=== PATIENT | male | born 1965 | race Two or more races ===

== ENCOUNTER 2020-04-30 08:24 | Outpatient (REF) | payer OTHER, SELFPAY ==
--- NOTE | 2020-04-30 08:42 | XR_ITS ---
EXAMINATION: XR LUMBOSACRAL SPINE CLINICAL INFORMATION: Pain. COMPARISON: None TECHNIQUE: Three views of the lumbosacral spine. FINDINGS: Alignment is anatomic. Disc spaces are maintained. There is mild marginal osteophytosis at L2-L3 and L3-L4. The paravertebral soft tissues are unremarkable. IMPRESSION: Mild spondylosis L2-L3 and L3-L4.
== END 2020-04-30 08:25 | disposition home or self-care (01) ==
LOC: HO.XRAY 08:24
PROVIDERS: PCP Internal Medicine; Visit Provider Physical Medicine & Rehabilitation
DX: M54.5 Low back pain (principal)
CPT/HCPCS: 72100

== ENCOUNTER 2020-11-03 07:46 | Outpatient (REF) | payer OTHER, SELFPAY | END 2020-11-03 07:47 | disposition home or self-care (01) | LOC: HO.HOSX 07:46 | PROVIDERS: PCP Internal Medicine; Visit Provider Orthopaedic Surgery | DX: Z13.89 Encounter for screening for other disorder (principal) ==

== ENCOUNTER 2020-11-11 07:10 | Outpatient (REF) | payer OTHER, SELFPAY ==
--- NOTE | ~2020-11-11 | MR_ITS ---
EXAMINATION: MRI SHOULDER WITHOUT CONTRAST, LEFT CLINICAL INFORMATION: Other specific derangements of left shoulder. Patient reports left shoulder pain for 2 months, decreased range of motion, and no recent injury. COMPARISON: None. TECHNIQUE: MRI scanning is performed using a standard protocol on a high-field strength 1.5 Mirlande magnet. FINDINGS: ROTATOR CUFF: There is mild distal supraspinatus and infraspinatus tendinosis. There is distal subscapularis tendinosis with a small interstitial insertional tear measuring 8 mm transverse and 3 mm craniocaudal. The teres minor tendon is intact. There is trace edema/fluid in the subacromial-subdeltoid bursa. No muscle atrophy or fatty infiltration. BICEPS: There is tendinosis of the intra-articular portion of the long head of the biceps tendon, particularly toward the biceps anchor. CORACOACROMIAL ARCH: The undersurface of the acromion is relatively flat with a small anterior hook (subtle type III acromion process). No subacromial spur. Mild osteoarthritis of the acromioclavicular joint. LABRUM/CAPSULE: Normal. GLENOHUMERAL JOINT/MARROW: Normal. MR/MR shoulder LT wo con IMPRESSION: 1. Mild distal supraspinatus and infraspinatus tendinosis. 2. Distal subscapularis tendinosis with small interstitial insertional tear. 3. Minor subacromial-subdeltoid bursitis. 4. Long head biceps tendinosis. 5. Small anterior hook of the acromion process suggesting a subtle type III acromion process. 6. Mild osteoarthritis of the acromioclavicular joint.
== END 2020-11-11 07:11 | disposition home or self-care (01) ==
LOC: HO.MRI 07:10
PROVIDERS: Visit Provider Orthopaedic Surgery
DX: M24.812 Other specific joint derangements of left shoulder, not elsewhere classified (principal)
CPT/HCPCS: 73221

== ENCOUNTER → 2020-11-21 07:56 | Outpatient (BNVA) | payer OTHER, SELFPAY | PROVIDERS: PCP Pediatrics; Visit Provider Orthopaedic Surgery | DX: M75.102 Unspecified rotator cuff tear or rupture of left shoulder, not specified as traumatic (principal) | CPT/HCPCS: 20610; J1040 ==

== ENCOUNTER 2020-12-19 07:00 | Outpatient (RCR) | payer OTHER, SELFPAY ==
--- NOTE | 2020-12-01 07:50 | MHC.PT.EP ---
[facility] [place] Office [place] Office [place] Office [address] Naida Denson [address] [phone] F: [phone] F: [phone] F: [phone] F: [phone] Physical Therapy Plan of Care Date of Evaluation: Date of Surgery: Diagnosis: unspecified RTC tear L shoulder Assessment: 55 y/o RHD male referred to PT with unspecified RTC tear L shoulder. 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 Examination shows decreased L RTC strength and scapular strength, painful arc with flexion and abduction, and impaired postural awareness. Recommend PT 2x/week for 5 weeks to address impairments, implement HEP, and optimize functional mobility. Pt reports he would like to come only 1x due to co-pay and work schedule. He would like to learn exercises for home. Next visit, we will implement HEP. Frequency and Duration: The patient will be seen 1x for 1 weeks Short Term Goals: 1. I with HEP [facility] Goals: 1 week 1. I with HEP 2. Pt will be able to state precautions of total gym that he has at home and know how to modify pec fly/ lat pulldown exercises. Treatment Plan: Modalities to reduce pain, spasms and effusion. Manual therapy to restore motion and function. Therapeutic exercise to improve strength and flexibility. Neuromuscular re-education for posture and balance. Therapeutic activities to return to functional activities of daily living. Electronically signed by: Piper Zavaleta PT Please sign and return to therapist. Thank you for your referral.
--- NOTE | 2021-01-19 14:43 | MHC.PT.DC ---
[facility] [place] Office [place] Office [place] Office [address] Naida Denson [address] [phone] F: [phone] F: [phone] F: [phone] F: [phone] Physical Therapy Discharge Report Diagnosis: unspecified RTC tear L shoulder Date of Surgery: Date of Evaluation: 12/01/20 Date of Discharge: 01/19/21 Treatments to Date: 3 Cancellations to Date: 0 No Shows to Date: 0 Discharge Status: Independent with HEP Discharge Summary: Pt d/c secondary to I with HEP and only wanted to attend 1x/week for 2-3 weeks. Reviewed HEP and no further questions. He did not f/u with further visits. Electronically signed by: Piper Zavaleta PT Please sign and return to therapist. Thank you for your referral.
== END 2021-01-19 14:00 | disposition home or self-care (01) ==
LOC: HO.PT 07:00
PROVIDERS: PCP Internal Medicine; Visit Provider Orthopaedic Surgery
DX: M75.102 Unspecified rotator cuff tear or rupture of left shoulder, not specified as traumatic (principal)
CPT/HCPCS: 97110; 97161

== ENCOUNTER → 2021-01-09 09:03 | Outpatient (BNVA) | payer OTHER, SELFPAY | PROVIDERS: PCP Internal Medicine; Visit Provider Orthopaedic Surgery ==

== ENCOUNTER → 2021-06-06 14:15 | Outpatient (BNVA) | payer OTHER, SELFPAY | PROVIDERS: PCP Internal Medicine; Referring Provider Internal Medicine; Visit Provider Surgery ==

== ENCOUNTER 2021-06-20 05:49 | Outpatient (REF) | payer OTHER, SELFPAY ==
--- NOTE | ~2021-06-20 | CT_ITS ---
EXAMINATION: CT ABDOMEN AND PELVIS WITH CONTRAST CLINICAL INFORMATION: Left lower quadrant pain. COMPARISON: None. TECHNIQUE: Multidetector volumetric images were obtained from the superior aspect of the liver through the pubic symphysis following administration 85 mL of Omnipaque 350 intravenous contrast. Sagittal and coronal reformatted images were obtained on the technologist's workstation. Oral contrast: Yes This CT examination was performed using dose optimization techniques as appropriate, variously including the following: *Automated exposure control *Adjustment of mA and/or kV according to patient size (this includes techniques or standardized protocols for targeted exams where dose is matched to indication/reason for exam; i.e. extremities or head) *Use of iterative reconstruction technique DLP: 312 mGy-cm. FINDINGS: LUNG BASES: The visualized lung bases are unremarkable. LIVER, GALLBLADDER, AND BILIARY TREE: The liver is normal in size, shape, and attenuation. No focal hepatic lesion or biliary ductal dilatation is present. The gallbladder is unremarkable with no evidence of radiopaque gallstones, gallbladder wall thickening, or obvious pericholecystic inflammatory changes. PANCREAS: Unremarkable. SPLEEN: Unremarkable. ADRENAL GLANDS: Unremarkable. KIDNEYS AND URETERS: The kidneys are normal in size, shape, and attenuation. No hydronephrosis, hydroureter, or calculi seen. No perinephric stranding. BLADDER: Unremarkable. GASTROINTESTINAL TRACT: There is stool throughout the colon questionable for constipation. The small and large bowel are otherwise unremarkable. The appendix is not identified. The stomach is unremarkable. ABDOMINAL WALL: There are small bilateral hernias containing fat. LYMPH NODES: Normal. VASCULAR: Unremarkable. PELVIC VISCERA: Unremarkable. OSSEOUS STRUCTURES: There are degenerative changes of the spine. CT/CT abdomen pelvis w con IMPRESSION: Stool throughout the colon suggestive of constipation. Fleischner guidelines were followed.
[2021-06-20 07:46] LABS: Blood Urea Nitrogen 20 mg/dL (9-16); Estimated Glomerular Filt Rate > 60
[2021-06-20] MEDS: Barium Sulfate Oral (Vanilla) 450 ML ORAL.SUSP 900 ML PO (10:06)
[2021-06-20] MEDS: iohexoL 350 MG/ML 100 ML INFUS..BTL IV (10:06)
== END 2021-06-20 05:50 | disposition home or self-care (01) ==
LOC: HO.CT 05:49
PROVIDERS: PCP Internal Medicine; Visit Provider Surgery
DX: R10.814 Left lower quadrant abdominal tenderness (principal)
CPT/HCPCS: 36415; 74177; 82565; 84520; Q9967

== ENCOUNTER → 2021-06-29 08:55 | Outpatient (BNVA) | payer OTHER, SELFPAY | PROVIDERS: PCP Internal Medicine; Referring Provider Internal Medicine; Visit Provider Surgery ==

== ENCOUNTER 2021-08-18 19:05 | Emergency (ER) | payer OTHER, SELFPAY ==
[2021-08-18 19:48] VITALS: BP 137/83; PULSE 75; RESP 16; TEMP 36; O2SAT 98; BMI 26.6
--- NOTE | 2021-08-18 22:31 | ED.EXTPRO ---
HPI - Extremity Problem General Chief complaint: Extremity Problem Stated complaint: lt leg pain Time Seen by Provider: 08/18/21 21:50 Source: patient Mode of arrival: ambulatory Limitations: no limitations History of Present Illness HPI Narrative: Patient with chronic left thigh pain posteriorly for last 2 years been followed by pain clinic neurologist and PCP on multiple pain medication muscle relaxants comes here for pain getting worse for last 4 days . Pain is localized to the posterior part of the thigh without any swelling of the thigh no relation with movement or ambulation no back pain no numbness or loss of sensation of the lower extremity no bladder bowel involvement patient been followed by pain clinic also Related Data Home Medications Medication Instructions Recorded Confirmed cholecalciferol (vitamin D3) 25 25 mcg PO DAILY 11/03/20 06/29/21 mcg (1,000 unit) tablet cholecalciferol (vitamin D3) 50 50 mcg PO DAILY 11/03/20 06/29/21 mcg (2,000 unit) capsule fluticasone propionate 50 1 spray INTRANASAL DAILY 11/03/20 06/29/21 mcg/actuation nasal spray,suspension loratadine 10 mg tablet 10 mg PO DAILY 11/03/20 06/29/21 naproxen sodium 550 mg tablet 550 mg PO BID PRN 11/03/20 06/29/21 diclofenac sodium 1 % topical gel 2 g TOPICAL QID 01/09/21 06/29/21 magnesium oxide 400 mg (241.3 mg 200 mg PO QAM 01/09/21 06/29/21 magnesium) tablet Allergies Allergy/AdvReac Type Severity Reaction Status Date / Time grass pollen [GRASS POLLEN] Allergy Severe FACIAL Verified 06/29/21 09:03 SWELLING nut - unspecified Allergy Severe THROAT Verified 06/29/21 09:03 [NUT - UNSPECIFIED] CLOSING, EYES SHUT. Review of Systems Review of Systems: Yes all other systems are reviewed and are negative [facility] Past Medical History Medical History Internal derangement of left shoulder Painful arc syndrome of left shoulder Surgical History History of shoulder surgery Family History Family History Father No problems noted. Mother No problems noted. 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 Oriented X3. No acute distress. Anxious CVS: Normal heart rate and rhythm. Pulses normal. Respiratory: No respiratory distress. Equal air entry bilateral, Abdomen: Soft and nontender. Bowel sounds are present, Skin: Skin warm and dry. Normal skin color. Normal skin turgor. Extremities: No lower extremity edema. No calf tenderness, localized tenderness left thigh posteriorly about 10 cm above the popliteal fossa, SLR negative bilaterally. gait is normal Neuro: Oriented X 3. No motor deficit. No sensory deficit.No cerebellar signs , cranial nerves II-XII intact MDM - Extremity (Nontraumatic) MDM Narrative Medical decision making narrative: D-dimer negative for blood clots patient pain in left leg is likely from musculoskeletal origin already has a plan to see pain clinic and neurologist will follow with them Lab Data Attestation: I reviewed the patient's lab results. Labs: Lab Results 08/18/21 Range/Units 22:20 D-Dimer High Sensitivty < 150 NG/ML Discharge Plan Discharge Clinical Impression: Musculoskeletal leg pain Qualifiers: Laterality: left Qualified Code(s): M79.605 - Pain in left leg Patient Disposition: Home, Self-Care Instructions: Leg Pain (ED) Additional Instructions: Your have muscular leg pain follow-up with your neurologist/PCP / pain clinic as planned Take medication as prescribed Your blood test Test for the clot in the leg is negative Prescriptions: No Action cholecalciferol (vitamin D3) 50 mcg (2,000 unit) capsule 50 mcg PO DAILY RF: 0 naproxen sodium 550 mg tablet 550 mg PO BID PRN (Reason: pain) RF: 0 cholecalciferol (vitamin D3) 25 mcg (1,000 unit) tablet 25 mcg PO DAILY RF: 0 loratadine 10 mg tablet 10 mg PO DAILY RF: 0 fluticasone propionate 50 mcg/actuation spray,suspension 1 spray intranasal DAILY RF: 0 diclofenac sodium 1 % gel 2 g topical QID RF: 0 magnesium oxide 400 mg (241.3 mg magnesium) tablet 200 mg PO QAM RF: 0 Interventions: ED Discharge Assessment Last Done: 08/18/21 23:17 Discharge Date/Time: 08/18/21 23:18
[2021-08-18 22:54] LABS: D Dimer High Sensitivity < 150 NG/ML
== END 2021-08-18 23:18 | disposition home or self-care (01) ==
PROVIDERS: Emergency Provider Internal Medicine; PCP Internal Medicine
DX: M79.605 Pain in left leg (principal)
CPT/HCPCS: 36415; 85379; 99283

== ENCOUNTER → 2021-08-28 08:33 | Outpatient (BNVA) | payer OTHER, SELFPAY | PROVIDERS: PCP Internal Medicine; Visit Provider Internal Medicine ==

== ENCOUNTER 2021-09-07 12:56 | Outpatient (REF) | payer OTHER, SELFPAY ==
--- NOTE | ~2021-09-07 | MR_ITS ---
EXAMINATION: MR LUMBAR SPINE WITHOUT CONTRAST CLINICAL INFORMATION: Lumbar radiculopathy. COMPARISON: Lumbar spine radiographs 04/30/2020. TECHNIQUE: MRI of the lumbar spine was obtained using routine sequences without contrast. FINDINGS: There is slight grade 1 anterolisthesis of L3 on L4 that appears to be related to facet degenerative changes at this level. Alignment is otherwise normal. Vertebral heights are preserved. No acute bone marrow signal changes. There is slight loss of intervertebral disc height and T2 signal intensity at multiple levels related to disc degeneration. The tip of the conus medullaris is located at L1. No mass effect on the conus. Visualized distal cord signal intensity is normal. At L1-L2 the annular contour is normal. No canal or neuroforaminal compromise. At L2-L3 there is an asymmetrically bulging disc to the left. Mild canal stenosis. Mild mass effect on the foraminal/extraforaminal segment of the left L2 nerve root. At L3-L4 there is a diffusely bulging disc. Advanced facet degenerative change. Severe canal stenosis. Mild to moderate mass effect on both L3 foraminal nerve roots. At L4-L5 there is a diffusely bulging disc. Bilateral facet degenerative change. Mild canal stenosis. Symmetric subarticular zone narrowing causes abutment of both traversing L5 nerve roots. No foraminal nerve root compression. At L5-S1 the annular contour is normal. No canal or neuroforaminal compromise. Limited visualization of the retroperitoneal anatomy reveals no abnormal finding. Psoas and paraspinal muscle groups are symmetric. MR/MR lumbar spine wo con IMPRESSION: There is multilevel degenerative spondylosis of the lumbar spine with slight grade 1 anterolisthesis of L3 on L4 related to facet degenerative changes at this level. Severe canal stenosis at L3-L4. Mild canal stenosis at L2-L3 and L4-L5. There are varying degrees of mass effect on the traversing and foraminal segments of the nerve roots as described above. For instance there is mild mass effect on the foraminal/extraforaminal segment of the left L2 nerve root related to an asymmetrically bulging L2-L3 disc. There is also mild to moderate mass effect on both L3 foraminal nerve roots related to degenerative changes at L3-L4.
== END 2021-09-07 12:57 | disposition home or self-care (01) ==
LOC: HO.MRI 12:56
PROVIDERS: Visit Provider Internal Medicine
DX: M54.16 Radiculopathy, lumbar region (principal)
CPT/HCPCS: 72148

== ENCOUNTER → 2021-09-22 08:32 | Outpatient (BNVA) | payer OTHER, SELFPAY | PROVIDERS: PCP Internal Medicine; Visit Provider Internal Medicine ==

== ENCOUNTER 2021-10-25 05:40 | Outpatient (REF) | payer OTHER, SELFPAY ==
--- NOTE | ~2021-10-25 | FL_ITS ---
EXAMINATION: XR FLUOROSCOPY WITH IMAGES CLINICAL INFORMATION: Spinal stenosis lumbar region COMPARISON: None. TECHNIQUE: Fluoroscopy performed by Dr. Damien Peters. Fluoroscopy time: 0.1 minutes DAP: 0.516 Gycm2 Images: 2 FINDINGS: Needle and contrast seen overlying the mid dorsal area superior aspect of the L5 vertebral body. FL/FL guidance in treatment room IMPRESSION: Fluoroscopy provided for pain management.
== END 2021-10-25 05:41 | disposition home or self-care (01) ==
LOC: HO.RADIR 05:40
PROVIDERS: Visit Provider Internal Medicine
DX: M48.061 Spinal stenosis, lumbar region without neurogenic claudication (principal); M54.16 Radiculopathy, lumbar region
CPT/HCPCS: 62323; J1040; Q9967

== ENCOUNTER → 2021-12-01 08:29 | Outpatient (BNVA) | payer OTHER, SELFPAY | PROVIDERS: PCP Internal Medicine; Visit Provider Internal Medicine | DX: M48.061 Spinal stenosis, lumbar region without neurogenic claudication (principal) ==

== ENCOUNTER 2022-03-27 06:49 | Outpatient (REF) | payer OTHER, SELFPAY ==
[2022-03-27 07:02] LABS: MANUAL DIFF FLAG NO
[2022-03-27 07:15] LABS: Basophils Percent Auto 0.4 % (0-2); Eosinophils Absolute Auto 0.1 X10*3/uL (0.0-0.4); Eosinophils Percent Auto 1.5 % (0-4); Hemoglobin 13.8 g/dl (14.0-18.0); Imm Gran Abs Auto 0.01 X10*3/uL (0.00-0.03); Imm Gran Pct Auto 0.2 % (0.0-0.4); Lymphocytes Percent Auto 36.7 % (20-40); Mean Corpuscular HGB Conc 32.9 g/dl (31.0-36.0); Mean Corpuscular Hemoglobin 28.3 pg (27.0-33.0); Mean Corpuscular Volume 86.1 fL (80.0-98.0); Mean Platelet Volume 10.8 fL (9.4-12.4); Monocytes Absolute Auto 0.6 X10*3/uL (0.1-1.2); Neutrophils Absolute Auto 2.8 x10*3/uL (2.0-8.3); Neutrophils Percent Auto 51.2 % (45-73); Platelet Count 189 X10*3/uL (160-400); Red Blood Count 4.88 X10*6/uL (4.60-5.80); Red Cell Distribution Width 12.9 % (11.0-16.0); White Blood Count 5.5 X10*3/uL (4.8-10.8)
[2022-03-27 07:22] LABS: Estimated Average Glucose 117 mg/dL; Hemoglobin A1c % 5.7 %
[2022-03-27 07:41] LABS: Alanine Aminotransferase 17 U/L (0-40); Alkaline Phosphatase 77 U/L (39-117); Anion Gap 13 (12-20); Aspartate Amino Transferase 21 U/L (5-37); Bilirubin Total 0.4 mg/dL (0.0-1.0); Blood Urea Nitrogen 19 mg/dL (9-16); Calcium 9.2 mg/dL (8.4-10.2); Carbon Dioxide 26 mmol/L (22-29); Chloride 105 mmol/L (96-108); Cholesterol 249 mg/dL; Estimated Glomerular Filt Rate > 60; Glucose Random 102 mg/dL (60-115); HDL Cholesterol 65 mg/dL; LDL Cholesterol Calculated 162 mg/dl; Potassium 3.7 mmol/L (3.3-5.1); Sodium 140 mmol/L (135-145); Total Protein 6.7 g/dL (6.5-8.0); Triglycerides 112 mg/dL
[2022-03-27 08:05] LABS: Thyroid Stimulating Hormone 2.04 uIU/mL (0.32-4.0)
== END 2022-03-27 06:50 | disposition home or self-care (01) ==
LOC: HO.LAB 06:49
PROVIDERS: PCP Internal Medicine; Visit Provider Internal Medicine
DX: Z00.00 Encounter for general adult medical examination without abnormal findings (principal); E78.2 Mixed hyperlipidemia
CPT/HCPCS: 36415; 80053; 80061; 83036; 84443; 85025

== ENCOUNTER 2022-05-01 16:53 | Outpatient (REF) | payer OTHER, SELFPAY | END 2022-05-01 16:54 | disposition home or self-care (01) | LOC: HO.XRAY 16:53 | PROVIDERS: Absent Provider Internal Medicine; PCP Internal Medicine; Visit Provider Family Medicine | DX: M79.645 Pain in left finger(s) (principal) | CPT/HCPCS: 73130 ==

== ENCOUNTER 2022-05-02 06:39 | Outpatient (REF) | payer OTHER, SELFPAY ==
[2022-05-02 08:01] LABS: Anion Gap 12 (12-20); Blood Urea Nitrogen 16 mg/dL (9-16); Calcium 9.8 mg/dL (8.4-10.2); Carbon Dioxide 31 mmol/L (22-29); Chloride 101 mmol/L (96-108); Cholesterol 193 mg/dL; Estimated Glomerular Filt Rate > 60; Glucose Random 97 mg/dL (60-115); HDL Cholesterol 65 mg/dL; LDL Cholesterol Calculated 108 mg/dl; Potassium 4.1 mmol/L (3.3-5.1); Sodium 140 mmol/L (135-145); Triglycerides 101 mg/dL
[2022-05-02 08:25] LABS: Prostate Specific Antigen 0.22 ng/mL (<0.05-4.0)
[2022-05-02 10:29] LABS: Appearance Urine Clear; Color Urine Yellow; Glucose Urine UA Negative (Negative); Leukocyte Esterase Urine Negative (Negative); Nitrite Urine Negative (Negative); PH 7.5 (5.0-9.0); Urine Blood Negative (Negative); Urine Ketones Negative (Negative); Urine Protein Negative (Neg-Trace)
[2022-05-02 10:35] LABS: Bacteria Urine None Seen (None Seen); Hyaline Casts Urine 0-2 /LPF (0-2); Squamous Epithelial Cell Urine 0-2 /HPF (0-2); WBC Urine 0-5 /HPF (0-5)
== END 2022-05-02 06:40 | disposition home or self-care (01) ==
LOC: HO.LAB 06:39
PROVIDERS: Absent Provider Internal Medicine; PCP Internal Medicine; Visit Provider Family Medicine
DX: Z12.5 Encounter for screening for malignant neoplasm of prostate (principal); E78.5 Hyperlipidemia, unspecified; R32 Unspecified urinary incontinence
CPT/HCPCS: 36415; 80048; 80061; 81001; 84153; 87086

== ENCOUNTER → 2022-09-28 13:29 | Outpatient (BNVA) | payer OTHER, SELFPAY | PROVIDERS: PCP Internal Medicine; Visit Provider Physician Assistant | DX: Z13.89 Encounter for screening for other disorder (principal) ==

== ENCOUNTER 2023-02-27 05:56 | Outpatient (REF) | payer OTHER, SELFPAY ==
--- NOTE | ~2023-02-27 | CT_ITS ---
EXAMINATION: CT ABDOMEN AND PELVIS WITH CONTRAST CLINICAL INFORMATION: Abdominal pain. COMPARISON: CT scan of the abdomen and pelvis dated 06/20/2021. TECHNIQUE: Multidetector volumetric images were obtained from the superior aspect of the liver through the pubic symphysis following administration 85 mL of Omnipaque 350 intravenous contrast. Sagittal and coronal reformatted images were obtained on the technologist's workstation. Oral contrast: No This CT examination was performed using dose optimization techniques as appropriate, variously including the following: *Automated exposure control *Adjustment of mA and/or kV according to patient size (this includes techniques or standardized protocols for targeted exams where dose is matched to indication/reason for exam; i.e. extremities or head) *Use of iterative reconstruction technique DLP: 298 mGy-cm FINDINGS: LUNG BASES: The visualized lung bases are unremarkable. LIVER, GALLBLADDER, AND BILIARY TREE: Tiny hypoechoic focus anterosuperiorly in the dome is too small to characterize. The remainder of the liver is unremarkable. PANCREAS: Unremarkable. SPLEEN: Unremarkable. ADRENAL GLANDS: Unremarkable. KIDNEYS AND URETERS: The kidneys are normal in size, shape, and attenuation. No hydronephrosis, hydroureter, or calculi seen. No perinephric stranding. BLADDER: Unremarkable. GASTROINTESTINAL TRACT: The stomach, small bowel and appendix are unremarkable. The colon shows mild to moderate stool distally to the rectum without surrounding abnormality. ABDOMINAL WALL: Small fat-containing bilateral inguinal hernias without associated abnormality. LYMPH NODES: No lymphadenopathy. VASCULAR: Unremarkable. PELVIC VISCERA: Unremarkable. OSSEOUS STRUCTURES: Unremarkable. CT/CT abdomen pelvis w IV con IMPRESSION: 1. No acute intra-abdominal/pelvic abnormality to explain the patient's pain. 2. Small fat-containing bilateral inguinal hernias without associated abnormality. No significant change.
[2023-02-27] MEDS: iohexoL 350 MG/ML 100 ML INFUS..BTL IV (08:23)
[2023-02-27] MEDS: Barium Sulfate Oral (Vanilla) 450 ML ORAL.SUSP 900 ML PO (08:23)
[2023-02-27 13:41] LABS: Creatinine POC 0.6 mg/dL (0.5-1.4); GFR POC 60
== END 2023-02-27 05:57 | disposition home or self-care (01) ==
LOC: HO.CT 05:56
PROVIDERS: PCP Internal Medicine; Visit Provider Internal Medicine
DX: R10.32 Left lower quadrant pain (principal)
CPT/HCPCS: 74177; 82565; Q9967

== ENCOUNTER 2023-03-11 06:10 | Outpatient (REF) | payer OTHER, SELFPAY ==
--- NOTE | ~2023-03-11 | XR_ITS ---
EXAMINATION: XR SHOULDER, LEFT CLINICAL INFORMATION: Left shoulder pain COMPARISON: MR left shoulder 11/11/2020. TECHNIQUE: AP external rotation, Grashey, scapular Y, and axillary views of the left shoulder. FINDINGS: Mild hypertrophic change along the acromioclavicular joint. Acromioclavicular joint preserved. Glenohumeral alignment maintained. Degenerative changes in the imaged upper thoracic spine. No abnormal soft tissue calcifications identified adjacent to the humeral head. XR/XR shoulder LT min 2V IMPRESSION: Mild osteoarthritis acromioclavicular joint.
== END 2023-03-11 06:11 | disposition home or self-care (01) ==
LOC: HO.XRAY 06:10
PROVIDERS: PCP Internal Medicine; Visit Provider Internal Medicine
DX: M25.512 Pain in left shoulder (principal)
CPT/HCPCS: 73030

== ENCOUNTER 2023-04-22 16:22 | Outpatient (REF) | payer OTHER, SELFPAY ==
[2023-04-22 17:29] LABS: Alanine Aminotransferase 17 U/L (0-40); Albumin Level 4.2 g/dL (3.5-5.0); Alkaline Phosphatase 78 U/L (39-117); Anion Gap 16 (12-20); Aspartate Amino Transferase 21 U/L (5-37); Bilirubin Direct 0.2 mg/dL (0.0-0.5); Bilirubin Total 0.5 mg/dL (0.0-1.0); Blood Urea Nitrogen 10 mg/dL (9-16); Calcium 9.8 mg/dL (8.4-10.2); Carbon Dioxide 27 mmol/L (22-29); Chloride 102 mmol/L (96-108); Cholesterol 231 mg/dL (<200); Estimated Glomerular Filt Rate > 60; Glucose Random 84 mg/dL (60-115); HDL Cholesterol 65 mg/dL (>40); LDL Cholesterol Calculated 145 mg/dL (<100); Potassium 3.5 mmol/L (3.3-5.1); Sodium 141 mmol/L (135-145); Total Protein 7.2 g/dL (6.5-8.0); Triglycerides 105 mg/dL (<150)
== END 2023-04-22 16:23 | disposition home or self-care (01) ==
LOC: HO.LAB 16:22
PROVIDERS: PCP Internal Medicine; Visit Provider Internal Medicine
DX: E78.00 Pure hypercholesterolemia, unspecified (principal)
CPT/HCPCS: 36415; 80048; 80061; 80076

== ENCOUNTER 2023-06-10 10:20 | Outpatient (AMB) | payer OTHER, SELFPAY ==
--- NOTE | 2023-06-10 10:22 | A.OFFVIS_ITS ---
Intake Intake Visit Reasons: o/v Painful arc syndrome of left shoulder Intake Note: Alvin is a 57 year old right hand dominant male who presents today for a follow up of his left shoulder. At his last appointment it was recommended that he continue activity modification and scapular stabilization. Possibility of subacromial decompression in the future but it would be premature at this time. Jacey reports that he had not had any changes in his symptoms, she explains that he is worried as he had surgery on the right sohulder and the left shoulder is feeling the same as the right did prior to surgery. 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 Allergies grass pollen [GRASS POLLEN] Allergy (Severe, Verified 09/28/22 13:42) FACIAL SWELLING nut - unspecified [NUT - UNSPECIFIED] Allergy (Severe, Verified 09/28/22 13:42) THROAT CLOSING, EYES SHUT. HPI o/v Painful arc syndrome of left shoulder HPI Details This is a 58 year old man who presents for a follow up of his left shoulder painful arc syndrome. He has a hx of bilateral shoulder in the past, and has known mild shoulder OA. He complains of pain with daily activity, worse with overhead activity, lifting, and at night. 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 He had done some exercises at home, but stopped due to his pain. He was last seen for his shoulder on 01/09/21 and told to continue his home exercises, and that he may benefit from a SAD in the future. He is hesitant to begin formal PT as he is worried about the cost. [facility] Medical History (Updated 06/10/23 @ 11:10 by Taco Crabtree) Spinal stenosis of lumbar region Lumbar spondylosis Painful arc syndrome of left shoulder Internal derangement of left shoulder Surgical History History of shoulder surgery Family History Father No problems noted. Mother No problems noted. 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 Review of Systems Const All systems reviewed & are unremarkable except as noted in HPI and below Physical Exam Const General: no acute distress, alert and awake Orientation/consciousness: patient oriented x3 HEENT Head: Yes normocephalic and Yes atraumatic Eyes EOM: EOMs intact bilaterally Resp Effort & Inspection: normal respiratory effort and able to speak in complete sentences Cardio Jugular venous distension: no JVD Skin General skin exam: turgor normal Rashes: no rashes Neuro General: patient oriented x3 Extrem Other: Left Shoulder: 4+/5 ec + O'toña's 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 He has pain with daily activity, worse with overhead activity, lifting, and at night. He denies any recent prior treatment. I discussed his diagnosis and treatment options. I recommend he use his LUE for daily activities as tolerated. I ordered an MRI of his left shoulder, and he was given a handout of shoulder exercises. He will follow up when completed for review. (2) Tear of left biceps muscle: Code(s): S46.212A - Strain of muscle, fascia and tendon of other parts of biceps, left arm, initial encounter Plan Scribed for Salomón Barragan MD by Taco Crabtree, regional medical director, on 06/10/23 at 11:15 AM, EST. Orders: Orders MR shoulder LT wo con Today M24.812 - Other specific joint derangements of left shoulder, not elsewhere classified, S46.212A - Strain of muscle, fascia and tendon of other parts of biceps, left arm, initial encounter Coding Level of Care Code Est Pt Level 4 (41892) Diagnoses Internal derangement of left shoulder M24.812 Tear of left biceps muscle S46.212A
== END 2023-06-10 11:58 | disposition home or self-care (01) ==
PROVIDERS: PCP Internal Medicine; Visit Provider Orthopaedic Surgery
DX: M24.812 Other specific joint derangements of left shoulder, not elsewhere classified (principal); S46.212A Strain of muscle, fascia and tendon of other parts of biceps, left arm, initial encounter
CPT/HCPCS: 99214

== ENCOUNTER → 2023-06-10 10:20 | Outpatient (BNVA) | payer OTHER, SELFPAY | PROVIDERS: PCP Internal Medicine; Visit Provider Orthopaedic Surgery ==

== ENCOUNTER 2023-06-27 15:30 | Outpatient (AMB) | payer OTHER, SELFPAY ==
--- NOTE | 2023-06-27 15:32 | A.OFFVIS_ITS ---
Intake Intake Visit Reasons: OV-Painful arc syndrome of left shoulder Intake Note: This is a 58 year old male who presents for a follow up for his left shoulder MRI. Allergies grass pollen [GRASS POLLEN] Allergy (Severe, Verified 06/27/23 15:34) FACIAL SWELLING nut - unspecified [NUT - UNSPECIFIED] Allergy (Severe, Verified 06/27/23 15:34) THROAT CLOSING, EYES SHUT. Medication List - Last Reconciled 06/27/23 by Aylin Ramirez RN cholecalciferol (vitamin D3) 25 mcg PO DAILY fluticasone propionate 50 mcg/actuation 1 spray intranasal DAILY loratadine 10 mg PO DAILY magnesium oxide 200 mg PO QAM naproxen sodium 550 mg PO BID PRN HPI OV-Painful arc syndrome of left shoulder HPI Details Alvin is a 58 year old man who presents for a follow up of his left shoulder internal derangement. He has a hx of right RTC repair in 2016 . He complains of pain with daily activity, worse with overhead activity, lifting, and at night. He complains of pain in his biceps with lifting activities. He had done supervised PT but stopped due to his pain. He is here today for MRI review. [facility] Medical History (Updated 06/10/23 @ 11:10 by Taco Crabtree) Spinal stenosis of lumbar region Lumbar spondylosis Painful arc syndrome of left shoulder Internal derangement of left shoulder Surgical History History of shoulder surgery Family History Father No problems noted. Mother No problems noted. 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 Review of Systems Const All systems reviewed & are unremarkable except as noted in HPI and below Physical Exam Const General: no acute distress, alert and awake Orientation/consciousness: patient oriented x3 HEENT Head: Yes normocephalic and Yes atraumatic Eyes EOM: EOMs intact bilaterally Resp Effort & Inspection: normal respiratory effort and able to speak in complete sentences Cardio Jugular venous distension: no JVD Skin General skin exam: turgor normal Rashes: no rashes Neuro General: patient oriented x3 Extrem Other: Left Shoulder: 4+/5 ec + O'toña's Neg H/N Psych Appearance: grossly normal Affect: normal affect Attitude: cooperative Results Reviewed Results Reviewed: I personally reviewed the MR images from 2020 1) Mild distal supraspinatus and infraspinatus tendinosis. 2. Distal subscapularis tendinosis with small interstitial insertional tear. 3. Minor subacromial-subdeltoid bursitis. 4. Long head biceps tendinosis. 5. Small anterior hook of the acromion process suggesting a subtle type III acromion process. 6. Mild osteoarthritis of the acromioclavicular joint. Assessment & Plan Assessment & Plan (1) Internal derangement of left shoulder: Code(s): M24.812 - Other specific joint derangements of left shoulder, not elsewhere classified Plan: This is a 58 year old man with left shoulder internal derangement, with a likely biceps tendon tear. He has pain with daily activity, worse with overhead activity, lifting, and at night. He denies any recent prior treatment. I discussed his diagnosis and treatment options. I recommend shoulder with likely biceps tenotomy vs tenodesis if it isn't already completely torn. I discussed the risks benefits and alternatives including but not limited to the risk of pain, infection, stiffness, need for further surgery as well as potential medical complications. He will consider this and c ontacdt me if he would like to proceed forward. I had ordered another MRI but that has been difficult to obtain. Coding Level of Care Code Est Pt Level 4 (34933) Diagnoses Internal derangement of left shoulder M24.812
== END 2023-06-27 15:47 | disposition home or self-care (01) ==
LOC: HO.HOS 15:31
PROVIDERS: PCP Internal Medicine; Visit Provider Orthopaedic Surgery
DX: M24.812 Other specific joint derangements of left shoulder, not elsewhere classified (principal)
CPT/HCPCS: 99214

== ENCOUNTER → 2023-06-27 15:30 | Outpatient (BNVA) | payer SELFPAY | PROVIDERS: PCP Internal Medicine; Visit Provider Orthopaedic Surgery | DX: M24.812 Other specific joint derangements of left shoulder, not elsewhere classified (principal) | CPT/HCPCS: 99212 ==

== ENCOUNTER 2023-09-12 09:25 | Outpatient (AMB) | payer OTHER, SELFPAY ==
--- NOTE | 2023-09-12 09:34 | A.OFFVIS_ITS ---
Intake Intake Visit Reasons: Pre-Lt Shld , Biceps Tenotomy vs Tenodesis Intake Note: Alvin is a 58 year old left hand dominant male who presents today for a pre op appointment s/p Lt Shld 09/25/23 NE. Allergies grass pollen [GRASS POLLEN] Allergy (Severe, Verified 09/12/23 09:34) FACIAL SWELLING nut - unspecified [NUT - UNSPECIFIED] Allergy (Severe, Verified 09/12/23 09:34) THROAT CLOSING, EYES SHUT. Medication List - Last Reconciled 09/12/23 by Raquel Oakley PA-C cholecalciferol (vitamin D3) 25 mcg PO DAILY fluticasone propionate 50 mcg/actuation 1 spray intranasal DAILY loratadine 10 mg PO DAILY magnesium oxide 200 mg PO QAM naproxen sodium 550 mg PO BID PRN simvastatin 10 mg PO DAILY HPI Pre-Lt Shld , Biceps Tenotomy vs Tenodesis HPI Details 58-year-old right hand dominant male who presents in the office today for his preoperative history and physical exam prior to a left shoulder arthrosc opy to be performed on 09/25/[address] Salomón Barragan. Patient has an allergy history, as follows: -grass pollen; facial edema -Nut; throat closing, eye shut Patient is currently taking, as follows: -Cholecalciferol 25 mcg PO Daily -Fluticasone propionate 50 mcg/actuation 1 spray intranasal Daily -Loratadine 10 mg PO Daily -Magnesium oxide 200 mg PO QAM -Naproxen sodium 550 mg PO BID PRN -Simvastatin Patient has no significant medical history. Patient has a surgical history, as follows: -History of shoulder surgery Patient has a social history, as follows: -Patient is currently employed as a [employer] [facility] [employer] Medical History Hyperlipidemia Spinal stenosis of lumbar region Lumbar spondylosis Painful arc syndrome of left shoulder Internal derangement of left shoulder Surgical History (Updated 09/12/23 @ 09:56 by Raquel Oakley PA-C) S/P arthroscopy of right shoulder Family History Father No problems noted. Mother No problems noted. 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 Review of Systems Const All systems reviewed & are unremarkable except as noted in HPI and below Physical Exam Const General: cooperative, healthy appearing, comfortable, no acute distress, well developed, alert and awake Orientation/consciousness: patient oriented x3 HEENT Head: Yes normal to inspection, Yes normocephalic and Yes atraumatic Eyes General: appearance normal, both eyes and all related structures EOM: EOMs intact bilaterally Neck Neck: Yes normal visual inspection and Yes no lymphadenopathy Resp Effort & Inspection: normal respiratory effort and able to speak in complete sentences Cardio Jugular venous distension: no JVD Rate: regular rate Peripheral pulses: Peripheral pulses 2+ throughout GI Inspection: Yes normal to inspection Palpation (GI): Soft to palpation Skin General skin exam: no rashes or lesions noted Rashes: no rashes Neuro General: patient oriented x3 Extrem Other: Left Shoulder: 4+/5 ec + O'toña's Neg H/N Psych Appearance: grossly normal Mental Status: mental status grossly normal Affect: normal affect Attitude: cooperative Assessment & Plan Assessment & Plan (1) Internal derangement of left shoulder: Code(s): M24.812 - Other specific joint derangements of left shoulder, not elsewhere classified Plan Mr. Ifrah Ly is a 58-year-old right hand dominant male who presents in the office today for his preoperative history and physical exam prior to a left shoulder arthroscopy to be performed on 09/25/[address] Salomón Barragan. 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 We discussed the risks, benefits and alternatives to the surgery as well as the rehabilitation course. The risks; which include, but are not limited to infection, bleeding, nerve injury, ongoing pain, swelling, and stiffness, perioperative risk of injury to bones and soft tissues, and blood clots. I have answered all questions and with their understanding they have consented to move forward with a left shoulder arthroscopy to be performed on 09/25/[address] Salomón Barragan. Follow up will be at the post operative appointment on 10/01/2023 at 9:30 am, or sooner if needed. Patient Instructions: Scribed by Dionne Manzano medical center manager, for Raquel Oakley PA-C on 09/12/2023 at 9:35 am, EST. Coding Level of Care Code Global (20596) Diagnoses Internal derangement of left shoulder M24.812
== END 2023-09-12 09:55 | disposition home or self-care (01) ==
PROVIDERS: PCP Internal Medicine; Visit Provider Physician Assistant
DX: M24.812 Other specific joint derangements of left shoulder, not elsewhere classified (principal)
CPT/HCPCS: 99024

== ENCOUNTER → 2023-09-12 09:25 | Outpatient (BNVA) | payer OTHER, SELFPAY | PROVIDERS: PCP Internal Medicine; Visit Provider Physician Assistant ==

== ENCOUNTER 2023-09-25 07:52 | Day surgery (SDC) | payer OTHER, SELFPAY ==
[2023-09-23 11:14] VITALS: BMI 25.8
[2023-09-23 11:23] VITALS: BMI 25.8
--- NOTE | 2023-09-24 10:04 | P.CONAN_ITS ---
Documented by User: Paulina Campbell NP 09/24/23 10:05 HPI - Anesthesia Eval Consult details Narrative: 58yo M for Left Shoulder Arthroscopy bicep tenotomy vs tenodesis PONV PMFSH Active Problems Active Problems: All Active Problems (Updated 09/23/23 @ 11:16 by Shereen Adams RN) Tear of left biceps muscle (Acute) Hyperextension injury of finger of left hand (Acute) Spinal stenosis of lumbar region with neurogenic claudication (Acute) Lumbar radiculitis (Acute) Left lower quadrant abdominal tenderness (Acute) S/P arthroscopy of right shoulder (Acute) Spinal stenosis of lumbar region (Acute) Lumbar spondylosis (Acute) Painful arc syndrome of left shoulder (Acute) Internal derangement of left shoulder (Acute) Past Medical History Medical History PONV (postoperative nausea and vomiting) Environmental allergies Hyperlipidemia Spinal stenosis of lumbar region Lumbar spondylosis Painful arc syndrome of left shoulder Internal derangement of left shoulder Family History Family History Father No problems noted. Mother No problems noted. Surgical History Surgical History Hx of colonoscopy History of back surgery S/P arthroscopy of right shoulder History of Problems with Anesthesia: Yes (PONV) Social History Social History Household Members: Family Housing: House Are you a primary daycare provider to a significant other at home: No Do you presently have visiting nurse or other home services: No Alcohol intake: never Patient Tobacco Use Status: Never used Tobacco Use of substances other than those prescribed or required for medical reasons: No Are you DNR?: No Advance Directives: No Advance Directives Information Provided: Yes Advance Directives on File: No Recently lost weight without trying: No Current occupational status: employed 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 Meds Allergies Allergy/AdvReac Type Severity Reaction Status Date / Time grass pollen [GRASS POLLEN] Allergy Severe Shortness Verified 09/25/23 09:09 of Breath nut - unspecified Allergy Intermediate throat Verified 09/25/23 09:09 [NUT - UNSPECIFIED] itching Home Medications Medication Instructions Recorded Confirmed Last Taken Type cholecalciferol (vitamin D3) 25 25 mcg PO DAILY 11/03/20 09/23/23 Unknown History mcg (1,000 unit) tablet fluticasone propionate 50 1 spray intranasal DAILY 11/03/20 09/23/23 Unknown History mcg/actuation nasal spray,suspension loratadine 10 mg tablet 10 mg PO DAILY 11/03/20 09/23/23 Unknown History naproxen sodium 550 mg tablet 550 mg PO BID PRN pain 11/03/20 09/23/23 Unknown History magnesium oxide 400 mg (241.3 mg 200 mg PO QAM 01/09/21 09/12/23 Unknown History magnesium) tablet simvastatin 10 mg tablet 10 mg PO DAILY 09/12/23 09/23/23 Unknown History Exam Height,Weight and Vital Signs: Height 5 ft 5 in Weight 70.307 kg Pertinent Lab Results Pertinent Lab Results: Laboratory Tests 03/27/22 04/22/23 07:00 16:33 WBC 5.5 Hgb 13.8 L Hct 42.0 Plt Count 189 Sodium 141 Potassium 3.5 Chloride 102 Carbon Dioxide 27 BUN 10 Creatinine 0.83 Assessment and Plan Assessment Anesthesia Assessment: Chart Reviewed Final Anesthetic Review History of Problems with Anesthesia: Yes (PONV) Documented by User: Jackelin Paniagua MD 09/25/23 10:11 [facility] Past Medical History Medical History PONV (postoperative nausea and vomiting) Environmental allergies Hyperlipidemia Spinal stenosis of lumbar region Lumbar spondylosis Painful arc syndrome of left shoulder Internal derangement of left shoulder Family History Family History Father No problems noted. Mother No problems noted. Family history of problems with anesthesia: No Surgical History Surgical History Hx of colonoscopy History of back surgery S/P arthroscopy of right shoulder Social History Social History Household Members: Family Housing: House Are you a primary daycare provider to a significant other at home: No Do you presently have visiting nurse or other home services: No Alcohol intake: never Patient Tobacco Use Status: Never used Tobacco Use of substances other than those prescribed or required for medical reasons: No Are you DNR?: No Advance Directives: No Advance Directives Information Provided: Yes Advance Directives on File: No Recently lost weight without trying: No Current occupational status: employed 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 Meds Allergies Allergy/AdvReac Type Severity Reaction Status Date / Time grass pollen [GRASS POLLEN] Allergy Severe Shortness Verified 09/25/23 09:09 of Breath nut - unspecified Allergy Intermediate throat Verified 09/25/23 09:09 [NUT - UNSPECIFIED] itching Home Medications Medication Instructions Recorded Confirmed Last Taken Type cholecalciferol (vitamin D3) 25 25 mcg PO DAILY 11/03/20 09/23/23 Unknown History mcg (1,000 unit) tablet fluticasone propionate 50 1 spray intranasal DAILY 11/03/20 09/23/23 Unknown History mcg/actuation nasal spray,suspension loratadine 10 mg tablet 10 mg PO DAILY 11/03/20 09/23/23 Unknown History naproxen sodium 550 mg tablet 550 mg PO BID PRN pain 11/03/20 09/23/23 Unknown History magnesium oxide 400 mg (241.3 mg 200 mg PO QAM 01/09/21 09/12/23 Unknown History magnesium) tablet simvastatin 10 mg tablet 10 mg PO DAILY 09/12/23 09/23/23 Unknown History Exam Airway Mallampati Class: II TM Dist: >3cm Neck ROM: Full Heart: rrr Lungs: cta Assessment and Plan Assessment Anesthesia Assessment: Anesthesia Plan Discussed Final Anesthetic Review Family History of Problems with Anesthesia: No NPO: Yes ASA Class: II Final Preanesthetic Review: No Changes in Pt Med Stat, Meds/Allgs Chart Reviewed, Consent Obtained/Reviewed and Anes Risks/Benef Reviewed Patient Risk: Low Procedure Risk: Intermediate Anesthetic Plan Anesthetic Plan: GA and Regional Block Disposition: Standard PACU
[2023-09-25] VITALS (8 sets, daily range): BP systolic 106–122; BP diastolic 67–84; PULSE 73–103; RESP 15–18; TEMP 36.1–36.3; O2SAT 92–100; BMI 25.8
[2023-09-25] MEDS: Lactated Ringers 1,000 ML 100 ML IVCONT (09:37)
--- NOTE | 2023-09-25 10:14 | MHC.SHP ---
Pre-Procedural Eval Section A - 24 Hr Update-Section A only Date of Service: 09/25/23 The patient is an INPATIENT: No Changes since office visit: No Cold of Flu in the past 2 weeks, No New Medical Problems, No Changes in Medication and No Patient answered all questions The patient has been examined within 24 hours of the surgical procedure. The History & Physical has been completed within 30 days and I have reviewed it.: Yes Section B - Complete if H&P > 30 days Chief Complaint: Other specific joint derangements of left shoulder Allergies: Allergies Allergy/AdvReac Type Severity Reaction Status Date / Time grass pollen [GRASS POLLEN] Allergy Severe Shortness Verified 09/25/23 09:09 of Breath nut - unspecified Allergy Intermediate throat Verified 09/25/23 09:09 [NUT - UNSPECIFIED] itching Plan I have reviewed the history and physical and performed a pertinent physical examination on my patient. No changes have occurred unless specified. Time Spent With Patient Time: Total time managing care of this patient today ____ minutes.
--- NOTE | 2023-09-25 13:33 | PM.OP ---
Brief Operative Note Date of Service: 09/25/23 Pre-op diagnosis: Left Shoulder impingement syndrome Post-op diagnosis: other (1) SLAP tear 2) RTC tear) Procedure: RTC repair Biceps tenotomy SAD Implants: Will and Nephew Helacoil x3 Surgeon: Salomón Barragan MD Anesthesia: GETA and regional Was an Specialized Developer used for this Procedure?: Yes Specialized Developer: Raquel Oakley Estimated blood loss (mL): 10 IV fluids (mL): 750 Pathology: none sent Condition: stable Disposition: PACU
[2023-09-25] MEDS: Ondansetron ODT 4 MG TAB.RAPDIS TRANSLINGU (15:23)
--- NOTE | 2023-09-27 13:20 | P.OP_ITS ---
Operative Note Operative Note Date of Service: 09/25/23 Narrative: Date of Service: 09/25/23 Pre-op diagnosis: Left Shoulder impingement syndrome Post-op diagnosis: other (1) SLAP tear 2) RTC tear) Procedure: RTC repair Biceps tenotomy SAD Implants: Will and Nephew Helacoil x3 Surgeon: Salomón Barragan MD Anesthesia: GETA and regional Was an Animal Anatomy Teacher used for this Procedure?: Yes Animal Anatomy Teacher: Raquel Oakley Estimated blood loss (mL): 10 IV fluids (mL): 750 Pathology: none sent Condition: stable Disposition: PACU Procedure in detail: Patient was brought to the operating room and placed the the beach chair position. All bony prominences were well padded and the limb was prepped and draped in standard sterile fashion. A time out was called to identify proper site, proper procedure and proper surgeon. IV antibiotics per weight were administered. I began by making a posterolateral stab incision with a 15 blade. A blunt trochar was placed into the glenohumeral joint and I insufflated the joint with saline and a 30 degree arthroscope was placed. I established an outside- in anterior portal just distal to the biceps tendon. I then began my inspection of the glenohumeral joint. There was a large degenerative SLAP tear at the biceps anchor ( Type 2). There were minimal cartilage changes at the inferior glenoid without humeral head changes. There was a full thickness undersurface supraspinatus tear. The subcapularis was intact. I debrided the loose cartilage of the glenoid and the degenerative labral tearing and performed a biceps tenotomy. I then removed the trochar and entered the subacromial space. A direct lateral portal was then established and I performed a bursectomy. The cuff was then examined. There was a full thickness tear of the supraspinatus without retraction. THis was a ~7mm crescentic tear. I placed one medial row double loaded anchor after using a tap just adjacent to the articular cartilage and then brought the suture limbs (4) through the medial cuff. I then debrided the bare area down to bleeding bone and, using a cross bridge configuration, brought 2 limbs to each of two lateral 5.0 anchors. This re-approximated the cuff anatomy anatomically. Once I was satisfied with the repair final images were captured. I performed a 5mm subacromial decompression and I removed all instrumentation. Portals were closed with nylon. Patient was placed in an abduction sling, extubated and brought to the recovery room in stable condition. There were no known complications.
== END 2023-09-25 15:25 | disposition home or self-care (01) ==
LOC: HO.SSS 07:52
PROVIDERS: PCP Pathology Anatomic Pathology & Clinical Pathology; Visit Provider Orthopaedic Surgery
PROC: (CPT 29805; principal; 2023-09-25 13:00)
DX: M75.102 Unspecified rotator cuff tear or rupture of left shoulder, not specified as traumatic (principal); M75.42 Impingement syndrome of left shoulder; M75.82 Other shoulder lesions, left shoulder; E78.5 Hyperlipidemia, unspecified; Z79.51 Long term (current) use of inhaled steroids; Z79.1 Long term (current) use of non-steroidal anti-inflammatories (NSAID); Z79.899 Other long term (current) drug therapy
CPT/HCPCS: 29827; 29826; C1713; J0131; J0171; J0665; J0690; J1100; J2250; J2371; J2405; J2704; J3010

== ENCOUNTER → 2023-09-25 07:52 | Outpatient (BNV) | payer OTHER, SELFPAY | PROVIDERS: PCP Pathology Anatomic Pathology & Clinical Pathology; Visit Provider Orthopaedic Surgery | DX: M75.102 Unspecified rotator cuff tear or rupture of left shoulder, not specified as traumatic (principal); M75.42 Impingement syndrome of left shoulder; S43.432A Superior glenoid labrum lesion of left shoulder, initial encounter | CPT/HCPCS: 29827 ==

== ENCOUNTER 2023-10-01 09:19 | Outpatient (AMB) | payer OTHER, SELFPAY ==
--- NOTE | 2023-10-01 09:22 | MHC.OFFVIS ---
Intake Intake Visit Reasons: PO-Lt Shld 09/25/23 NE Intake Note: Alvin is a 58 year old male who presents today for a post op appointment s/p Lt Shld 09/25/23 NE. Patient reports he is doing well, however when he makes small movements he feels a bit sore and stiff. Allergies grass pollen [GRASS POLLEN] Allergy (Severe, Verified 10/01/23 09:24) Shortness of Breath nut - unspecified [NUT - UNSPECIFIED] Allergy (Intermediate, Verified 10/01/23 09:24) throat itching HPI PO-Lt Shld 09/25/23 NE HPI Details 58-year-old male who presents in the office today 6 days status post left shoulder rotator cuff repair, biceps tenotomy, and SAD, which was performed on 09/25/[address] Barragan. The patient reports he is doing well, however he reports soreness and stiffness with small movements. [facility] Medical History PONV (postoperative nausea and vomiting) Environmental allergies Hyperlipidemia Spinal stenosis of lumbar region Lumbar spondylosis Painful arc syndrome of left shoulder Internal derangement of left shoulder Surgical History Hx of colonoscopy History of back surgery S/P arthroscopy of right shoulder Family History Father No problems noted. Mother No problems noted. 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 No surrounding erythema or drainage. No signs of infection. ROM forward flexion and abduction to 45 degrees. External rotation to neutral. NVI. Assessment & Plan Assessment & Plan (1) S/P rotator cuff repair: Comment: Left shoulder rotator cuff repair, biceps tenotomy, and SAD 09/25/2023 NE Code(s): Z98.890 - Other specified postprocedural states Plan Mr. Ifrah Ly is a 58-year-old male who presents in the office today 6 days status post left shoulder rotator cuff repair, biceps tenotomy, and SAD, which was performed on 09/25/[address] Barragan. The patient reports he is doing well, however he reports soreness and stiffness with small movements. Sutures were removed and steri-stripes were applied. Patient presented to the office today without the sling. He was educated on the importance of the sling in regards to healing. When he gets home he is agreeable to go back into the sling. His first physical therapy appointment is on 10/04/2023. Follow up will be in [address] Barragan, or sooner if needed. Patient Instructions: Scribed by Dionne Manzano medical record assistant, for Raquel Oakley PA-C on 10/01/2023 at 9:26 am, EST. Coding Level of Care Code Global (49891) Diagnoses S/P rotator cuff repair Z98.890
== END 2023-10-01 09:58 | disposition home or self-care (01) ==
PROVIDERS: PCP Internal Medicine; Visit Provider Physician Assistant
DX: Z98.890 Other specified postprocedural states (principal)
CPT/HCPCS: 99024

== ENCOUNTER → 2023-10-01 09:19 | Outpatient (BNVA) | payer OTHER, SELFPAY | PROVIDERS: PCP Internal Medicine; Visit Provider Physician Assistant ==

== ENCOUNTER 2023-10-31 08:07 | Outpatient (AMB) | payer OTHER, SELFPAY ==
--- NOTE | 2023-10-31 08:13 | MHC.OFFVIS ---
Intake Intake Visit Reasons: PO-Lt Shld 09/25/23 NE Intake Note: Alvin is a 58 year old right hand dominant male who presents today for a post operative appointment s/p Left RTC Repair, Biceps Tenotomy and SAD 09/25/23 NE. He was not wearing his sling for first post operative appointment, but presents today with sling on. Patient reports that he is doing well, he has been dong his exercises. He feels some tightness when doing the exercises. Allergies grass pollen [GRASS POLLEN] Allergy (Severe, Verified 10/01/23 09:24) Shortness of Breath nut - unspecified [NUT - UNSPECIFIED] Allergy (Intermediate, Verified 10/01/23 09:24) throat itching HPI PO-Lt Shld 09/25/23 NE HPI Details Alvin is a 58 year old right hand dominant male who presents today for a post operative appointment s/p Left RTC Repair, Biceps Tenotomy and SAD 09/25/23 NE. He was not wearing his sling for first post operative appointment, but presents today with sling on. Patient reports that he is doing well, he has been dong his exercises. He feels some tightness when doing the exercises. [facility] Medical History PONV (postoperative nausea and vomiting) Environmental allergies Hyperlipidemia Spinal stenosis of lumbar region Lumbar spondylosis Painful arc syndrome of left shoulder Internal derangement of left shoulder Surgical History Hx of colonoscopy History of back surgery S/P arthroscopy of right shoulder Family History Father No problems noted. Mother No problems noted. 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 May discontinue use of sling Continue with therapy pr protocol Follow up in 6 weeks Coding Level of Care Code Global (29237) Diagnoses S/P rotator cuff repair Z98.890
== END 2023-10-31 08:47 | disposition home or self-care (01) ==
PROVIDERS: PCP Internal Medicine; Visit Provider Orthopaedic Surgery
DX: Z98.890 Other specified postprocedural states (principal)
CPT/HCPCS: 99024

== ENCOUNTER → 2023-10-31 08:07 | Outpatient (BNVA) | payer OTHER, SELFPAY | PROVIDERS: PCP Internal Medicine; Visit Provider Orthopaedic Surgery ==

== ENCOUNTER 2023-12-10 07:00 | Outpatient (RCR) | payer OTHER, SELFPAY ==
--- NOTE | 2023-10-04 08:44 | MHC.PT.EP ---
[facility] [place] Office [place] Office [place] Office [address] Naida Denson [address] [phone] F: [phone] F: [phone] F: [phone] F: [phone] Physical Therapy Plan of Care Date of Evaluation: 10/04/23 Date of Surgery: 09/25/23 Diagnosis: S/P LEFT SUPRASPINATUS REPAIR BY NE W/ BICEPS TENOTOMY AND SAD () Assessment: AKOSUA IS A PLEASANT 58 YO GENTLEMAN WHO PRESENTS PO DAY 9 S/P LEFT RTC REPAIR. UPON EXAM HE DEMONSTRATES THE EXPECTED IMPAIRMENTS OF DECREASED ROM, DECREASED STRENGTH, ALTERED POSTURE AND POSITIONING, INCREASED UPPER TRAP GUARDING, AND INCREASED PAIN AND EDEMA. FUNCTIONAL LIMITATIONS INCLUDE DECREASED ABILITY TO PERFORM HOMEMAKING AND SELF-CARE TASKS, DECREASED ABILITY TO PERFORM PUSHING, PULLING, LIFTING AND REACHING. INABILITY TO DRIVE AND PERFORM WORK TASKS, DECREASED PARTICIPATION IN COMMUNITY AND RECREATIONAL ACTIVITIES AND DISRUPTED SLEEP. WE REVIEWED POST-OP PRECAUTIONS AND SLING USAGE MULTIPLE TIMES DURING OUR SESSION. THE PT IS A GOOD CANDIDATE FOR SKILLED PT DUE TO AGE, POTENTIAL REMEDIATION OF IMPAIRMENTS, TYPICAL DISEASE/CONDITION PROGRESSION AND PROGNOSIS, COMORBIDITIES, AND MOTIVATION. PT WOULD BENEFIT FROM TAILORED PROGRAM OF THERAPEUTIC ACTIVITIES, FUNCTIONAL TRAINING, POSTURAL EDUCATION, NEUROMUSCULAR RE-EDUCATION, AND MODALITIES NEEDED. Frequency and Duration: The patient will be seen 2 X WEEK FOR 12 WEEKS Short Term Goals: INITIATE HEP AND PROMOTE SELF MANAGEMENT OF SYMPTOMS Detention Goals: FULL, PAIN FREE ROM FULL UE STRENGTH, PAIN FREE TO PERFORM HOMEMAKING AND WORK TASKS WITHOUT RESTRICTION WITHOUT PAIN TO PLACE OBJECT AT MINIMUM OF 20# INTO CABINET AT SHOULDER HEIGHT Treatment Plan: Modalities to reduce pain, spasms and effusion. Manual therapy to restore motion and function. Therapeutic exercise to improve strength and flexibility. Neuromuscular re-education for posture and balance. Therapeutic activities to return to functional activities of daily living. Electronically signed by: MARIO GAITAN PT DPT Please sign and return to therapist. Thank you for your referral.
--- NOTE | 2023-12-26 10:35 | MHC.PT.DC ---
[facility] [place] Office [place] Office [place] Office [address] Naida Denson [address] [phone] F: [phone] F: [phone] F: [phone] F: [phone] Physical Therapy Discharge Report Diagnosis: S/P LEFT SUPRASPINATUS REPAIR BY NE W/ BICEPS TENOTOMY AND SAD () Date of Surgery: 09/25/23 Date of Evaluation: 10/04/23 Date of Discharge: 12/13/23 Treatments to Date: 11 Cancellations to Date: 0 No Shows to Date: 0 Discharge Status: Patient Elected to Stop Discharge Summary: At last attended visit, Alvin demonstrated improving but cont weakness in RTC. Fatigues quickly with activity but AROM is improved to WFLs. He phoned stating he is self DCing even though at last two attended visits we did encourage him to continue PT to address these deficits for a successful return to work. Electronically signed by: Merced Peck PT DPT Please sign and return to therapist. Thank you for your referral.
== END 2023-12-26 10:36 | disposition home or self-care (01) ==
LOC: HO.PT 07:00
PROVIDERS: PCP Internal Medicine; Visit Provider Orthopaedic Surgery
DX: M25.512 Pain in left shoulder (principal)
CPT/HCPCS: 97110; 97140; 97161; 97530; 97535

== ENCOUNTER 2023-12-12 08:18 | Outpatient (AMB) | payer OTHER, SELFPAY ==
--- NOTE | 2023-12-12 08:24 | MHC.OFFVIS ---
Vital Signs 12/12/23 08:26 Height 5 ft 5 in Weight 158 lb BMI 26.3 Intake Visit Reasons: PO-Lt Shld 09/25/23 NE-follow up Intake Note: Alvin is a 58 year old right hand dominant male who presents today for a post operative appointment s/p Left RTC Repair, Biceps Tenotomy and SAD 09/25/23 NE. Patient reports that he is doing well. He has good ROM but the shoulder is still feeling weak.When he does lift he gets a cramping sensation in the bicep. Allergies grass pollen [GRASS POLLEN] Allergy (Severe, Verified 12/12/23 08:28) Shortness of Breath nut - unspecified [NUT - UNSPECIFIED] Allergy (Intermediate, Verified 12/12/23 08:28) throat itching HPI HPI PO-Lt Shld 09/25/23 NE-follow up: Details: Alvin is a 58 year old right hand dominant male who presents today for a post operative appointment s/p Left RTC Repair, Biceps Tenotomy and SAD 09/25/23 NE. Patient reports that he is doing well. He has good ROM but the shoulder is still feeling weak.When he does lift he gets a cramping sensation in the bicep. [facility] Medical History PONV (postoperative nausea and vomiting) Environmental allergies Hyperlipidemia Spinal stenosis of lumbar region Lumbar spondylosis Painful arc syndrome of left shoulder Internal derangement of left shoulder Surgical History Hx of colonoscopy History of back surgery S/P arthroscopy of right shoulder Family History Father No problems noted. Mother No problems noted. 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 External rotation 45 degrees Abduction to 90 Forward flexion 130 Negative empty can Negative lift-off Assessment & Plan Assessment & Plan (1) S/P rotator cuff repair: Comment: Left shoulder rotator cuff repair, biceps tenotomy, and SAD 09/25/2023 NE Code(s): Z98.890 - Other specified postprocedural states Category: Surgical Plan: 3 months status post left rotator cuff repair. He is doing very well but still feels weak. Think this is expected and he is overall doing well. I encouraged him to continue light strengthening. He will remain light duty at work and we will see me in 3 months. Coding Level of Care Code Global (12938) Diagnoses S/P rotator cuff repair Z98.890
[2023-12-12 08:26] VITALS: BMI 26.3
== END 2023-12-12 08:56 | disposition home or self-care (01) ==
PROVIDERS: PCP Internal Medicine; Visit Provider Orthopaedic Surgery
DX: Z98.890 Other specified postprocedural states (principal)
CPT/HCPCS: 99024

== ENCOUNTER → 2023-12-12 08:18 | Outpatient (BNVA) | payer OTHER, SELFPAY | PROVIDERS: PCP Internal Medicine; Visit Provider Orthopaedic Surgery ==

== ENCOUNTER 2024-01-24 06:22 | Outpatient (REF) | payer OTHER, SELFPAY ==
[2024-01-24 07:51] LABS: Anion Gap 11 (12-20); Blood Urea Nitrogen 17 mg/dL (9-16); Calcium 9.2 mg/dL (8.4-10.2); Carbon Dioxide 27 mmol/L (22-29); Chloride 106 mmol/L (96-108); Cholesterol 180 mg/dL (<200); Estimated Glomerular Filt Rate > 60; Glucose Random 93 mg/dL (60-115); HDL Cholesterol 66 mg/dL (>40); LDL Cholesterol Calculated 101 mg/dL (<100); Potassium 3.5 mmol/L (3.3-5.1); Sodium 140 mmol/L (135-145); Triglycerides 69 mg/dL (<150)
== END 2024-01-24 06:23 | disposition home or self-care (01) ==
LOC: HO.LAB 06:22
PROVIDERS: PCP Internal Medicine; Visit Provider Family Medicine
DX: E78.00 Pure hypercholesterolemia, unspecified (principal); M25.552 Pain in left hip
CPT/HCPCS: 36415; 80048; 80061

== ENCOUNTER 2024-03-12 08:15 | Outpatient (AMB) | payer OTHER, SELFPAY ==
[2024-03-12 08:18] VITALS: BMI 26.3
--- NOTE | 2024-03-12 08:18 | MHC.OFFVIS ---
Vital Signs 03/12/24 08:18 03/12/24 08:23 Height 5 ft 5 in Weight 158 lb BMI 26.3 26.3 Intake Visit Reasons: OV-Lt Shld 09/25/23 NE-follow up Intake Note: Alvin is a 58 year old right hand dominant male who presents today for a post operative appointment s/p Left RTC Repair, Biceps Tenotomy and SAD 09/25/23 NE. He continues to work on light duty Allergies grass pollen [GRASS POLLEN] Allergy (Severe, Verified 03/12/24 08:21) Shortness of Breath nut - unspecified [NUT - UNSPECIFIED] Allergy (Intermediate, Verified 03/12/24 08:21) throat itching HPI HPI OV-Lt Shld 09/25/23 NE-follow up: Details: Alvin is a 58 year old right hand dominant male who presents today for a post operative appointment s/p Left RTC Repair, Biceps Tenotomy and SAD 09/25/23 NE. He continues to work on light duty. He describes anterior shoulder pain. His abduction is not painful and he feels better than before the surgery but still with some complaints. [facility] Medical History PONV (postoperative nausea and vomiting) Environmental allergies Hyperlipidemia Spinal stenosis of lumbar region Lumbar spondylosis Painful arc syndrome of left shoulder Internal derangement of left shoulder Surgical History Hx of colonoscopy History of back surgery S/P arthroscopy of right shoulder Family History Father No problems noted. Mother No problems noted. 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 He does have vague tenderness about the anterior shoulder and bicipital groove. Negative empty can Assessment & Plan Assessment & Plan (1) S/P rotator cuff repair: Comment: Left shoulder rotator cuff repair, biceps tenotomy, and SAD 09/25/2023 NE Code(s): Z98.890 - Other specified postprocedural states Category: Surgical Plan: Doing well 6 months status post rotator cuff repair. He does have some bicipital cramping. He is status post biceps tenotomy. This is an unusual development after tenotomy and it may be that he is modifying his shoulder function and overusing his biceps. I recommend he try to abstain from overhead lifting and extends excessive overhead work. He expressed understanding and will let me know if it gets worse otherwise he can follow up on a p.r.n. basis. Coding Level of Care Code Est Pt Level 3 (51921) Diagnoses S/P rotator cuff repair Z98.890
--- NOTE | 2024-03-12 08:22 | A.OFFVIS_ITS ---
Vital Signs 03/12/24 08:18 03/12/24 08:23 Height 5 ft 5 in Weight 158 lb BMI 26.3 26.3 Intake Visit Reasons: OV-Lt Shld 09/25/23 NE-follow up Allergies grass pollen [GRASS POLLEN] Allergy (Severe, Verified 03/12/24 08:21) Shortness of Breath nut - unspecified [NUT - UNSPECIFIED] Allergy (Intermediate, Verified 03/12/24 08:21) throat itching HPI HPI OV-Lt Shld 09/25/23 NE-follow up: Details: Doing well and has returned to working. He has started having some anterior shoulder pain and cramping in the morning or with supination/pronation motion. This is different than the pain he had prior to surgery. [facility] Medical History PONV (postoperative nausea and vomiting) Environmental allergies Hyperlipidemia Spinal stenosis of lumbar region Lumbar spondylosis Painful arc syndrome of left shoulder Internal derangement of left shoulder Surgical History Hx of colonoscopy History of back surgery S/P arthroscopy of right shoulder Family History Father No problems noted. Mother No problems noted. 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 Physical Exam Vital Signs: BMI result Body Mass Index 26.3 Extrem Other: Full ROM with mild TTP over anterior biceps neg EC +bogdan deformity Quality Reporting (2019) Adult ([facility] 138/09/19/68) Body Mass Index: 26.3 Assessment & Plan Assessment & Plan (1) S/P rotator cuff repair: Comment: Left shoulder rotator cuff repair, biceps tenotomy, and SAD 09/25/2023 NE Code(s): Z98.890 - Other specified postprocedural states Category: Surgical Plan: Doign well .May continue activity as tolerated (2) Tear of left biceps muscle: Code(s): S46.212A - Strain of muscle, fascia and tendon of other parts of biceps, left arm, initial encounter Category: Medical Plan: Havign some cramping. The cramping should resolve. PT for RTC stabilization if no improvement in cramping. f/u as needed. Coding Level of Care Code Est Pt Level 3 (15357) Diagnoses S/P rotator cuff repair Z98.890 Tear of left biceps muscle S46.212A
[2024-03-12 08:23] VITALS: BMI 26.3
== END 2024-03-12 08:29 | disposition home or self-care (01) ==
PROVIDERS: PCP Internal Medicine; Visit Provider Orthopaedic Surgery
DX: S46.212D Strain of muscle, fascia and tendon of other parts of biceps, left arm, subsequent encounter (principal)
CPT/HCPCS: 99024; 99213

== ENCOUNTER → 2024-03-12 08:15 | Outpatient (BNVA) | payer OTHER, SELFPAY | PROVIDERS: PCP Internal Medicine; Visit Provider Orthopaedic Surgery ==

== ENCOUNTER 2024-09-12 07:27 | Outpatient (REF) | payer OTHER, SELFPAY ==
--- OUTSIDE RECORDS SUMMARY | 2024-09-12 07:29 | XMS_ITS | Encounter Summary ---
Author Organization [employer] Address [address] [place] [address] Care Team Providers Care Artificial Glass Eye Maker Name Role Phone Shelia Saavedra MD Primary Care Provider [phone] Encounter Details Date Type Department Care Team ([facility] st Contact Info) Description 05/15/2023 Orders Only [facility] MED & PEDS [address] [place], [place] [id number] Shelia Saavedra MD [address] [place] [address] Acute pain of left shoulder (Primary Dx) Social History Tobacco Use Types Packs/Day Years Used Date Smoking Tobacco: Never Smokeless Tobacco: Never Depression Answer Date Recorded Patient Health Questionnaire-9 Score 2 04/24/2023 Housing Stability Answer Date Recorded What is your housing situation today? I have higinioshanthi molina 05/15/[address] you li ve. Do you have problems with any of the following? None of the above 05/15/2023 Food Insecurity Answer Date Recorded Within the past 12 months, y ou worried that your food would run out before you got money to buy more: Never True 05/15/2023 Within the past 12 months,th e food you bought just didn't last and you didn't have enough money to get more: Never True Transportation Answer Date Recorded In the past 12 months, has l ack of transportation kept you from medical appts, meetings, work or from getting things needed for daily living? No 05/15/2023 Utilities Answer Date Recorded In the past 12 months, has t he [email or web address], gas, oil or water company threatened to shut off services in your home? No 05/15/2023 Depression Answer Date Recorded Patient Health Questionnaire-2 Score 0 04/24/2023 Sex and Gender Information Value Date Recorded Sex Assigned at Male 05/28/2022 10:17 AM EDT Legal Sex Male 10:17 AM EDT Gender Identity Male 05/28/2022 10:17 AM EDT Sexual Orientation Straight 05/28/2022 10 :17 AM EDT documented as of this encounter Plan of Treatment Upcoming Encounters Date Type Department Care Team (Late st Contact Info) Description 09/21/2024 8:00 AM EST Office Visit [facility] ADULT DENTAL [address] [place] [address] Skyla Thornton [address] [place] [address] 10/09/2024 11:30 AM EDT Clinical Support [facility] MED & PEDS [address] [place] [address] documented as of this encounter Visit Diagnoses Diagnosis Acute pain of left shoulder- Primary documented in this encounter Additional Health Concerns Assessment Noted Time PHQ-9 Depression Total Score: 2 04/24/20 23 10:56 AM EDT documented as of this encounter Care Teams Artificial Glass Eye Maker Relationship Specialty Start Date End Date Shelia Saavedra MD [address] [place] [address] PCP - General Internal Medicine 07/29/18 documented as of this encounter
--- OUTSIDE RECORDS SUMMARY | 2024-09-12 07:29 | XMS_ITS | Encounter Summary ---
Author Organization [employer] [facility] Address [address] [place] [address] [address] [place] [address] Care Team Providers Care Baccarat Manager Name Role Phone Shelia Saavedra MD Primary Care Provider [phone] Encounter Details Date Type Department Care Team (Latest Contact Info) Description 08/04/2019 Abstract [facility] CONVERSIONS Dental, Provider, DDS Social History Tobacco Use Types Packs/Day Years Used Date Smoking Tobacco: Never Assessed Sex and Gender Information Value Date Recorded Sex Assigned at Male 05/28/2022 10:17 AM EDT Legal Sex Male 10:17 AM EDT Gender Identity Male 05/28/2022 10:17 AM EDT Sexual Orientation Straight 05/28/2022 10 :17 AM EDT documented as of this encounter Plan of Treatment Upcoming Encounters Date Type Department Care Team ( st Contact Info) Description 09/21/2024 8:00 AM EST Office Visit [facility] ADULT DENTAL [address] [place] [address] Skyla Thornton [address] [place], [place] 10/09/2024 11:30 AM EDT Clinical Support [facility] MED & PEDS [address] [place], [place] [phone] documented as of this encounter Visit Diagnoses Not on filedocumented in this encounter Care Teams Baccarat Manager Relationship Specialty Start Date End Date Shelia Saavedra MD [address] [place], [place] PCP - General Internal Medicine 07/29/18 documented as of this encounter
--- OUTSIDE RECORDS SUMMARY | 2024-09-12 07:29 | XMS_ITS | Encounter Summary ---
Author Organization [employer] Address [address] [place] [address] Care Team Providers Care Rn Integrity Name Role Phone Shelia Saavedra MD Primary Care Provider [phone] Encounter Details Date Type Department Care Team (Latest Contact Info) Description 09/08/2024 Travel Social History Tobacco Use Types Packs/Day Years Used Date Smoking Tobacco: Never Smokeless Tobacco: Never Alcohol Use Standard Drinks/Week Comments Never 0 (1 standard drink = 0.6 oz pur e alcohol) Alcohol Answer Date Recorded How often do you have a drink containing alcohol ? 1 09/08/2024 How many drinks containing a lcohol do you have on a typical day when you are drinking? 0 09/08/2024 How often do you have six or more drinks on one occasion? 0 09/08/2024 Depression Answer Date Recorded Patient Health Questionnaire-9 Score 0 09/08/2024 Patient Health Questionnaire-9 Score 0 09/08/2024 Last PHQ-9: Questionnaire Data Not on file 0 09/08/2024 Housing Stability Answer Date Recorded What is [...] the past 12 months, has t he electric, gas, oil or water company threatened to shut off services in your home? No 05/15/2023 Depression Answer Date Recorded Patient Health Questionnaire-2 Score 0 09/08/2024 Internet Access Answer Date Recorded Internet Access Q1 Yes 04/15/2024 Internet Access Q2 Not on file 04/15/2024 Sex and Gender Information Value Date Recorded Sex Assigned at Male 05/28/2022 10:17 AM EDT Legal Sex Male 10:17 AM EDT Gender Identity Male 05/28/2022 10:17 AM EDT Sexual Orientation Straight 05/28/2022 10 :17 AM EDT documented as of this encounter Plan of Treatment Upcoming Encounters Date Type Department Care Team ([facility] st Contact Info) Description 09/21/2024 8:00 AM EST Office Visit [facility] ADULT DENTAL [address] [place] [address] Skyla Thornton [address] [place] [address] 10/09/2024 11:30 AM EDT Clinical Support [facility] MED & PEDS [address] [place] [address] documented as of this encounter Visit Diagnoses Not on filedocumented in this encounter Additional Health Concerns Assessment Noted Time PHQ-9 Depression Total Score: 0 09/08/19 25 9:42 AM EST documented as of this encounter Care Teams Rn Integrity Relationship Specialty Start Date End Date Shelia Saavedra MD [address] [place] [address] PCP - General Internal Medicine 07/29/18 documented as of this encounter
--- OUTSIDE RECORDS SUMMARY | 2024-09-12 07:29 | XMS_ITS | Clinical Summary ---
Author Organization [employer] Address [address] [facility] 7[address] [place] [address] Care Team Providers Care Thermoscrew Operator Name Role Phone Shelia Saavedra MD Primary Care Provider [phone] Allergies No known active allergies Medications Diclofenac Sodium 1 % gel Apply topically every 12 (twelve) hours. 2 Active econazole nitrate 1 % cream Apply topically every 12 (twelve) hours. 2 Active fluticasone (Flonase) 50 MCG/ACT nasal spray INHALE 1 SPRAY IN EACH NOSTRIL ONCE DAILY 16 g 3 3 Active naproxen sodium (Anaprox) 550 MG tablet TAKE ONE TABLET BY MOUTH TWICE DAILY NEEDED FOR PAIN 30 tablet 3 3 Active Diclofenac Sodium 1 % gelIndications: Acute pain of left shoulder APPLY 2 GRAM'S TO AFFECTED AREA(s) THREE TIMES DAILY NEEDED 100 g 3 4 Active simvastatin (Zocor) 20 MG tablet TAKE ONE TABLET EVERY DAY 90 tablet 1 4 Active cholecalciferol VITAMIN D (Vitamin D-3) 50 MCG (1999 UT) capsule TAKE ONE CAPSULE DAILY 90 capsule 1 4 Active loratadine (Claritin) 10 MG tabletIndicatio ns:Seasonal allergies TAKE ONE TABLET DAILY 90 tablet 1 4 Active Active Problems Problem Noted Date Diagnosed Date Mixed anxiety depressive disorder 01/23/2024 Pelvic joint pain, left 01/23/2024 Assessment & Plan (01/29/2024 11:22 AM EDT): Poor historian, patient was tangential, normal mood. At this point on physical examination area of interest is his inguinal area, reports prior hx of herniations. 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 Resolved Problems Problem Noted Date Diagnosed Date Resolved Date Migraine 01/24/2023 01/23/2024 Encounters Date Type Department Care Team Description 09/08/2024 9:30 AM EST Office Visit [facility] [address] [place] [address] Shelia Saavedra MD Annual physical exam (Primary Dx); Hypercholesterolemi a; Seasonal allergic rhinitis due to other allergic trigger; Encounter for immunization 09/08/2024 8:00 AM EST Office Visit [facility] ADULT DENT[facility] [address] [place] [address] Skyla Thornton 09/08/2024 Travel 09/01/2024 Patient Outreach [facility] [address] [place] [address] Shelia Saavedra MD Pre-visit Planning (SDOH negative, Tobacco screening negative. ) 08/27/2024 8:00 AM EST Office Visit [facility] ADULT DENT[facility] [address] [place] [address] Evon Dick 07/03/2024 Telephone [facility] [address] [place] [address] Shelia Saavedra MD recall appt from Last 3 Months Immunizations Name Administration Dates Next Due Hep B, adult 09/08/2024 INFLUENZA VACCINE QUADRIVALE NT RECOMBINANT PRESERVATIVE FREE RIV4 04/18/2022,05/02/2020 Influenza Injectable Quadriv alant Preservative Free IIV4 MDCK 05/27/2018 Influenza Whole 07/01/2007 Influenza injectable quadriv alent preservative free 04/24/2023,06/14/2019,05/24/2015 Influenza, IIV3, injectable 05/08/2014 Influenza, seasonal, injecta ble, preservative free 04/22/2024 Pfizer Covid-19 Vaccine 12+ 09/08/2024 Pneumococcal Conjugate PCV 20 09/08/2024 Td (adult), unspecified 06/28/2001 Tdap 12/14/2015 Zoster, Recombinant 01/27/2021,10/01/2019 Family History Medical History Relation Name Comments Diabetes Mother Relation Name Status Comments Mother Social History Tobacco Use Types Packs/Day Years Used Date Smoking Tobacco: Never Smokeless Tobacco: Never Tobacco Cessation:Counseling Given: No Alcohol Use Standard Drinks/Week Comments Never 0 [...] is your housing situation today? I have higinio molina 05/15/[address] you [...] Orientation Straight 05/28/2022 10 :17 AM EDT Last Filed Vital Signs Vital Sign Reading Time Taken Comments Blood Pressure 137/85 09/08/2024 9:17 AM EST Pulse 70 09/08/2024 9:17 AM EST Temperature 36.5 ??C (97.7 ??F) 09/08/2024 9:17 AM ES T Respiratory Rate 20 09/08/2024 9:17 AM EST Oxygen Saturation 98% 09/08/2024 9:17 AM EST Inhaled Oxygen Concentration - - Weight 69.4 kg (153 lb) 09/08/2024 9:17 AM EST Height 167.6 cm (5' 6 ) 09/08/2024 9:17 AM EST Body Mass Index 24.69 09/08/2024 9:17 AM EST Plan of Treatment Upcoming Encounters Date Type Department Care Team (Late st Contact Info) Description 09/21/2024 8:00 AM EST Office Visit [facility] ADULT DENT[facility] [address] [place] [address] Thornton, Harmanpreet [address] [place] [address] 10/09/2024 11:30 AM EDT Clinical Support [facility] [address] [place] [address] Health Maintenance Due Date Last Done Comments CT Colonography 1965 FIT DNA/Cologuard 1965 FIT 1965 FOBT 1965 HIV Screening 1965 Sigmoidoscopy 1965 Hepatitis C Screening 1983 Dental X-Ray: Full Mouth 09/01/2020 018, 03/26/2016, 08/11/2014 Hepatitis B Vaccines (2 of 3 - 19+ 3-dose series) 10/06/2024 09/08/2024 Dental X-Ray: Bitewings 01/03/2025 01/03/20 24, 01/05/2019, 08/31/2017, Additional history exists Dental Oral Exam 02/25/2025 08/27/2024, 01/2020, 01/05/2019, Additional history exists Dental Prophylaxis 02/25/2025 08/27/2024, 0 02/17/2024, 08/04/2019, Additional history exists Alcohol/Substance Use Screening 09/08/2025 09/08/2024 Depression Screening 09/08/2025 09/08/2024, 09/08/19 SDOH Screening 09/08/2025 09/08/2024 Tobacco Screening 09/08/2025 09/08/2024 DTaP/Tdap/Td Vaccines (2 - Td or Tdap) 12/13/2025 12/14/2015, 06/28/2001 Colonoscopy 04/16/2026 04/16/2016 Colorectal Cancer Screening 04/16/2026 Lipid Panel 01/23/2029 01/24/2024, 03/30, 03/27/2022, Additional history exists RSV Patients and Patients Aged 60 years or older (1 - 1-dose 75+ series) 2040 Zoster Vaccines Completed 01/27/2021, 10/01/2019 Influenza Vaccine Completed 04/22/2024, , 04/18/2022, Additional history exists COVID-19 Vaccine Completed 09/08/2024, 02/2023, 11/05/2022, Additional history exists Pneumococcal Vaccine: 50+ Years Completed 09/08/2024 HIB Vaccines Aged Out No longer eligi ble based on patient's age to complete this topic HPV Vaccines Aged Out No longer eligi ble based on patient's age to complete this topic Hepatitis A Vaccines Aged Out No long er eligible based on patient's age to complete this topic IPV Vaccines Aged Out No longer eligi ble based on patient's age to complete this topic Meningococcal Vaccine Aged Out No cruz ruby eligible based on patient's age to complete this topic RSV under 20 months Aged Out No longe r eligible based on patient's age to complete this topic Rotavirus Vaccines Aged Out No longer eligible based on patient's age to complete this topic Procedures Procedure Name Priority Date/Time Associated Diagnosis Comments CASE PRESENTATION, DETAILED AND EXTENSIVE TREATMENT PLANNING Routine 09/08/2024 8:00 AM EST 9 MIFL RESIN-BASED COMPOSITE - 4 OR MORE SURFACES (ANTERIOR) Routine 09/08/2024 8:00 AM EST 8 MIFL RESIN-BASED COMPOSITE - 4 OR MORE SURFACES (ANTERIOR) Routine 09/08/2024 8:00 AM EST PERIODIC ORAL EVALUATION - ESTABLISHED PATIENT Routine 08/27/2024 8:00 AM EST CASE PRESENTATION, DETAILED AND EXTENSIVE TREATMENT PLANNING Routine 08/27/2024 8:00 AM EST ORAL HYGIENE INSTRUCTIONS Routine 08/27/2024 8:00 AM EST PROPHYLAXIS - ADULT Routine 08/27/2024 8 :00 AM EST LIPID PANEL, STANDARD Routine 01/24/2024 6:39 AM EDT Hypercholesterolemi a BITEWING - SINGLE RADIOGRAPHIC IMAGE Routine 01/03/2024 2:30 PM EDT INTRAORAL - COMPLETE SERIES OF RADIOGRAPHIC IMAGES Routine 08/31/2017 12:00 AM EST COLONOSCOPY Routine 04/16/2016 from Last 3 Months or Most Recently Relevant to Health Maintenance Results * (ABNORMAL) Lipid Panel, Standard (01/24/2024 6:39 AM EDT) Triglycerides 69 <150 mg/dL [facility] Comment:Desirable Triglyceri de: less than 150 mg/dLBorderline High Triglyceride 150-199 mg/dLHigh Triglyceride: 200-499 mg/dLVery High Triglyceride: greater than or equal to 5OO mg/dL Cholesterol 180 <200 mg/dL [facility] Comment:Desirable Cholestero l: less than 200 mg/dLBorderline High Cholesterol: 200-239 mg/dLHigh Cholesterol: greater than 239 mg/dL LDL Cholesterol Calculated 101(H) <100 mg/dL [facility] Comment:Desirable LDL: less than 100 mg/dLNear Optimal/Above Optimal LDL: 110- 129 mg/dLBorderline High LDL: 130-159 mg/dLHigh LDL: 160-189 mg/dLVery High LDL: greater than or equal to 190 mg/dL HDL Cholesterol 66 >40 mg/dL [facility] Comment:Desirable HDL: great er than 40 mg/dL Note: This HDL assay may give artificially low results in patients with liver disease. Blood Venous blood specimen / Unknown 01/24/2024 6:39 AM EDT 01/24/2024 6:39 AM EDT us Kiera Velazquez MD LAB BLOOD ORDERABLES Final Re sult [facility] [address] [place] [address] [phone] * Colonoscopy (04/16/2016) Anatomical Region Laterality Modality Endoscopy Narrative 04/16/2016 Normal colonoscopy us Shelia Saavedra MD ENDOSCOPY PROCEDURE ORDERAB LES Final Result from Last 3 Months or Most Recently Relevant to Health Maintenance Insurance [facility] [address] [place] [address] DENTAL - [employer] PARTIAL (MEDICAID) Care Teams Thermoscrew Operator Relationship Specialty Start Date End Date Shelia Saavedra MD [address] [place], [place] [address] [address] PCP - General Internal Medicine 07/29/18
--- OUTSIDE RECORDS SUMMARY | 2024-09-12 07:29 | XMS_ITS | Encounter Summary ---
Author Organization [employer] Address [address] [facility] [address] [place] [address] Care Team Providers Care Operations Processor Name Role Phone Shelia Saavedra MD Primary Care Provider [phone] Encounter Details Date Type Department Care Team (Late st Contact Info) Description 05/24/2023 Abstract [facility] [address] [place] [address] Shelia Saavedra MD [address] [place], [place] [address] Social History Tobacco Use Types Packs/Day Years [...] Description 09/21/2024 8:00 AM EST Office Visit [facility] ADULT DENT[facility] [address] [place] [address] Skyla Thornton [address] [place] [address] 10/09/2024 11:30 AM EDT Clinical Support [facility] [address] [place] [address] Scheduled Orders Name Type Priority Associated Diagnoses Orde r Schedule Johnathan Johnathan [employer] GENERAL SERVICES - MISCELLANEOUS SERVICES - OCCLUSAL GUARD - HARD APPLIANCE, FULL ARCH Dental Routine 1 Occurren thuan starting 08/27/2024 documented as of this encounter Visit Diagnoses Not on filedocumented in this encounter Additional Health Concerns Assessment Noted Time PHQ-9 Depression Total Score: 2 04/24/20 23 10:56 AM EDT documented as of this encounter Care Teams Operations Processor Relationship Specialty Start Date End Date Shelia Saavedra MD [address] [place] [address] PCP - General Internal Medicine 07/29/18 documented as of this encounter
--- OUTSIDE RECORDS SUMMARY | 2024-09-12 07:29 | XMS_ITS | Encounter Summary ---
Author Organization [employer] Address [address] [facility] 7 [place] [address] Care Team Providers Care Product Development Director Name Role Phone Shelia Saavedra MD Primary Care Provider [phone] Reason for Visit * Reason Onset Date Comments Nurse Triage 01/17/2023 Encounter Details Date Type Department Care Team (Late st Contact Info) Description 01/17/2023 Telephone [facility] [address] [place] [address] Shelia Saavedra MD [address] [place], [place] [phone] Nurse Triage Social History Tobacco Use Types Packs/Day Years [...] t he electric, gas, oil or water [employer] threatened to shut off services in your home? No 05/15/2023 Depression Answer Date Recorded Patient Health Questionnaire-2 Score 0 04/24/2023 Internet Access Answer Date Recorded Internet Access Q1 Yes 04/15/2024 Internet Access Q2 Not on file 04/15/2024 Sex and Gender Information Value Date Recorded Sex Assigned at Male 05/28/2022 10:17 AM EDT Legal Sex Male 10:17 AM EDT Gender Identity Male 05/28/2022 10:17 AM EDT Sexual Orientation Straight 05/28/2022 10 :17 AM EDT COVID-19 Exposure Response Date Recorded In the last 10 days, have yo u been in contact with someone who was confirmed or suspected to have Coronavirus/COVID-19? No / Unsure 01/24/2023 3:37 PM EDT documented as of this encounter Miscellaneous Notes * Telephone Encounter - Monse Ballesteros RN - 01/17/2023 11:33 AM EDT Triage call Pt reports left hip pain. Pt reports pain goes away when active but, when sitting or laying down and first thing in the morning pain is there. Pt reports it is a pinching pain and radiates to left leg and sometimes to right. Pt is taking naprosyn for this and it helps. Pt is requesting to speak to provider regarding this pain in terms of having hx of back surgery and what can be done now. Apt with Dr. Saavedra 01/24/23 @ 345pm. Insurance is verified as active prior to booking. Protocol Used: Hip Pain (Adult) Protocol-Based Disposition: See in Office or Video Visit within 2 Weeks Video visit not offered Positive Triage Question: * Hip pain is a chronic symptom (recurrent or ongoing AND present > 4 weeks) * All higher-acuity triage questions were negative Care Advice Discussed: * Reassurance and Education - Hip Pain * Pain Medicines * Pain Medicines - Extra Notes and Warnings * Rest Your Hip for the Next Couple Days * Reasons To Call Back - Moderate pain (e.g., limping) lasts more than 3 days - Mild pain lasts more than 7 days - Signs of infection occur (e.g., spreading redness, warmth, fever) - You become worse * Use a Cold Pack for Pain * Use Heat on Area After 48 Hours * Telephone Encounter - Fely Tobiasjia - 01/17/2023 11:01 AM EDT Symptom: Hip Pain - Not From Injury Outcome: Schedule an urgent appointment (within 1 hour) or talk to a nurse or provider soon Reason: Severe pain now, leg pain The caller accepted this outcome Please contact at [phone] Persian documented in this encounter Plan of Treatment Upcoming Encounters Date Type Department Care Team (Late st Contact Info) Description 09/21/2024 8:00 AM EST Office Visit [facility] ADULT DENTAL [address] [place] [address] Jason Thorntondilia [address] [place] [address] 10/09/2024 11:30 AM EDT Clinical Support [facility] [address] [place] [address] documented as of this encounter Visit Diagnoses Not on filedocumented in this encounter Additional Health Concerns Assessment Noted Time PHQ-9 Depression Total Score: 0 08/14/19 23 2:08 PM EST documented as of this encounter Care Teams Product Development Director Relationship Specialty Start Date End Date Shelia Saavedra MD [address] [place] [address] PCP - General Internal Medicine 07/29/18 documented as of this encounter
--- OUTSIDE RECORDS SUMMARY | 2024-09-12 07:29 | XMS_ITS | Encounter Summary ---
Author Organization [employer] Address [address] [facility] 7t [place] [address] Care Team Providers Care Fryline Attendant Name Role Phone Shelia Saavedra MD Primary Care Provider [phone] Reason for Visit * Reason Comments Filling #8, #9 Encounter Details Date Type Department Care Team ([facility] Contact Info) Description 09/08/2024 8:00 AM EST Office Visit [facility] ADULT DENT[facility] [address] [place] [address] Skyla Thornton [address] [place] [address] Social History Tobacco Use Types Packs/Day Years [...] the past 12 months, has t he [employer], gas, oil or water company threatened to [...] AM EDT documented as of this encounter Progress Notes * Skyla Thornton - 09/08/2024 8:00 AM EST Patient ID: [place] Rg is a 59 y.o. male. Time Out: Timeout Date: 09/08/24 (anabaptism #8, #9), Timeout Time: 0807 Location: [facility] Tooth: #8 and #9 Procedure: Catholic Verified the above with patient, academic affairs assistant, and provider. Confirmed via patient's chart, intraorally and by radiographs. Usability Engineer: not applicable Chief Complaint Patient presents with Filling #8, #9 Medical Hx: Vitals: There were no vitals taken for this visit. Medications, Med Hx reviewed with patient and updated in chart. Consent Obtained: The risks, benefits, indications, potential complications, and alternatives were explained to the patient and informed consent was obtained with good understanding. Treatment Provided: Dental procedures in this visit [id number] - RESIN-BASED COMPOSITE - 4 OR MORE SURFACES (ANTERIOR) 8 MIFL (Completed) Service provider: Skyla Thornton Billing provider: Skyla Thornton [id number] - RESIN-BASED COMPOSITE - 4 OR MORE SURFACES (ANTERIOR) 9 MIFL (Completed) Service provider: Skyla Thornton Billing provider: Skyla Thornton [id number] - ADJUNCTIVE GENERAL SERVICES - PROFESSIONAL VISITS - CASE PRESENTATION, SUBSEQUENT TO DETAILED AND EXTENSIVE TREATMENT PLANNING (Completed) Service provider: Skyla Thornton Billing provider: Skyla Thornton Diagnosis: fractured/missing existing restorations #8, #9 Topical: 20% Benzocaine Anesthesia: 4% Septocaine (Articaine) w/ 1:200,000 epinephrine Number of Cartridges: 1 Injection Type: Buccal infiltration and Nasopalatine nerve block Confirmed profound anesthesia. Isolation: high speed suction and cotton rolls Prep: All caries removed, Existing anabaptism removed, and Preparation finalized Matrix: Mylar Strip and wedge Etch: 37% Phosphoric Acid Etch Desensitizer: Gluma Liner/Base: LimeLite Swift: I-Swift Catholic Material: Voco Grandioso Packable Shade: A3 Polished. Occlusion & contacts verified. Patient satisfied with comfort and esthetics (shown with patient mirror and pt was very happy). Patient tolerated procedure well. Post-operative instructions were given. Patient departed alert, oriented, and in stable condition. NOTE- Pt is a bruxer and is aware of that. Pt was informed that restorations done today are prone to fracture and pt needs to follow POI including avoiding biting anything hard, crunchy, chewy or sticky food. Pt understood and agreed. All questions answered. NOTE- Pt declined occlusal guard that was treatment planned and instead wanted to get an OTC occlusal guard. Pt was informed that if pt decides to get one from in-office, pt should inform me as its very important and pt is aware of consequences of not getting one including fracture of existing restorations / done in-office and damage to rest of the dentition eventually possibly leading to loss oftooth in future. Pt understood and agreed. All questions answered. NV: restorative Nylon Hot Wire Cutter: Carlotta Shelby and student AMANDA Feng Dentist: Dr. Skyla Thornton, DMD documented in this encounter Plan of Treatment Upcoming Encounters Date Type Department Care Team (Late st Contact Info) Description 09/21/2024 8:00 AM EST Office Visit [facility] ADULT DENTAL [address] [facility] [place] [address] Skyla Thornton [address] [place] [address] 10/09/2024 11:30 AM EDT Clinical Support [facility] [address] [place] [address] documented as of this encounter Procedures Procedure Name Priority Date/Time Associated Diagnosis Comments 9 MIFL RESIN-BASED COMPOSITE - 4 OR MORE SURFACES (ANTERIOR) Routine 09/08/2024 8:00 AM EST 8 MIFL RESIN-BASED COMPOSITE - 4 OR MORE SURFACES (ANTERIOR) Routine 09/08/2024 8:00 AM EST CASE PRESENTATION, DETAILED AND EXTENSIVE TREATMENT PLANNING Routine 09/08/2024 8:00 AM EST documented in this encounter Visit Diagnoses Not on filedocumented in this encounter Additional Health Concerns Assessment Noted Time PHQ-9 Depression Total Score: 0 09/08/19 25 9:42 AM EST documented as of this encounter Care Teams Fryline Attendant Relationship Specialty Start Date End Date Shelia Saavedra MD [address] [place] [address] PCP - General Internal Medicine 07/29/18 documented as of this encounter
--- OUTSIDE RECORDS SUMMARY | 2024-09-12 07:29 | XMS_ITS | Encounter Summary ---
Author Organization [employer] Address [address] [facility] [address] [place] [address] Care Team Providers Care Health Physicist Name Role Phone Shelia Saavedra MD Primary Care Provider [phone] Reason for Visit * Reason Comments Pre-visit Planning SDOH negative, Tobac co screening negative. Encounter Details Date Type Department Care Team ([facility] Contact Info) Description 09/01/2024 Patient Outreach [facility] [address] [place], [place] [phone] Shelia Saavedra MD [address] [place] [address] Pre-visit Planning (SDOH negative, Tobacco screening negative. ) Social History Tobacco Use Types Packs/Day Years Used Date Smoking Tobacco: Never Smokeless Tobacco: Never Alcohol Use Standard Drinks/Week Comments Never 0 (1 standard drink = 0.6 oz pur e alcohol) Depression Answer Date Recorded Patient Health Questionnaire-9 [...] as of this encounter Progress Notes * Jazmine Sheehan - 09/01/2024 4:09 PM EST CC Jazmine Kc placed successful outbound call to patient for pre-visit planning. Patient name and confirmed. Patient confirms appt date and time, and has transportation arrangements. Biggest concern for appointment at this time is no concerns. Appropriate screenings completed in anticipation ofappointment. documented in this encounter Plan of Treatment Upcoming Encounters Date Type Department Care Team ([facility] st Contact Info) Description 09/21/2024 8:00 AM EST Office Visit [facility] ADULT DENTAL [address] [place] [address] Skyla Thornton [address] [place] [address] 10/09/2024 11:30 AM EDT Clinical Support [facility] MED [facility] PED[facility] [address] [place] [address] documented as of this encounter Visit Diagnoses Not on filedocumented in this encounter Additional Health Concerns Assessment Noted Time PHQ-9 Depression Total Score: 2 04/24/20 23 10:56 AM EDT documented as of this encounter Care Teams Health Physicist Relationship Specialty Start Date End Date Shelia Saavedra MD [address] [place] [address] PCP - General Internal Medicine 07/29/18 documented as of this encounter
--- OUTSIDE RECORDS SUMMARY | 2024-09-12 07:29 | XMS_ITS | Encounter Summary ---
Author Organization [email or web address] Address [address] [place] [address] Care Team Providers Care Cut Off Saw Operator Name Role Phone Shelia Saavedra MD Primary Care Provider [phone] Reason for Visit * Reason Comments Filling #8, #9 Encounter Details Date Type Department Care Team ([facility] st Contact Info) Description 03/04/2024 8:00 AM EDT Office Visit [facility] ADULT DENTAL [address] [place] [address] Maile Samaniego BDS Dental caries (Primary Dx) Social History Tobacco Use Types [...] AM EDT documented as of this encounter Last Filed Vital Signs Vital Sign Reading Time Taken Comments Blood Pressure 118/75 03/04/2024 8:14 AM EDT Pulse - - Temperature - - Respiratory Rate - - Oxygen Saturation - - Inhaled Oxygen Concentration - - Weight - - Height - - Body Mass Index - - documented in this encounter Progress Notes * Maile Samaniego BDS - 03/04/2024 8:00 AM EDT Dental procedures in this visit D2331 - RESIN-BASED COMPOSITE - 2 SURFACES, ANTERIOR 9 ML (Completed) Service provider: Maile Samaniego BDS Billing provider: Maile Samaniego BDS D2335 - RESIN-BASED COMPOSITE - 4 OR MORE SURFACES (ANTERIOR) 8 MIL (Completed) Service provider: Maile Samaniego BDS Billing provider: Maile Samaniego BDS D9450 - CASE PRESENTATION, DETAILED AND EXTENSIVE TREATMENT PLANNING (Completed) Service provider: Maile Samaniego BDS Billing provider: Maile Samaniego BDS Patient ID: Cuba Rg is a 58 y.o. male. Time Out: Date: 03/04/2024 Location: [facility] Tooth: #8 and #9 Procedure: Confucianist Verified the above with patient, it assistant, and provider. Confirmed via patient's chart, intraorally and by radiographs. Assembly Machine Tender: not applicable Composite anglican done on # 8 [address] #[address] Maile Samaniego BDS Risk, benefits, and alternatives discussed with the patient. CONSENT FORM INITIALED & SIGNED BY THE PATIENT AND COUNTERSIGNED BY Dr. Maile Samaniego BDS Medical history: Reviewed in EHR Vitals: Blood pressure 118/75. Allergies: Reviewed in EHR Medications: Reviewed in EHR ASA II - LA: 20% topical benzocaine; local infiltration with 1 carpule 2% lidocaine 1:100,000 epinephrine - Existing anglican and recurrent decay removed - Mylar strip and wedge used as needed - Desensitizer: Gluma - Dycal: none - Base: Filtek supreme flowable composite, shade A 3 - Etching done using 37% phosphoric acid. - reception agent applied. - Composite anglican done using Filtek body composite, shade A 3 - Anatomy and margins adjusted - Proximal contact confirmed with floss. - Occlusion checked with articulating paper - Necessary reductions made. - Confucianist smoothed and polished. - Post op instructions given Discussion: Pt has been advised to get a FCC on #14 by previous provider. I also advised FCC on #14 due to broken mesio-palatal cusp. Pt elected to hold off for #14 for now. Pt will reach out to the front end wheel loader operator for #14 restorative Tx when he is ready. Pt understands #14 palatal cusp can be broken completely if it is not restored and can cause pain/discomfort. All questions answered. Patient was satisfied, left in stable condition Patient was made aware possible post op sensitivity NV: Confucianist # 14 Provider: Dr. Maile Samaniego BDS Emt I/85: Carlotta Shelby documented in this encounter Plan of Treatment Upcoming Encounters Date Type Department Care Team (Late st Contact Info) Description 09/21/2024 8:00 AM EST Office Visit [facility] ADULT D[facility]AL [address] [place] [address] Skyla Thornton [address] [place] [address] 10/09/2024 11:30 AM EDT Clinical Support [facility] P[facility] [address] [place] [address] documented as of this encounter Procedures Procedure Name Priority Date/Time Associated Diagnosis Comments 8 MIL RESIN-BASED COMPOSITE - 3 SURF, ANTERIOR Routine 03/04/2024 8:00 AM EDT 9 ML RESIN-BASED COMPOSITE - 2 SURF, ANTERIOR Routine 03/04/2024 8:00 AM EDT CASE PRESENTATION, DETAILED AND EXTENSIVE TREATMENT PLANNING Routine 03/04/2024 8:00 AM EDT documented in this encounter Visit Diagnoses Diagnosis Dental caries- Primary Unspecified dental caries documented in this encounter Additional Health Concerns Assessment Noted Time PHQ-9 Depression Total Score: 2 04/24/20 23 10:56 AM EDT documented as of this encounter Care Teams Cut Off Saw Operator Relationship Specialty Start Date End Date Shelia Saavedra MD [address] [place] [id number] PCP - General Internal Medicine 07/29/18 documented as of this encounter
--- OUTSIDE RECORDS SUMMARY | 2024-09-12 07:29 | XMS_ITS | Encounter Summary ---
Author Organization [employer] Address [address] [place] [address] Care Team Providers Care Marine Resource Economist Name Role Phone Shelia Saavedra MD Primary Care Provider [phone] Reason for Visit * Reason Comments Routine Cleaning Dental Exam Encounter Details Date Type Department Care Team ([facility] st Contact Info) Description 08/27/2024 8:00 AM EST Office Visit [facility] CHC ADULT DENTAL [address] [place] [address] Evon Dick Social History Tobacco Use Types Packs/Day Years [...] Sign Reading Time Taken Comments Blood Pressure 132/86 08/27/2024 8:03 AM EST Pulse - - Temperature - - Respiratory Rate - - Oxygen Saturation - - Inhaled Oxygen Concentration - - Weight - - Height - - Body Mass Index - - documented in this encounter Progress Notes * Evon Dick - 08/27/2024 8:00 AM EST Patient ID: Cuba Rg is a 59 y.o. male. Time Out: Timeout Date: 08/27/24, Timeout Time: 803 Location: [facility] Tooth: Maxilla and Mandible Procedure: Exam and Prophylaxis Verified the above with patient, catering assistant, and provider. Confirmed via patient's chart, intraorally and by radiographs. Head Baker: not applicable Medical Hx: Vitals: Blood pressure 132/86. Medications, Med Hx reviewed with patient and updated in chart. Treatment Provided Dental procedures in this visit D1110 - PROPHYLAXIS - ADULT (Completed) Service provider: Evon Corley provider: Skyla Thornton D1330 - ORAL HYGIENE INSTRUCTIONS (Completed) Service provider: Evon Corley provider: Skyla Thornton [id number] - ADJUNCTIVE GENERAL SERVICES - PROFESSIONAL VISITS - CASE PRESENTATION, SUBSEQUENT TO DETAILED AND EXTENSIVE TREATMENT PLANNING (Completed) Service provider: Evon Corley provider: Skyla Thornton Instruments Used: Ultrasonic Scalers, Hand Scalers, and Prophy angle Fluoride: N/A Oral Cancer Screening: No lesions Head/Neck Exam: No Lesions Calculus: Light and Generalized Plaque: Light and Generalized Stain: Light and Localized Bleeding: Light and Localized Gingiva: Healthy OH: Good Perio Chart: Not Completed- Completed on 02/17/2024. Dental exam done by Dr. Thornton. Oral hygiene instructions provided to patient including brushing technique and flossing. Recommendations: Lyons two times daily, modified rader technique, Floss daily, Electric toothbrush, Soft bristle toothbrush, Lyons Tongue, Anti-sensitivity toothpaste Recall Frequency: 6 mo NV: Restorations Hygienist: Evon Dick RDH * Skyla Thornton - 08/27/2024 8:00 AM EST Images from the original note were not included. Dental procedures in this visit D1110 - PROPHYLAXIS - ADULT (Completed) Service provider: Evon Dick Billcarly provider: Skyla Thornton D1330 - ORAL HYGIENE INSTRUCTIONS (Completed) Service provider: Evon Corley provider: Skyla Thornton D9450 - ADJUNCTIVE GENERAL SERVICES - PROFESSIONAL VISITS - CASE PRESENTATION, SUBSEQUENT TO DETAILED AND EXTENSIVE TREATMENT PLANNING (Completed) Service provider: Evon Corley provider: Skyla Thornton D0120 - PERIODIC ORAL EVALUATION - ESTABLISHED PATIENT (Completed) Service provider: Skyla Thornton Billcarly provider: Skyla Thornton Patient ID: Cuba Rg is a 59 y.o. male. Time Out: Timeout Date: 08/27/24, Timeout Time: 08 Location: [facility] Tooth: Maxilla and Mandible Procedure: Exam Verified the above with patient, catering assistant, and provider. Confirmed via patient's chart, intraorally and by radiographs. Head Baker: not applicable Chief Complaint Patient presents with Routine Cleaning Dental Exam Medical Hx: Vitals: Blood pressure 132/86. Past Medical History: Diagnosis Date High cholesterol Rotator cuff arthropathy of left shoulder Medications: Outpatient Encounter Medications as of 08/27/2024 Medication Sig Dispense Refill cholecalciferol VITAMIN D (Vitamin D-3) 50 MCG (1999 UT) capsule TAKE ONE CAPSULE DAILY 90 capsule 1 Diclofenac Sodium 1 % gel APPLY 2 GRAM'S TO AFFECTED AREA(s) THREE TIMES DAILY NEEDED 100 g 3 fluticasone (Flonase) 50 MCG/ACT nasal spray INHALE 1 SPRAY IN EACH NOSTRIL ONCE DAILY 16 g 3 loratadine (Claritin) 10 MG tablet TAKE ONE TABLET DAILY 90 tablet 1 naproxen sodium (Anaprox) 550 MG tablet TAKE ONE TABLET BY MOUTH TWICE DAILY NEEDED FOR PAIN 30 tablet 3 simvastatin (Zocor) 20 MG tablet TAKE ONE TABLET EVERY DAY 90 tablet 1 Diclofenac Sodium 1 % gel Apply topically every 12 (twelve) hours. (Patient not taking: Reported on08/27/2024) econazole nitrate 1 % cream Apply topically every 12 (twelve) hours. (Patient not taking: Reported on 08/27/2024) No facility-administered encounter medications on file as of 08/27/2024. 59 y/o male presents for an exam seen by Dr. Skyla Thornton, BART. Chief Complaint: My upper front tooth fillings broke but I have no pain Medical History: Patient does not report any changes in health issues that could alter the Treatment Plan. Medical consult / medical clearance needed: None KOBUK: Pain: no Duration: n/a Scale of pain from 1-10 = n/a Pain radiating: n/a Postural variation: n/a Allergies: Reviewed in EHR Medications: Reviewed in EHR Radiographs X-rays taken today: none taken today Discussion: -Pt stated that pt's upper front tooth broke but has no pain/sensitivity to cold/hot/sweet/spicy foods/beverages. -Pt stated that there is no pain but only sensitivity to cold as stated by pt. -Reviewed radiographs with pt. -Percussion -ve, palpation -ve, endo ice test - normal response -Upon exam, pt has generalized attrition evident. Pt is aware that pt is a bruxer. -Pt was advised occlusal guard otherwise fillings might keep fracture again and pt has a history ofgetting them done as pt mentioned that pt got them done 2 times in [place] as well in the past along with done in-office in 2023 as well. -Restorations planned as charted. -pt was informed to contact front office representative about sliding fee for occlusal guard. -Pt understood and agreed. -OHI reviewed. Emphasis was laid on maintaining good oral hygiene regimen at home along with regular visits to dentist. -Pt understood, was satisfied with our conversation and agreed with tx plan; dismissed in good condition. -All questions answered. Soft tissue exam: WNL; OCS- negative Head and neck exam: Lymph Nodes, Lips, Palate, Buccal Mucosa, Floor of Mouth, Tongue, Tonsils, Alveolar Ridges, Oropharynx, Salivary Ducts, Vestibules - no abnormal findings. TMJ/Occlusal - TMJ is within normal limits. Oral Cancer Risk - low Oral Hygiene Instruction Provided - Yes Oral Hygiene Instructions: Lyons two times daily, modified rader technique, Floss daily, Electric toothbrush, Soft bristle toothbrush, Lyons Tongue. Referrals - None Treatment plan: -Restorative -Comprehensive exam All questions answered and expressed understanding. Dismissed in good condition. NV: Restorative Hygienist: Evon Dick Dentist: Dr. Skyla Thornton, DMD documented in this encounter Plan of Treatment Upcoming Encounters Date Type Department Care Team (Late st Contact Info) Description 09/21/2024 8:00 AM EST Office Visit [facility] [address] [place] [address] Skyla Thornton [address] [place] [address] 10/09/2024 11:30 AM EDT Clinical Support [facility] [address] [place] [address] Scheduled Orders Name Type Priority Associated Diagnoses Orde r Schedule 7 DEN 7 DEN RESTORATIVE - RESIN-BASED COMPOSITE RESTORATIONS - DIRECT - RESIN-BASED COMPOSITE - THREE SURFACES, ANTERIOR Dental Routine 1 Occu rrences starting 08/27/2024 NIGHTGUARD IMPRESSION Dental Routine 1 O ccurrences starting 08/27/2024 2 O 2 O RESTORATIVE - RESIN-BASED COMPOSITE RESTORATIONS - DIRECT - RESIN-BASED COMPOSITE - ONE SURFACE, POSTERIOR Dental Routine 1 Occurr ences starting 09/08/2024 29 DO 29 DO RESTORATIVE - RESIN-BASED COMPOSITE RESTORATIONS - DIRECT - RESIN-BASED COMPOSITE - TWO SURFACES, POSTERIOR Dental Routine 1 Occur rences starting 09/08/2024 documented as of this encounter Procedures Procedure Name Priority Date/Time Associated Diagnosis Comments PROPHYLAXIS - ADULT Routine 08/27/2024 8 :00 AM EST PERIODIC ORAL EVALUATION - ESTABLISHED PATIENT Routine 08/27/2024 8:00 AM EST ORAL HYGIENE INSTRUCTIONS Routine 01/30/ 2025 8:00 AM EST CASE PRESENTATION, DETAILED AND EXTENSIVE TREATMENT PLANNING Routine 08/27/2024 8:00 AM EST documented in this encounter Visit Diagnoses Not on filedocumented in this encounter Additional Health Concerns Assessment Noted Time PHQ-9 Depression Total Score: 2 04/24/20 23 10:56 AM EDT documented as of this encounter Care Teams Marine Resource Economist Relationship Specialty Start Date End Date Shelia Saavedra MD [address] [place] [id number] PCP - General Internal Medicine 07/29/18 documented as of this encounter
--- OUTSIDE RECORDS SUMMARY | 2024-09-12 07:29 | XMS_ITS | Encounter Summary ---
Author Organization [employer] Address [address] [facility] [address] [address] [facility] [address] [place] [address] Care Team Providers Care Tire Buster Name Role Phone Shelia Saavedra MD Primary Care Provider [phone] Reason for Visit * Reason Comments Annual Exam Encounter Details Date Type Department Care Team ([facility] Contact Info) Description 09/08/2024 9:30 AM EST Office Visit [facility] [address] [place], [place] [id number] Shelia Saavedra MD [address] [place] [address] Annual physical exam (Primary Dx); Hypercholesterolemia; Seasonal allergic rhinitis due to other allergic trigger; Encounter for immunization Social History Tobacco Use Types Packs/Day Years [...] Mass Index 24.69 09/08/2024 9:17 AM EST documented in this encounter Progress Notes * Shelia Saavedra MD - 09/08/2024 9:30 AM EST Subjective Patient ID: Cuba Rg is a 59 y.o. male who presents for Annual Exam. HPI Pt is feeling overall well. Denies any acute event since the last visit. Patient Active Problem List Diagnosis Hypercholesterolemia Allergic rhinitis Mixed anxiety depressive disorder Central serous chorioretinopathy Pelvic joint pain, left Current Outpatient Medications on File Prior to Visit Medication Sig Dispense Refill cholecalciferol VITAMIN D (Vitamin D-3) 50 MCG (1999) capsule TAKE ONE CAPSULE DAILY 90 capsule 1 Diclofenac Sodium 1 % gel Apply topically every 12 (twelve) hours. (Patient not taking: Reported on08/27/2024) Diclofenac Sodium 1 % gel APPLY 2 GRAM'S TO AFFECTED AREA(s) THREE TIMES DAILY NEEDED 100 g 3 econazole nitrate 1 % cream Apply topically every 12 (twelve) hours. (Patient not taking: Reported on 08/27/2024) fluticasone (Flonase) 50 MCG/ACT nasal spray INHALE 1 SPRAY IN EACH NOSTRIL ONCE DAILY 16 g 3 loratadine (Claritin) 10 MG tablet TAKE ONE TABLET DAILY 90 tablet 1 naproxen sodium (Anaprox) 550 MG tablet TAKE ONE TABLET BY MOUTH TWICE DAILY NEEDED FOR PAIN 30 tablet 3 simvastatin (Zocor) 20 MG tablet TAKE ONE TABLET EVERY DAY 90 tablet 1 No current facility-administered medications on file prior to visit. Review of Systems Constitutional: Negative for activity change, appetite change, chills and diaphoresis. HENT: Negative for dental problem, drooling and ear discharge. Eyes: Negative for pain and itching. Respiratory: Negative for cough, choking and chest tightness. Cardiovascular: Negative for palpitations and leg swelling. Gastrointestinal: Negative for abdominal pain, anal bleeding and blood in stool. Endocrine: Negative for cold intolerance and heat intolerance. Genitourinary: Negative for flank pain, frequency and genital sores. Musculoskeletal: Negative for back pain. Neurological: Negative for light-headedness, numbness and headaches. Psychiatric/Behavioral: Negative for agitation, confusion and decreased concentration. Objective BP 137/85 (BP Location: Left arm, Patient Position: Sitting, BP Cuff Size: Adult) Pulse 70 Temp97.7 ??F (36.5 ??C) (Oral) Resp 20 Ht 5' 6 (1.676 m) Wt 153 lb (69.4 kg) SpO2 98% BMI 24.69 kg/m?? Physical Exam Constitutional: General: He is not in acute distress. Appearance: Normal appearance. He is obese. He is not ill-appearing, toxic- appearing or diaphoretic. HENT: Head: Normocephalic. Right Ear: Tympanic membrane normal. Left Ear: Tympanic membrane normal. Nose: Nose normal. Eyes: General: No scleral icterus. Right eye: No discharge. Left eye: No discharge. Pupils: Pupils are equal, round, and reactive to light. Cardiovascular: Rate and Rhythm: Normal rate and regular rhythm. Heart sounds: No murmur heard. No friction rub. No gallop. Pulmonary: Effort: Pulmonary effort is normal. No respiratory distress. Breath sounds: Normal breath sounds. No stridor. No wheezing, rhonchi or rales. Chest: Chest wall: No tenderness. Abdominal: General: Abdomen is flat. There is no distension. Palpations: Abdomen is soft. There is no mass. Tenderness: There is no abdominal tenderness. There is no right CVA tenderness, guarding or rebound. Hernia: No hernia is present. Musculoskeletal: General: Normal range of motion. Cervical back: Normal range of motion. Skin: General: Skin is warm. Neurological: General: No focal deficit present. Mental Status: He is alert. Psychiatric: Mood and Affect: Mood normal. Behavior: Behavior normal. Assessment/Plan Diagnoses and all orders for this visit: Annual physical exam Comments: Normal exam Pt is to maintain a healthy and balanced diet Orders: - CBC auto differential; Future - Comprehensive Metabolic Panel; Future - HIV-1/2 Antigen and Antibodies, Fourth Generation, with Reflexes; Future - Hepatitis C Antibody with Reflex to HCV, RNA, Quantitative, Real-Time PCR; Future Hypercholesterolemia Comments: Last lipid panel from December 2023 was at goal Pt Has stopped his simvastatin 1 month ago. Seasonal allergic rhinitis due to other allergic trigger Comments: Stable No change in management for now Encounter for immunization - COVID-19 VACCINE (Pfizer) [id number] 12 yrs + - HEPATITIS B VACCINE ADULT 20 yrs + - PCV-20 VACCINE 6 wks + documented in this encounter Plan of Treatment Upcoming Encounters Date Type Department Care Team (Late st Contact Info) Description 09/21/2024 8:00 AM EST Office Visit [facility] ADULT DENTAL [address] [place] [address] Skyla Thornton [address] [place] [address] 10/09/2024 11:30 AM EDT Clinical Support [facility] [address] [place] [address] Scheduled Orders Name Type Priority Associated Diagnoses Orde r Schedule CBC auto differential Lab Routine Annual physical exam Expected: 09/08/2024 (Approximate), Expires: 09/08/2025 Comprehensive Metabolic Panel Lab Routine Annual physical exam Expected: 09/08/2024 (Approximate), Expires: 09/08/2025 HIV-1/2 Antigen and Antibodies, Fourth Generation, with Reflexes Lab Routine Annual physical exam Expected: 09/08/2024 (Approximate), Expires: 09/08/2025 Hepatitis C Antibody with Reflex to HCV, RNA, Quantitative, Real-Time PCR Lab Routine Annual physical exam Expected: 09/08/2024, Expires: 09/08/2025 documented as of this encounter Visit Diagnoses Diagnosis Annual physical exam- Primary Routine general medical examination at a health care facility Hypercholesterolemia Pure hypercholesterolemia Seasonal allergic rhinitis due to other allergic trigger Encounter for immunization documented in this encounter Additional Health Concerns Assessment Noted Time PHQ-9 Depression Total Score: 0 09/08/19 25 9:42 AM EST documented as of this encounter Care Teams Tire Buster Relationship Specialty Start Date End Date Shelia Saavedra MD [address] [place] [address] PCP - General Internal Medicine 07/29/18 documented as of this encounter
--- OUTSIDE RECORDS SUMMARY | 2024-09-12 07:29 | XMS_ITS | Encounter Summary ---
Author Organization [employer] Address [address] [place] [address] 7t [place] [address] Care Team Providers Care Rod Puller And Coiler Name Role Phone Shelia Saavedra MD Primary Care Provider [phone] Encounter Details Date Type Department Care Team (Latest Contact Info) Description 04/18/2023 Orders Only [facility] MED & PEDS [address] [place], [place] [phone] Shelia Saavedra MD [address] [place] [address] Hypercholesterolemia (Primary Dx) Social History Tobacco Use Types Packs/Day Years Used Date Smoking Tobacco: Never Smokeless Tobacco: Never Sex and Gender Information Value Date Recorded [...] 8:00 AM EST Office Visit [facility] ADULT DENTAL [address] [place], [place] [phone] Skyla Thornton [address] [place] [address] 10/09/2024 11:30 AM EDT Clinical Support [facility] [address] [place], [place] [phone] documented as of this encounter Procedures Procedure Name Priority Date/Time Associated Diagnosis Comments HEPATIC FUNCTION PANEL Routine 04/22/2023 4:33 PM EDT Hypercholesterolemi a LIPID PANEL, STANDARD Routine 04/22/2023 4:33 PM EDT Hypercholesterolemi a BASIC METABOLIC PANEL Routine 04/22/2023 4:33 PM EDT Hypercholesterolemi a documented in this encounter Results * (ABNORMAL) Lipid Panel, Standard (04/22/2023 4:33 PM EDT) Triglycerides 105 <150 mg/dL [facility] Comment:Desirable Triglyceri de: less than 150 mg/dLBorderline High Triglyceride 150-199 mg/dLHigh Triglyceride: 200-499 mg/dLVery High Triglyceride: greater than or equal to 5OO mg/dL Cholesterol 231(H) <200 mg/dL [facility] Comment:Desirable Cholestero l: less than 200 mg/dLBorderline High Cholesterol: 200-239 mg/dLHigh Cholesterol: greater than 239 mg/dL LDL Cholesterol Calculated 145(H) <100 mg/dL [facility] Comment:Desirable LDL: less than 100 mg/dLNear Optimal/Above Optimal LDL: 110- 129 mg/dLBorderline High LDL: 130-159 mg/dLHigh LDL: 160-189 mg/dLVery High LDL: greater than or equal to 190 mg/dL HDL Cholesterol 65 >40 mg/dL [facility] Comment:Desirable HDL: great er than 40 mg/dL Note: This HDL assay may give artificially low results in patients with liver disease. Blood Venous blood specimen / Unknown 04/22/2023 4:33 PM EDT 04/22/2023 4:33 PM EDT us Shelia Saavedra MD LAB BLOOD ORDERABLES Final Result [facility] [address] [place] [address] [phone] * Hepatic Function Panel (04/22/2023 4:33 PM EDT) Bilirubin, Total 0.5 0.0 - 1.0 mg/dL [facility] Bilirubin, Direct 0.2 0.0 - 0.5 mg/dL [facility] Aspartate Amino Transferase 21 5 - 37 U/L [facility] Alanine Aminotransferase 17 0 - 40 U/L [facility] Total Protein 7.2 6.5 - 8.0 g/dL [facility] Albumin Level 4.2 3.5 - 5.0 g/dL [facility] Alkaline Phosphatase 78 39 - 117 U/L [facility] Blood Venous blood specimen / Unknown 04/22/2023 4:33 PM EDT 04/22/2023 4:33 PM EDT us Shelia Saavedra MD LAB BLOOD ORDERABLES Final Result [facility] [address] [place] [phone] * Basic Metabolic Panel (04/22/2023 4:33 PM EDT) Pathologist [facility] Sodium 141 135 - 145 mmol/L [facility] Potassium 3.5 3.3 - 5.1 mmol/L [facility] Chloride 102 96 - 108 mmol/L [facility] Carbon Dioxide 27 22 - 29 mmol/L [facility] Anion Gap 16 12 - 20 [facility] Urea Nitrogen (BUN) 10 9 - 16 mg/dL [facility] Creatinine, Serum 0.83 0.5 - 1.4 mg/dL [facility] Estimated Glomerular Filt Rate >60 [facility] Comment:NOTE: For -Am erican individuals, multiply the result by 1.210.Chronic Kidney Disease: Estimated GFR < 60 mL/min/1.07m0Trtpvr Kidney Disease: Estimated GFR < 15 mL/min/1.73m2 Glucose 84 60 - 115 mg/dL [facility] Calcium 9.8 8.4 - 10.2 mg/dL [facility] Blood Venous blood specimen / Unknown 04/22/2023 4:33 PM EDT 04/22/2023 4:33 PM EDT Shelia Saavedra MD LAB BLOOD ORDERABLES Final Result [facility] [address] [place] [address] [phone] documented in this encounter Visit Diagnoses Diagnosis Hypercholesterolemia- Primary Pure hypercholesterolemia documented in this encounter Additional Health Concerns Assessment Noted Time PHQ-9 Depression Total Score: 0 08/14/19 23 2:08 PM EST documented as of this encounter Care Teams Rod Puller And Coiler Relationship Specialty Start Date End Date Shelia Saavedra MD [address] [place] [phone] PCP - General Internal Medicine 07/29/18 documented as of this encounter
[2024-09-12 07:47] LABS: MANUAL DIFF FLAG NO
[2024-09-12 08:08] LABS: Basophils Percent Auto 0.4 % (0-2); Eosinophils Absolute Auto 0.1 X10*3/uL (0.0-0.4); Eosinophils Percent Auto 2.9 % (0-4); Hematocrit 41.9 % (42.0-52.0); Hemoglobin 13.9 g/dl (14.0-18.0); Imm Gran Abs Auto 0.01 X10*3/uL (0.00-0.03); Imm Gran Pct Auto 0.2 % (0.0-0.4); Lymphocytes Absolute Auto 1.6 X10*3/uL (1.2-4.9); Lymphocytes Percent Auto 33.4 % (20-40); Mean Corpuscular HGB Conc 33.2 g/dl (31.0-36.0); Mean Corpuscular Hemoglobin 28.7 pg (27.0-33.0); Mean Corpuscular Volume 86.6 fL (80.0-98.0); Mean Platelet Volume 10.8 fL (9.4-12.4); Monocytes Absolute Auto 0.5 X10*3/uL (0.1-1.2); Monocytes Percent Auto 10.1 % (2-11); Neutrophils Absolute Auto 2.5 x10*3/uL (2.0-8.3); Platelet Count 191 X10*3/uL (160-400); Red Blood Count 4.84 X10*6/uL (4.60-5.80); Red Cell Distribution Width 12.5 % (11.0-16.0); White Blood Count 4.8 X10*3/uL (4.8-10.8)
[2024-09-12 08:42] LABS: Alanine Aminotransferase 18 U/L (0-40); Albumin Level 3.9 g/dL (3.5-5.0); Anion Gap 12 (12-20); Aspartate Amino Transferase 24 U/L (5-37); Bilirubin Total 0.5 mg/dL (0.0-1.0); Blood Urea Nitrogen 15 mg/dL (9-16); Calcium 9.7 mg/dL (8.4-10.2); Carbon Dioxide 29 mmol/L (22-29); Chloride 107 mmol/L (96-108); Cholesterol 221 mg/dL (<200); Estimated Glomerular Filt Rate > 60; Glucose Random 100 mg/dL (60-115); HDL Cholesterol 59 mg/dL (>40); LDL Cholesterol Calculated 149 mg/dL (<100); Potassium 4.8 mmol/L (3.3-5.1); Sodium 143 mmol/L (135-145); Total Protein 7.3 g/dL (6.5-8.0); Triglycerides 67 mg/dL (<150)
[2024-09-12 08:57] LABS: HIV AB/AG Nonreactive (Nonreactive); HIV Num 1 0.06 S/CO (0.00-0.99); ~HepC Num1 0.06 S/CO (0.00-0.79); ~Hepatitis C Antibody Nonreactive (Nonreactive)
[2024-09-12 09:00] LABS: Alkaline Phosphatase 88 U/L (39-117)
== END 2024-09-12 07:28 | disposition home or self-care (01) ==
LOC: HO.LAB 07:27
PROVIDERS: PCP Internal Medicine; Visit Provider Internal Medicine
DX: Z00.00 Encounter for general adult medical examination without abnormal findings (principal); E78.00 Pure hypercholesterolemia, unspecified
CPT/HCPCS: 36415; 80053; 80061; 85025; 86803; 87389

== ENCOUNTER 2024-12-17 08:35 | Outpatient (REF) | payer OTHER, SELFPAY ==
--- NOTE | ~2024-12-17 | XR_ITS ---
EXAMINATION: XR HAND/WRIST, RIGHT XR HAND/WRIST, LEFT CLINICAL INFORMATION: bilateral hand pain COMPARISON: Left hand 05/01/2022. No prior right hand. TECHNIQUE: PA, lateral, and oblique views of the each hand and wrist. FINDINGS: RIGHT HAND/WRIST: The bones and soft tissues are normal. No fracture. Alignment is anatomic. Joint spaces are maintained. No periarticular osteopenia. No erosions or soft tissue calcifications. LEFT HAND/WRIST: The bones and soft tissues are normal. No fracture. Alignment is anatomic. Joint spaces are maintained. No periarticular osteopenia. No erosions or soft tissue calcifications. XR/XR Hand Bilat min 3v IMPRESSION: Normal radiographs of the hands and wrists. No significant degenerative or evidence of inflammatory arthropathy. Electronically signed by: Wai Ayoub MD 12/17/2024 09:16 AM EDT
--- OUTSIDE RECORDS SUMMARY | 2024-12-17 08:47 | XMS_ITS | Encounter Summary ---
Author Organization [employer] Address [address] [facility] 7t [place] [address] Care Team Providers Care Netbackup Engineer Name Role Phone Shelia Saavedra MD Primary Care Provider [phone] Encounter Details Date Type Department Care Team ([facility] st Contact Info) Description 09/15/2024 Orders Only [facility] MED & PEDS [address] [place], [place] [phone] hSelia Saavedra MD [address] [place] [address] Social History Tobacco Use Types Packs/Day Years [...] Care Team (Late st Contact Info) Description 12/25/2024 10:00 AM EDT Clinical Support [facility] [address] [place] [address] 02/24/2025 8:00 AM EDT Office Visit [facility] ADULT DENTAL [address] [place] [address] Evon Dick documented as of this encounter Visit Diagnoses Not on filedocumented in this encounter Additional Health Concerns Assessment Noted Time PHQ-9 Depression Total Score: 0 09/08/19 25 9:42 AM EST documented as of this encounter Care Teams Netbackup Engineer Relationship Specialty Start Date End Date Shelia Saavedra MD [address] [place] [address] PCP - General Internal Medicine 07/29/18 documented as of this encounter
--- OUTSIDE RECORDS SUMMARY | 2024-12-17 08:47 | XMS_ITS | Clinical Summary ---
Author Organization [employer] Address 75 [facility] 7t [place] [address] Care Team Providers Care Outsole Flexer Name Role Phone Shelia Saavedra MD Primary Care Provider [phone] Allergies No known active allergies Medications Diclofenac Sodium 1 % gel Apply topically every 12 (twelve) hours. 05/08/20 22 Active econazole nitrate 1 % cream Apply topically every 12 (twelve) hours. 03/26/20 22 Active Diclofenac Sodium 1 % gelIndications :Acute pain of left shoulder APPLY 2 GRAM'S TO AFFECTED AREA(s) THREE TIMES DAILY NEEDED 100 g 3 02/13/20 24 Active fluticasone (Flonase) 50 MCG/ACT nasal spray INHALE ONE SPRAY IN EACH NOSTRIL ONCE DAILY 16 g 3 09/21/19 25 Active naproxen sodium (Anaprox) 550 MG tablet TAKE ONE TABLET TWICE DAILY NEEDED FOR PAIN 30 tablet 3 09/21/19 25 Active simvastatin (Zocor) 20 MG tablet TAKE ONE TABLET EVERY DAY 90 tablet 1 12/16/19 25 Active cholecalcifero l VITAMIN D (Vitamin D-3) 50 MCG (1999 UT) capsule TAKE ONE CAPSULE EVERY DAY 90 capsule 1 12/16/19 25 Active loratadine (Claritin) 10 MG tabletIndicati ons:Seasonal allergies TAKE ONE TABLET EVERY DAY 90 tablet 1 12/16/19 25 Active EPINEPHrine (Epipen) 0.3 MG/0.3ML injection syringeIndicat ions: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 use as directed for allergic reaction and then call 911 2 mL 2 12/16/19 25 Active simvastatin (Zocor) 20 MG tablet TAKE ONE TABLET EVERY DAY 90 tablet 1 03/31/20 24 025 Discontinued cholecalcifero l VITAMIN D (Vitamin D-3) 50 MCG (1999) capsule TAKE ONE CAPSULE DAILY 90 capsule 1 03/31/20 24 025 Discontinued loratadine (Claritin) 10 MG tabletIndicati ons:Seasonal allergies TAKE ONE TABLET DAILY 90 tablet 1 03/31/20 24 025 Discontinued Active Problems Problem Noted Date Diagnosed Date [...] Encounters Date Type Department Care Team Description 12/15/2024 2:00 PM EDT Office Visit [facility] MED & PEDS [address] [place] [address] Shelia Saavedra MD 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); Pain in both hands; Bunion of great toe; Callus; Left lower quadrant pain; 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 12/15/2024 Travel 12/15/2024 Refill [facility] MED & PEDS [address] [place] [address] Shelia Saavedra MD Seasonal allergies 11/25/2024 Telephone [facility] [address] [place], [place] [phone] Shelia Saavedra MD Nurse Triage 10/19/2024 11:30 AM EDT Clinical Support [facility] MED & PEDS [address] [place] [address] Jennifer Anderson RN Encounter for immunization 10/19/2024 Travel 09/21/2024 8:00 AM EST Office Visit [facility] ADULT DENTAL [address] [place] [address] Skyla Thornton 09/21/2024 Refill [facility] MED & PEDS [address] [place] [address] Shelia Saavedra MD from Last 3 Months Immunizations Immunization Administration Dates Next Due Hep B, adult 10/19/2024,09/08/2024 INFLUENZA VACCINE QUADRIVALE NT RECOMBINANT PRESERVATIVE FREE [...] Sign Reading Time Taken Comments Blood Pressure 122/77 12/15/2024 2:08 PM EDT Pulse 85 12/15/2024 2:08 PM EDT Temperature 36.6 ??C (97.9 ??F) 12/15/2024 2:08 PM ED T Respiratory Rate 20 12/15/2024 2:08 PM EDT Oxygen Saturation 97% 12/15/2024 2:08 PM EDT Inhaled Oxygen Concentration - - Weight 69.9 kg (154 lb) 12/15/2024 2:08 PM EDT Height 167.6 cm (5' 6 ) 12/15/2024 2:08 PM EDT Body Mass Index 24.86 12/15/2024 2:08 PM EDT Plan of Treatment Upcoming Encounters Date Type Department Care Team ([facility] st Contact Info) Description 12/25/2024 10:00 AM EDT Clinical Support [facility] CH[facility] MED & PEDS [address] [place] [address] 02/24/2025 8:00 AM EDT Office Visit [facility] ADULT DENTAL [address] [place] [address] Evon Dick Health Maintenance Due Date Last Done Comments CT Colonography 1965 FIT DNA/Cologuard 1965 FIT 1965 FOBT 1965 Sigmoidoscopy 1965 Disability Screening 1965 Dental X-Ray: Full Mouth 09/01/2020 018, 03/26/2016, 08/11/2014 Dental X-Ray: Bitewings 01/03/2025 01/03/20 24, 01/05/2019, 08/31/2017, Additional history exists Dental Oral Exam 02/25/2025 08/27/2024, 01/2020, 01/05/2019, Additional history exists Dental Prophylaxis 02/25/2025 08/27/2024, 0 02/17/2024, 08/04/2019, Additional history exists Hepatitis B Vaccines (3 of 3 - 19+ 3-dose series) 03/08/2025 10/19/2024, 09/08/2024 Alcohol/Substance Use Screening 09/08/2025 09/08/2024 Depression Screening 09/08/2025 09/08/2024, 09/08/19 SDOH Screening 09/08/2025 09/08/2024 Tobacco Screening 09/21/2025 09/21/2024 DTaP/Tdap/Td Vaccines (2 - Td or Tdap) 12/13/2025 12/14/2015, 06/28/2001 Colonoscopy 04/16/2026 04/16/2016 Colorectal Cancer Screening 04/16/2026 Lipid Panel 09/12/2029 09/12/2024, 12/28, 04/22/2023, Additional history exists RSV Patients and Patients Aged 60 years or older (1 - 1-dose 75+ series) 2040 Zoster Vaccines Completed 01/27/2021, 10/01/2019 Influenza Vaccine Completed 04/22/2024, , 04/18/2022, Additional history exists COVID-19 Vaccine Completed 09/08/2024, 02/2023, 11/05/2022, Additional history exists Pneumococcal Vaccine: 50+ Years Completed 09/08/2024 HIV Screening Completed 09/12/2024 Hepatitis C Screening Completed 09/12/2024 HIB Vaccines Aged Out No longer eligi [...] patient's age to complete this topic Meningococcal B Vaccine Aged Out No l onger eligible based on patient's age to complete [...] PRESENTATION, DETAILED AND EXTENSIVE TREATMENT PLANNING Routine 09/21/2024 8:00 AM EST 7 DEN RESIN-BASED COMPOSITE - 3 SURF, ANTERIOR Routine 09/21/2024 8:00 AM EST 29 DO RESIN-BASED COMPOSITE - 2 SURF, POSTERIOR Routine 09/21/2024 8:00 AM EST 2 O RESIN-BASED COMPOSITE - 1 SURF, POSTERIOR Routine 09/21/2024 8:00 AM EST HEPATITIS C AB W/REFL TO HCV RNA, QN, PCR Routine 09/12/2024 7:44 AM EST Annual physical exam HIV 1/2 ANTIGEN/ANTIBODY, FOURTH GENERATION W/RFL Routine 09/12/2024 7:44 AM EST Annual physical exam LIPID PANEL, STANDARD Routine 09/12/2024 7:44 AM EST Hypercholesterolemi a PROPHYLAXIS - ADULT Routine 08/27/2024 8 :00 AM EST PERIODIC ORAL EVALUATION - ESTABLISHED PATIENT Routine 08/27/2024 8:00 AM EST BITEWING - SINGLE RADIOGRAPHIC IMAGE Routine 01/03/2024 2:30 PM EDT INTRAORAL - COMPLETE SERIES OF RADIOGRAPHIC IMAGES Routine 08/31/2017 12:00 AM EST COLONOSCOPY Routine 04/16/2016 from Last 3 Months or Most Recently Relevant to Health Maintenance Results * Hepatitis C Antibody with Reflex to HCV, RNA, Quantitative, Real-Time PCR (09/12/2024 7:44 AM EST) Hepatitis C Antibody Nonreactive Nonreactive [facility] Comment:Antibodies to HCV no t detected; does not exclude early acuteHCV infection. Blood Venous blood specimen / Unknown 09/12/2024 7:44 AM EST 09/12/2024 7:46 AM EST us Shelia Saavedra MD LAB BLOOD ORDERABLES Final Result Performing Organization Address [facility]/ZIP Co de Phone Number [facility] [address] [place] [phone] * HIV-1/2 Antigen and Antibodies, Fourth Generation, with Reflexes (09/12/2024 7:44 AM EST) HIV AB/AG Nonreactive Nonreactive [facility] Comment:HIV-1 p24 Ag and/or HIV-1/HIV-2 Ab not detected.A test result that is nonreactive does not exclude thepossibility of exposure to or infection with HIV-1 and/orHIV-2. Nonreactive results in this assay for individualswith prior exposure to HIV-1 and/or HIV-2 may be due toantigen and antibody levels that are below the limit ofdetection of this assay.The [employer] HIV Ag/Ab Combo assay result andsupplemental assay results should be interpreted inconjunction with the patient's clinical presentation,history and other laboratory results. If the results areinconsistent with clinical evidence, additional testing issuggested to confirm the result. Blood Venous blood specimen / Unknown 09/12/2024 7:44 AM EST 09/12/2024 7:46 AM EST us Shelia Saavedra MD LAB BLOOD ORDERABLES Final Result Performing Organization Address [facility]/ZIP Co de Phone Number [facility] [address] [place] [phone] * (ABNORMAL) Lipid Panel, Standard (09/12/2024 7:44 AM EST) Triglycerides 67 <150 mg/dL [facility] Comment:Desirable Triglyceri de: less than 150 mg/dLBorderline High Triglyceride 150-199 mg/dLHigh Triglyceride: 200-499 mg/dLVery High Triglyceride: greater than or equal to 5OO mg/dL Cholesterol 221(H) <200 mg/dL [facility] Comment:Desirable Cholestero l: less than 200 mg/dLBorderline High Cholesterol: 200-239 mg/dLHigh Cholesterol: greater than 239 mg/dL LDL Cholesterol Calculated 149(H) <100 mg/dL [facility] Comment:Desirable LDL: less than 100 mg/dLNear Optimal/Above Optimal LDL: 110- 129 mg/dLBorderline High LDL: 130-159 mg/dLHigh LDL: 160-189 mg/dLVery High LDL: greater than or equal to 190 mg/dL HDL Cholesterol 59 >40 mg/dL [facility] Comment:Desirable HDL: great er than 40 mg/dL Note: This HDL assay may give artificially low results in patients with liver disease. Blood Venous blood specimen / Unknown 09/12/2024 7:44 AM EST 09/12/2024 7:46 AM EST us Shelia Saavedra MD LAB BLOOD ORDERABLES Final Result [facility] [address] [place] [phone] * Colonoscopy (04/16/2016) Anatomical Region Laterality Modality Endoscopy Narrative 04/16/2016 Normal colonoscopy us Shelia Saavedra MD ENDOSCOPY PROCEDURE ORDERAB LES Final Result from Last 3 Months or Most Recently Relevant to Health Maintenance Insurance [facility] , [address] [place] [address] DENTAL - HSN PARTIAL (MEDICAID) Care Teams Outsole Flexer Relationship Specialty Start Date End Date Shelia Saavedra MD [address] [place] [address] [place] [address] PCP - General Internal Medicine 07/29/18
--- OUTSIDE RECORDS SUMMARY | 2024-12-17 08:47 | XMS_ITS | Encounter Summary ---
Author Organization [employer] [facility] Address [address] [place] [address] 7 [place] [address] Care Team Providers Care Public Health Service Officer Name Role Phone Shelia Saavedra MD Primary Care Provider [phone] Encounter Details Date Type Department Care Team (Latest Contact Info) Description 08/04/2019 Abstract [facility] CONVERSIONS Dental, Provider, DDS Social History Tobacco [...] Care Team ( st Contact Info) Description 12/25/2024 10:00 AM EDT Clinical Support [facility] MED & PEDS [address] [place] [address] 02/24/2025 8:00 AM EDT Office Visit [facility] ADULT DENTAL [address] [place] [address] Evon Dick documented as of this encounter Visit Diagnoses Not on filedocumented in this encounter Care Teams Public Health Service Officer Relationship Specialty Start Date End Date Shelia Saavedra MD [address] [place] [address] PCP - General Internal Medicine 07/29/18 documented as of this encounter
--- OUTSIDE RECORDS SUMMARY | 2024-12-17 08:47 | XMS_ITS | Encounter Summary ---
Author Organization [employer] Address [address] [facility] 7t [place] [address] Care Team Providers Care Second Cook And Baker Name Role Phone Shelia Saavedra MD Primary Care Provider [phone] Encounter Details Date Type Department Care Team (Latest Contact Info) Description 04/18/2023 Orders Only [facility] MED & PEDS [address] [place] [address] Shelia Saavedra MD [address] [place] [address] Hypercholesterolemia (Primary Dx) Social History Tobacco Use [...] Description 12/25/2024 10:00 AM EDT Clinical Support [facility] MED & PEDS [address] [place], [place] [phone] 02/24/2025 8:00 AM EDT Office Visit [facility] ADULT DENTAL [address] [place], [place] [phone] Evon Dick documented as of this encounter Procedures Procedure Name Priority Date/Time Associated Diagnosis Comments HEPATIC FUNCTION PANEL Routine 04/22/2023 4:33 PM EDT Hypercholesterolemi a LIPID PANEL, STANDARD Routine 04/22/2023 4:33 PM EDT Hypercholesterolemi a BASIC METABOLIC PANEL Routine 04/22/2023 4:33 PM EDT Hypercholesterolemi a documented in this encounter Results * (ABNORMAL) Lipid Panel, Standard (04/22/2023 4:33 PM EDT) Triglycerides 105 <150 mg/dL [facility] Comment:Desirable Triglyceri de: less than 150 mg/dLBorderline High Triglyceride 150-199 mg/dLHigh Triglyceride: 200-499 mg/dLVery High Triglyceride: greater than or equal to 5OO mg/dL Cholesterol 231(H) <200 mg/dL [facility] Comment:Desirable Cholestero l: less than 200 mg/dLBorderline High Cholesterol: 200-239 mg/dLHigh Cholesterol: greater than 239 mg/dL LDL Cholesterol Calculated 145(H) <100 mg/dL [facility] Comment:Desirable LDL: less than 100 mg/dLNear Optimal/Above Optimal LDL: 110- 129 mg/dLBorderline High LDL: 130-159 mg/dLHigh LDL: 160-189 mg/dLVery High LDL: greater than or equal to 190 mg/dL HDL Cholesterol 65 >40 mg/dL [facility] Comment:Desirable HDL: great er than 40 mg/dL Note: This HDL assay may give artificially low results in patients with liver disease. Blood Venous blood specimen / Unknown 04/22/2023 4:33 PM EDT 04/22/2023 4:33 PM EDT us Shelia Saavedra MD LAB BLOOD ORDERABLES Final Result [facility] [address] [place] [phone] * Hepatic Function Panel (04/22/2023 4:33 PM EDT) Bilirubin, Total 0.5 0.0 - 1.0 mg/dL [facility] Bilirubin, Direct 0.2 0.0 - 0.5 mg/dL [facility] Aspartate Amino Transferase 21 5 - 37 U/L [facility] Alanine Aminotransferase 17 0 - 40 U/L [facility] Total Protein 7.2 6.5 - 8.0 g/dL [facility] Albumin Level 4.2 3.5 - 5.0 g/dL [facility] Alkaline Phosphatase 78 39 - 117 U/L [facility] Blood Venous blood specimen / Unknown 04/22/2023 4:33 PM EDT 04/22/2023 4:33 PM EDT us Shleia Saavedra MD LAB BLOOD ORDERABLES Final Result [facility] [address] [place] [phone] * Basic Metabolic Panel (04/22/2023 4:33 PM EDT) Sodium 141 135 - 145 mmol/L [facility] Potassium 3.5 3.3 - 5.1 mmol/L [facility] Chloride 102 96 - 108 mmol/L [facility] Carbon Dioxide 27 22 - 29 mmol/L [facility] Anion Gap 16 12 - 20 [facility] Urea Nitrogen (BUN) 10 9 - 16 mg/dL [facility] Creatinine, Serum 0.83 0.5 - 1.4 mg/dL [facility] Estimated Glomerular Filt Rate >60 [facility] Comment:NOTE: For -Am erican individuals, multiply the result by 1.210.Chronic Kidney Disease: Estimated GFR < 60 mL/min/1.60d6Rhulpk Kidney Disease: Estimated GFR < 15 mL/min/1.73m2 Glucose 84 60 - 115 mg/dL [facility] Calcium 9.8 8.4 - 10.2 mg/dL [facility] Blood Venous blood specimen / Unknown 04/22/2023 4:33 PM EDT 04/22/2023 4:33 PM EDT Shelia Saavedra MD LAB BLOOD ORDERABLES Final Result [facility] [address] [place] [phone] documented in this encounter Visit Diagnoses Diagnosis Hypercholesterolemia- Primary Pure hypercholesterolemia documented in this encounter Additional Health Concerns Assessment Noted Time PHQ-9 Depression Total Score: 0 08/14/19 23 2:08 PM EST documented as of this encounter Care Teams Second Cook And Baker Relationship Specialty Start Date End Date Shelia Saavedra MD [address] [place] [phone] PCP - General Internal Medicine 07/29/18 documented as of this encounter
--- OUTSIDE RECORDS SUMMARY | 2024-12-17 08:48 | XMS_ITS | Encounter Summary ---
Author Organization [employer] Address [address] [facility] 7 [place] [address] Care Team Providers Care Button Sewer Hand Name Role Phone Shelia Saavedra MD Primary Care Provider [phone] Reason for Visit * Reason Comments Med Refill Encounter Details Date Type Department Care Team ([facility] Contact Info) Description 12/15/2024 Refill [facility] MED & PEDS [address] [place] [address] Shelia Saavedra MD [address] [place] [address] Seasonal allergies Social History Tobacco Use Types Packs/Day Years [...] Description 12/25/2024 10:00 AM EDT Clinical Support [facility] MED & PEDS [address] [place] [address] 02/24/2025 8:00 AM EDT Office Visit [facility] ADULT DENTAL [address] [place] [address] Evon Dick documented as of this encounter Visit Diagnoses Diagnosis Seasonal allergies Allergic rhinitis, cause unspecified documented in this encounter Additional Health Concerns Assessment Noted Time PHQ-9 Depression Total Score: 0 09/08/19 25 9:42 AM EST documented as of this encounter Care Teams Button Sewer Hand Relationship Specialty Start Date End Date Shelia Saavedra MD [address] [place] [address] PCP - General Internal Medicine 07/29/18 documented as of this encounter
--- OUTSIDE RECORDS SUMMARY | 2024-12-17 08:48 | XMS_ITS | Encounter Summary ---
Author Organization [employer] Address [address] [place] [address] Care Team Providers Care Press Secretary Name Role Phone Shelia Saavedra MD Primary Care Provider [phone] Encounter Details Date Type Department Care Team (Latest Contact Info) Description 12/15/2024 Travel Social History Tobacco Use Types Packs/Day [...] Description 12/25/2024 10:00 AM EDT Clinical Support [facility] [address] [place] [address] 02/24/2025 8:00 AM EDT Office Visit [facility] [address] [place] [address] Evon Dick documented as of this encounter Visit Diagnoses Not on filedocumented in this encounter Additional Health Concerns Assessment Noted Time PHQ-9 Depression Total Score: 0 09/08/19 25 9:42 AM EST documented as of this encounter Care Teams Press Secretary Relationship Specialty Start Date End Date Shelia Saavedra MD [address] [place] [address] PCP - General Internal Medicine 07/29/18 documented as of this encounter
--- OUTSIDE RECORDS SUMMARY | 2024-12-17 08:48 | XMS_ITS | Encounter Summary ---
Author Organization [employer] Address [address] [place] [address] Care Team Providers Care [employer]ductors Wafer Breaker Name Role Phone Shelia Saavedra MD Primary Care Provider [phone] Reason for Referral * Consultation (Routine) - Authorized Specialty Diagnoses / Procedures Referred By Queenie hurtado Referred To Contact Podiatry Diagnoses Bunion of great toe Callus Shelia Saavedra MD [address] [place] [address] Phone: tel: fax: Henri Chopra DPM [address] [place] [address] [place] [address] Phone: tel: fax: Referral ID Status Reason Start Date Expiration Date Visits Requested Visits Authorized [id number] Authorized Specialty Services Required 12/16/2024 12/16/2025 1 1 Reason for Visit * Reason Comments Shoulder Pain Hand Pain Encounter Details Date Type Department Care Team ([facility] st Contact Info) Description 12/15/2024 2:00 PM EDT Office Visit [facility] [address] [place], [place] [phone] Shelia Saavedra MD [address] [place] [address] 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); Pain in both hands; Bunion of great toe; Callus; Left lower quadrant pain; 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 Social History Tobacco Use Types Packs/Day Years [...] Mass Index 24.86 12/15/2024 2:08 PM EDT documented in this encounter Progress Notes * Shelia Saavedra MD - 12/15/2024 2:00 PM EDT SUBJECTIVE Alvin Rg is a 59 y.o. male who presents for Shoulder Pain and Hand Pain. HPI 1) h/o Painful left arc shoulder. S/p rotator cuff repair, biceps tenotomy and SAD 09/25/23. Still having pain of the left shoulder exacerbated by movements: Abduction above 30 degrees and flexion ofthe left shoulder. Feels he has decreased strength of the left upper limb in general. Has a scheduled appointment w/ DR Salomón Barragan his surgeon on Dec 25 2024. 2) h/o b/l hand pain especially his MCP joints b/l , more on the left than the right. 3) h/o b/l lower limb pain more on the posterior thigh than the anterior thigh. 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 His overall pain is exacerbated by lifting, bending forward, squatting and movements in general. Problem List[1] Allergies[2] Medications Ordered Prior to Encounter[3] Review of Systems Constitutional: Negative for appetite change, chills and diaphoresis. Respiratory: Negative for cough, choking and shortness of breath. Cardiovascular: Negative for leg swelling. Musculoskeletal: Positive for arthralgias and myalgias. OBJECTIVE Vitals: 12/15/24 1408 BP: 122/77 BP Location: Left arm Patient Position: Sitting BP Cuff Size: Adult Pulse: 85 Resp: 20 Temp: 97.9 ??F (36.6 ??C) TempSrc: Oral SpO2: 97% Weight: 154 lb (69.9 kg) Height: 5' 6 (1.676 m) Physical Exam Constitutional: General: He is not in acute distress. Appearance: Normal appearance. He is not ill-appearing, toxic-appearing or diaphoretic. Cardiovascular: Rate and Rhythm: Normal rate. Pulmonary: Effort: Pulmonary effort is normal. Musculoskeletal: Left shoulder: Decreased strength. Right hand: Tenderness present. Comments: Decreased strength of the left arm No swelling of the hands. Mild tenderness to palpation of the MCPs, more on the left than the right. Feet: Comments: Deviation inward of the left big toe presence of A bony prominence of the inside of the left foot at the base of the big toe Skin: Comments: Calluses of the left sole. Neurological: Mental Status: He is alert. Assessment/Plan Assessment/Plan Diagnoses and all orders for this visit: Painful arc syndrome of left shoulder Comments: Follow-up with Ortho as scheduled. Continue with naproxen 500 mg 2 times a day as needed. Pain in both hands Comments: As above. Orders: - XR Hand 3+ Views Left; Future - XR Hand 3+ Views Right; Future Bunion of great toe - Referral to Podiatry; Future Callus - Referral to Podiatry; Future Left lower quadrant pain Comments: Patient continues to have discomfort of the left lower quadrant. His CT abdomen was reviewed and the etiology is unclear. 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 Comments: EpiPen refilled. Orders: - EPINEPHrine (Epipen) 0.3 MG/0.3ML injection syringe; Inject 0.3 mL (0.3 mg) as directed 1 (one) time for 1 dose. 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 (Patient not taking: Reported 08/27/2024) Diclofenac Sodium 1 % gel APPLY 2 [...] facility-administered medications on file prior to visit. documented in this encounter Plan of Treatment Upcoming Encounters Date Type Department Care Team (Late st Contact Info) Description 12/25/2024 10:00 AM EDT Clinical Support [facility] [address] [place] [address] 02/24/2025 8:00 AM EDT Office Visit [facility] [address] [place] [address] Evon Dick Scheduled Orders Name Type Priority Associated Diagnoses Orde r Schedule XR Hand 3+ Views Left Imaging Routine Pain in both hands Expected: 12/15/2024, Expires: 12/15/2025 XR Hand 3+ Views Right Imaging Routine Pain in both hands Expected: 12/15/2024, Expires: 12/15/2025 Scheduled Referrals Name Type Priority Associated Diagnoses Orde r Schedule Referral to Podiatry Outpatient Referral Routine Bunion of great toe Callus Expected: 12/16/2024 (Approximate), Expires: 12/16/2025 documented as of this encounter Visit Diagnoses Diagnosis Painful arc syndrome of left shoulder- Primary Pain in both hands Bunion of great toe Bunion Callus Corns and callosities Left lower quadrant pain Abdominal pain, left lower quadrant 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 documented in this encounter Additional Health Concerns Assessment Noted Time PHQ-9 Depression Total Score: 0 09/08/19 25 9:42 AM EST documented as of this encounter Care Teams Semiconductors Wafer Breaker Relationship Specialty Start Date End Date Shelia Saavedra MD [address] [place] [address] PCP - General Internal Medicine 07/29/18 documented as of this encounter
--- OUTSIDE RECORDS SUMMARY | 2024-12-17 08:48 | XMS_ITS | Encounter Summary ---
Author Organization [employer] Address [address] [facility] [address] [place] [address] Care Team Providers Care Wildfire Prevention Specialist Name Role Phone Shelia Saavedra MD Primary Care Provider [phone] Encounter Details Date Type Department Care Team (Late st Contact Info) Description 05/24/2023 Abstract [facility] [address] [place] [address] Shelia Saavedra MD [address] [place], [place] [phone] Social History Tobacco Use Types Packs/Day Years [...] 10:00 AM EDT Clinical Support [facility] [address] [place] [address] 02/24/2025 8:00 AM EDT Office Visit [facility] AD[facility] [address] [place] [address] Evon Dick Scheduled Orders Name Type Priority [...] documented as of this encounter Care Teams Wildfire Prevention Specialist Relationship Specialty Start Date End Date Shelia Saavedra MD [address] [place] [address] PCP - General Internal Medicine 07/29/18 documented as of this encounter
--- OUTSIDE RECORDS SUMMARY | 2024-12-17 08:48 | XMS_ITS | Encounter Summary ---
Author Organization [employer] Address [address] [facility] [address] [place] [address] Care Team Providers Care Combat Control Name Role Phone Shelia Saavedra MD Primary Care Provider [phone] Encounter Details Date Type Department Care Team ([facility] st Contact Info) Description 05/15/2023 Orders Only [facility] [address] [place], [place] [phone] Shelia Saavedra MD [address] [place] [address] Acute pain of left shoulder (Primary Dx) [...] the past 12 months, has t he [employer], oil or water company threatened to shut [...] Description 12/25/2024 10:00 AM EDT Clinical Support [facility] [address] [place] [address] 02/24/2025 8:00 AM EDT Office Visit [facility] ADULT DENTAL [address] [place] [address] Evon Dick documented as of this encounter Visit Diagnoses Diagnosis Acute pain of left shoulder- Primary documented in this encounter Additional Health Concerns Assessment Noted Time PHQ-9 Depression Total Score: 2 04/24/20 23 10:56 AM EDT documented as of this encounter Care Teams Combat Control Relationship Specialty Start Date End Date Shelia Saavedra MD [address] [place] [address] PCP - General Internal Medicine 07/29/18 documented as of this encounter
--- OUTSIDE RECORDS SUMMARY | 2024-12-17 08:48 | XMS_ITS | Encounter Summary ---
Author Organization [employer] Address [address] [facility] [address] [place] [address] Care Team Providers Care Corporate Development Associate Name Role Phone Shelia Saavedra MD Primary Care Provider [phone] Reason for Visit * Reason Onset Date Comments Nurse Triage 11/25/2024 Encounter Details Date Type Department Care Team (Late st Contact Info) Description 11/25/2024 Telephone [facility] [address] [place] [address] Shelia Saavedra MD [address] [place], [place] [phone] Nurse Triage Social History Tobacco Use Types [...] the past 12 months, has t he [employer], [employer], oil or water company threatened to [...] AM EDT documented as of this encounter Miscellaneous Notes * Telephone Encounter - Monse Ballesteros RN - 11/25/2024 12:51 PM EDT Triage call Pt reports body aches for last 2 months . Mainly right hand and knuckles and right arm.Pt reports using diclofenac cream as prescribed and naprosyn but it is not effective for good relief. Pt would like to see PCP again. ASK apt with Dr. Saavedra 12/15/24 @ 200pm. Pt requests apt to be after the 16th due to work schedule. Pt agrees with disposition. Home care is already in use. Insurance is verified as active prior to booking. Protocol Used: Muscle Aches and Body Pain (Adult) Protocol-Based Disposition: See in Office or Video Visit within 2 Weeks Video visit not offered Positive Triage Question: * Muscle aches or body pains are a chronic symptom (recurrent or ongoing AND present > 4 weeks) * All higher-acuity triage questions were negative Care Advice Discussed: * Reassurance and Education - Mild Muscle Pain * Pain Medicines * Pain Medicines - Extra Notes and Warnings * Reasons To Call Back - Fever occurs - Pain lasts longer than 7 days - You become worse * Telephone Encounter - Yeyo Mcclellan - 11/25/2024 11:29 AM EDT Symptom: Body Aches Outcome: Schedule an appointment to be seen within 3 days Reason: Caller denied all higher acuity questions The caller accepted this outcome. documented in this encounter Plan of Treatment Upcoming Encounters Date Type Department Care Team (Late st Contact Info) Description 12/25/2024 10:00 AM EDT Clinical Support [facility] [address] [place] [address] 02/24/2025 8:00 AM EDT Office Visit [facility] [address] [place] [address] Evon Dick documented as of this encounter Visit Diagnoses Not on filedocumented in this encounter Additional Health Concerns Assessment Noted Time PHQ-9 Depression Total Score: 0 09/08/19 25 9:42 AM EST documented as of this encounter Care Teams Corporate Development Associate Relationship Specialty Start Date End Date Shelia Saavedra MD [address] [place] [address] PCP - General Internal Medicine 07/29/18 documented as of this encounter
== END 2024-12-17 08:36 | disposition home or self-care (01) ==
LOC: HO.XRAY 08:35
PROVIDERS: PCP Internal Medicine; Visit Provider Internal Medicine
DX: M79.641 Pain in right hand (principal); M79.642 Pain in left hand
CPT/HCPCS: 73130

== ENCOUNTER → 2024-12-17 08:38 | Outpatient (BNV) | payer OTHER, SELFPAY | PROVIDERS: PCP Internal Medicine; Visit Provider Radiology Diagnostic Radiology | DX: M79.641 Pain in right hand (principal); M79.642 Pain in left hand | CPT/HCPCS: 73130 ==

== ENCOUNTER 2024-12-25 12:24 | Outpatient (AMB) | payer OTHER, SELFPAY ==
--- NOTE | 2024-12-25 12:26 | MHC.OFFVIS ---
Intake Visit Reasons: OV-Lt Shld 09/25/23 NE Intake Note: Alvin is a 58 year old right hand dominant male who presents today for a follow up of his left shoulder. Hx of Left RTC Repair - Biceps Tenotomy and SAD 09/25/23. Patient reports that he is having continued pain of the right shoulder, he has incread pain with driving and lifting. Denies numbness and tingling. Allergies grass pollen [GRASS POLLEN] Allergy (Severe, Verified 12/25/24 12:28) Shortness of Breath nut - unspecified [NUT - UNSPECIFIED] Allergy (Intermediate, Verified 12/25/24 12:28) throat itching HPI HPI OV-Lt Shld 09/25/23 NE: Details: Alvin is a 58 year old right hand dominant male who presents today for a follow up of his left shoulder. Hx of Left RTC Repair - Biceps Tenotomy and SAD 09/25/23. Patient reports that he is having continued pain of the right shoulder, he has increased pain with driving and lifting. Denies numbness and tingling. I saw him 9 months ago and he was having some biceps cramping. He had a right RTC repair and did well. This feels different form him. He localizes pain in the anterior shoulder. [facility] Medical History PONV (postoperative nausea and vomiting) Environmental allergies Hyperlipidemia Spinal stenosis of lumbar region Lumbar spondylosis Painful arc syndrome of left shoulder Internal derangement of left shoulder Surgical History Hx of colonoscopy History of back surgery S/P arthroscopy of right shoulder Family History Father No problems noted. Mother No problems noted. 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 Continued pain with daily activities. Biceps/AC joint pain but s/p biceps tenotomy. I recommend left shoulder MRI. Will re-eval after this is done. Orders: Orders MR shoulder LT wo con Today Z98.890 - Other specified postprocedural states Coding Level of Care Code Est Pt Level 3 (90787) Diagnoses S/P rotator cuff repair Z98.890
--- OUTSIDE RECORDS SUMMARY | 2024-12-25 12:53 | XMS_ITS | Clinical Summary ---
Author Organization [employer] Address [address] [facility] 7[address] [place] [address] Care Team Providers Care Community Center Director Name Role Phone Shelia Saavedra MD Primary Care Provider [phone] Allergies No known active allergies Medications Diclofenac [...] Encounters Date Type Department Care Team Description 12/17/2024 Results Follow-Up [facility] [address] [place] [address] Shelia Saavedra MD XR Hand 3+Views Bilateral 12/15/2024 2:00 PM EDT Office Visit [facility] [address] [place] [address] Shelia Saavedra MD 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); Pain in both hands; Bunion of great toe; Callus; Left lower quadrant pain; 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 12/15/2024 Travel 12/15/2024 Refill [facility] [address] [place] [address] Shelia Saavedra MD Seasonal allergies 11/25/2024 Telephone [facility] [address] [place] [phone] Shelia Saavedra MD Nurse Triage 10/19/2024 11:30 AM EDT Clinical Support [facility] [address] [place] [address] Jennifer Anderson RN Encounter for immunization 10/19/2024 Travel from Last 3 Months Immunizations Immunization Administration [...] Care Team (Late st Contact Info) Description 12/28/2024 10:15 AM EDT Clinical Support [facility] [address] [place] [address] 02/24/2025 8:00 AM EDT Office Visit [facility] ADULT DENTAL [address] [place] [address] Kapil, Evon Health Maintenance Due Date Last Done Comments [...] Procedure Name Priority Date/Time Associated Diagnosis Comments XR HAND 3+ VIEWS BILATERAL Routine 12/17/2024 8:40 AM EDT HEPATITIS C AB W/REFL TO HCV RNA, [...] Recently Relevant to Health Maintenance Results * XR Hand 3+Views Bilateral (12/17/2024 8:40 AM EDT) Anatomical Region Laterality Modality Upper Extremities, Hand Bilateral Radiogra phic Imaging 12/17/2024 8:40 AM EDT Narrative 12/17/2024 9:19 AM EDT ? [facility] ?[address] ?[place] [address] ?XRay Report ? Signed ? Patient: Rg Malachi,[place] ?MR#: MM ?? [id number] ? : 1965 ?Acct:[id number] ? Age/Sex: 59 / M ?ADM Date: 12/17/24 ? Loc: HO.XRAY ? Attending Dr: Shelia Saavedra MD ? Ordering Physician: Shelia Saavedra MD ?? Date of Service: 12/17/24 ?? Procedure(s): XR Hand Bilat min 3v ?? Accession Number(s): [id number] ? cc: Shelia Saavedra MD ? EXAMINATION: ?? XR HAND/WRIST, RIGHT ?? XR HAND/WRIST, LEFT ? CLINICAL INFORMATION: ?? bilateral hand pain ? COMPARISON: ?? Left hand 05/01/2022. No prior right hand. ? TECHNIQUE: ?? PA, lateral, and oblique views of the each hand and wrist. ? FINDINGS: ? RIGHT HAND/WRIST: The bones and soft tissues are normal. No fracture. ?? Alignment is anatomic. Joint spaces are maintained. No periarticular ?? osteopenia. No erosions or soft tissue calcifications. ? LEFT HAND/WRIST: The bones and soft tissues are normal. No fracture. ?? Alignment is anatomic. Joint spaces are maintained. No periarticular ?? osteopenia. No erosions or soft tissue calcifications. ? XR/XR Hand Bilat min 3v ?? IMPRESSION: ?? Normal radiographs of the hands and wrists. No significant degenerative ?? or evidence of inflammatory arthropathy. ? Electronically signed by: ??Wai Ayoub MD ??12/17/2024 09:16 AM EDT RP ? Dictated By: ?Wai Ayoub MD ? Signed By: ?<Electronically signed by Wai Ayoub MD in OV> ?12/17/24 0916 ? DD/ 0840 ? TD/TT: 12/17/24 0850 ? Nut Roaster: ? Procedure Note Veronica, Bre - 12/17/[address] [address] XRay Report Signed Patient: [place] Sultana#: [id number] : 1965Acct:[id number] Age/Sex: 59 / MADM Date: 12/17/24 Loc: [facility] Attending Dr: Shelia Saavedra MD Ordering Physician: Shelia Saavedra MD Date of Service: 12/17/24 Procedure(s): XR Hand Bilat min 3v Accession Number(s): [id number] cc: Shelia Saavedra MD EXAMINATION: XR HAND/WRIST, RIGHT XR HAND/WRIST, LEFT CLINICAL INFORMATION: bilateral hand pain COMPARISON: Left hand 05/01/2022. No prior right hand. TECHNIQUE: PA, lateral, and oblique views of the each hand and wrist. FINDINGS: RIGHT HAND/WRIST: The bones and soft tissues are normal. No fracture. Alignment is anatomic. Joint spaces are maintained. No periarticular osteopenia. No erosions or soft tissue calcifications. LEFT HAND/WRIST: The bones and soft tissues are normal. No fracture. Alignment is anatomic. Joint spaces are maintained. No periarticular osteopenia. No erosions or soft tissue calcifications. XR/XR Hand Bilat min 3v IMPRESSION: Normal radiographs of the hands and wrists. No significant degenerative or evidence of inflammatory arthropathy. Electronically signed by: Wai Ayoub MD 12/17/2024 09:16 AM EDT Dictated By: Wai Ayoub MD Signed By: <Electronically signed by Wai Ayoub MD in OV> 12/17/24 0916 DD/ 0840 TD/TT: 12/17/24 0850 Nut Roaster: us Shelia Saavedra MD IMG XR PROCEDURES Edited Re sult - Final * Hepatitis C Antibody with Reflex to HCV, RNA, Quantitative, Real-Time PCR (09/12/2024 7:44 AM EST) Hepatitis C Antibody Nonreactive Nonreactive [facility] Comment:Antibodies to HCV no t detected; does not exclude early acuteHCV infection. Blood Venous blood specimen / Unknown 09/12/2024 7:44 AM EST 09/12/2024 7:46 AM EST us Shelia Saavedra MD LAB BLOOD ORDERABLES Final Result Performing Organization Address [facility] Co de Phone Number [facility] [address] [place] [phone] * HIV-1/2 Antigen and Antibodies, Fourth Generation, with Reflexes (09/12/2024 7:44 AM EST) HIV AB/AG Nonreactive Nonreactive [facility] Comment:HIV-1 p24 Ag and/or HIV-1/HIV-2 Ab not detected.A test result that is nonreactive does not exclude thepossibility of exposure to or infection with HIV-1 and/orHIV-2. Nonreactive results in this assay for individualswith prior exposure to HIV-1 and/or HIV-2 may be due toantigen and antibody levels that are below the limit ofdetection of this assay.The [employer] HIV Ag/Ab Combo assay result andsupplemental assay results should be interpreted inconjunction with the patient's clinical presentation,history and other laboratory results. If the results areinconsistent with clinical evidence, additional testing issuggested to confirm the result. Blood Venous blood specimen / Unknown 09/12/2024 7:44 AM EST 09/12/2024 7:46 AM EST us Shelia Saavedra MD LAB BLOOD ORDERABLES Final Result Performing Organization Address [facility]/ZIP Co de Phone Number [facility] [address] [place] [phone] * (ABNORMAL) Lipid Panel, Standard (09/12/2024 7:44 AM EST) Triglycerides 67 <150 mg/dL [facility] Comment:Desirable Triglyceri de: less than 150 mg/dLBorderline High Triglyceride 150-199 mg/dLHigh Triglyceride: 200-499 mg/dLVery High Triglyceride: greater than or equal to 5OO mg/dL Cholesterol 221(H) <200 mg/dL [facility] Comment:Desirable Cholestero l: less than 200 mg/dLBorderline High Cholesterol: 200-239 mg/dLHigh Cholesterol: greater than 239 mg/dL LDL Cholesterol Calculated 149(H) <100 mg/dL [facility] Comment:Desirable LDL: less than 100 mg/dLNear Optimal/Above Optimal LDL: 110- 129 mg/dLBorderline High LDL: 130-159 mg/dLHigh LDL: 160-189 mg/dLVery High LDL: greater than or equal to 190 mg/dL HDL Cholesterol 59 >40 mg/dL [facility] Comment:Desirable HDL: great er than 40 mg/dL Note: This HDL assay may give artificially low results in patients with liver disease. Blood Venous blood specimen / Unknown 09/12/2024 7:44 AM EST 09/12/2024 7:46 AM EST us Shelia Saavedra MD LAB BLOOD ORDERABLES Final Result Performing Organization Address City/State/[facility] Co de Phone Number [facility] [address] [place] [phone] * Colonoscopy (04/16/2016) Anatomical Region Laterality Modality Endoscopy Narrative 04/16/2016 Normal colonoscopy us Shelia Saavedra MD ENDOSCOPY PROCEDURE ORDERAB LES Final Result from Last 3 Months or Most Recently Relevant to Health Maintenance Insurance [facility] , [address] [place] [address] * Guarantor: [place] Rg Account Type Relation to Patient Date of Phone Billing Address Personal/Family Self [address] [facility] MARGARITA AUGUSTIN Care Teams Community Center Director Relationship Specialty Start Date End Date Shelia Saavedra MD [address] [place] [address] [place] [address] PCP - General Internal Medicine 07/29/18
== END 2024-12-25 13:58 | disposition home or self-care (01) ==
LOC: HO.HOS 12:25
PROVIDERS: PCP Internal Medicine; Visit Provider Orthopaedic Surgery
DX: Z47.89 Encounter for other orthopedic aftercare (principal); Z98.890 Other specified postprocedural states
CPT/HCPCS: 99213

== ENCOUNTER → 2024-12-25 12:24 | Outpatient (BNVA) | payer OTHER, SELFPAY | PROVIDERS: PCP Internal Medicine; Visit Provider Orthopaedic Surgery ==

== ENCOUNTER → 2025-01-04 07:09 | Outpatient (BNV) | payer MEDICAID, SELFPAY | PROVIDERS: PCP Internal Medicine; Visit Provider Radiology Diagnostic Radiology | DX: M25.512 Pain in left shoulder (principal) | CPT/HCPCS: 73221 ==

== ENCOUNTER 2025-01-04 07:16 | Outpatient (REF) | payer MEDICAID, SELFPAY ==
--- NOTE | ~2025-01-04 | MR_ITS ---
EXAMINATION: MR SHOULDER WITHOUT CONTRAST, LEFT CLINICAL INFORMATION: Left shoulder pain since surgery, though improved since surgery. History of rotator cuff repair and tendon release 1-2 years ago TECHNIQUE: Multiplanar multisequence imaging through an upper extremity joint without contrast. PRIOR: MRI March 13, 2021 X-ray of March 11, 2023 FINDINGS: Rotator Cuff: There is somewhat globular intermediate and high fluid signal in supraspinatus tendon extending 2 cm from the footprint possibly extending to the bursal surface. There is minimal striated intermediate signal within subscapularis and infraspinatus tendons near footprint. There are changes from prior rotator cuff repair. Labrum: There is linear increased signal coursing under the anterior labrum at 2-3:00 o'clock is more evident on the current examination. There is intermediate signal in the superior labrum, increased from the prior. There is a 3 x 7 mm low signal filling defect in the joint capsule just anterior to superior labrum, at the base of the acromion. Long biceps tendon: The long biceps tendon is visible in the mid and lower bicipital groove. Long biceps tendon is attenuated in the upper biceps groove and the intra-articular portion. Acromioclavicular joint: Acromium appears thinner than on the prior examination consistent with acromioplasty. Small medium sized marginal osteophytes are evident at the distal clavicle. AC joint is intact with a small effusion. There is no subacromial subdeltoid bursal effusion. Axillary pouch: The axillary pouch is intact. Articular cartilage: There are no articular cartilage defects. Bones/Marrow: There are to retraction anchors placed related to prior rotator cuff repair. Soft tissues: There is no fatty streaking or muscle atrophy. There is no muscle edema. MR/MR shoulder LT wo con IMPRESSION: There are postoperative changes consistent with prior rotator cuff repair. There is evidence of intrasubstance delamination and degeneration of supraspinatus tendon extending 2 cm medially from the greater tuberosity. There is possible extension to the bursal surface. The tendon appears mildly thickened and frayed. There is evidence of tendinopathy involving lateral fibers of infraspinatus and subscapularis tendons. Suspected long biceps tenotomy. Acromioplasty. There is mild AC joint arthropathy and small A.C. Joint effusion. There is a 3 x 7 mm intra-articular body in the anterior superior joint, at the base of the acromion, just anterior to superior labrum. Intermediate signal through the base of the labrum at 2-3 o'clock is probably a physiologic foramen. Superior labrum is degenerated and frayed. Electronically signed by: Xiang Santoyo MD 01/04/2025 11:41 AM EDT
--- OUTSIDE RECORDS SUMMARY | 2025-01-04 07:19 | XMS_ITS | Clinical Summary ---
Author Organization [employer] Address [address] [facility] 7[address] [place] [address] Care Team Providers Care Tax Clerk Name Role Phone Shelia Saavedra MD Primary Care Provider [phone]- [phone] Allergies No known active allergies Medications Diclofenac [...] Encounters Date Type Department Care Team Description 12/28/2024 10:15 AM EDT Clinical Support [facility] [address] [place] [address] Josseline Hartman RN Encounter for immunization 12/28/2024 Travel 12/17/2024 Results Follow-Up [facility] [address] [place] [address] Shelia Saavedra MD XR Hand 3+Views Bilateral 12/15/2024 2:00 PM EDT Office Visit [facility] [address] [place] [address] Shelia Saavedra MD 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); Pain in both hands; Bunion of great toe; Callus; Left lower quadrant pain; 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 12/15/2024 Travel 12/15/2024 Refill [facility] [address] [place] [address] Shelia Saavedra MD Seasonal allergies 11/25/2024 Telephone [facility] [address] [place], [place] [phone] Shelia Saavedra MD Nurse Triage 10/19/2024 11:30 AM EDT Clinical Support [facility] [address] [place], [place] [phone] Jennifer Anderson RN Encounter for immunization 10/19/2024 Travel from Last 3 Months Immunizations Immunization Administration Dates Next Due Hep B, adult 12/28/2024,10/19/2024,09/08/2024 INFLUENZA VACCINE QUADRIVALE NT RECOMBINANT PRESERVATIVE FREE [...] Care Team (Late st Contact Info) Description 02/24/2025 8:00 AM EDT Office Visit [facility] [address] [place] [address] Evon Dick Health Maintenance Due Date Last [...] Completed 09/12/2024 Hepatitis C Screening Completed 09/12/2024 Hepatitis B Vaccines Completed 12/28/2024, 10/19/2024, 09/08/2024 HIB Vaccines Aged Out No longer [...] EDT Narrative 12/17/2024 9:19 AM EDT ? [facility] ?[address] ?[place] [address] ?XRay Report ? Signed ? Patient: Rg Malachi,[place] ?MR#: MM ?? [id number] ? : 1965 ?Acct:[id number] ? Age/Sex: 59 / M ?ADM Date: 12/17/24 ? Loc: HO.XRAY ? Attending Dr: Shelia Saavedra MD ? Ordering Physician: Shelia Saavedra MD ?? Date of Service: 12/17/24 ?? Procedure(s): XR Hand Bilat min 3v ?? Accession Number(s): [id number] ? cc: Shelia Saavedra MD ? EXAMINATION: [...] DD/ 0840 ? TD/TT: 12/17/24 0850 ? Prescriptionist: ? Procedure Note Bre Martin - 12/17/[address] [place] [address] XRay Report Signed Patient: [place] SultanaMR#: [id number] : 1965Acct:[id number] Age/Sex: 59 / MADM Date: 12/17/24 Loc: HO.XRAY Attending Dr: Shelia Saavedra MD Ordering Physician: Shelia Saavedra MD Date of Service: 12/17/24 Procedure(s): XR Hand Bilat min 3v Accession Number(s): [id number] cc: Shelia Saavedra MD EXAMINATION: XR HAND/WRIST, [...] 12/17/24 0916 DD/ 0840 TD/TT: 12/17/24 0850 Prescriptionist: us Shelia Saavedra MD IMG XR PROCEDURES Edited Re sult - Final * Hepatitis C Antibody with Reflex to HCV, RNA, Quantitative, Real-Time PCR (09/12/2024 7:44 AM EST) Hepatitis C Antibody Nonreactive Nonreactive [facility] Comment:Antibodies to HCV no t detected; does not exclude early acuteHCV infection. Blood Venous blood specimen / Unknown 09/12/2024 7:44 AM EST 09/12/2024 7:46 AM EST us Shelia Saavedra MD LAB BLOOD ORDERABLES Final Result Performing Organization Address [facility] Co de Phone Number [facility] [address] [place] [phone] * HIV-1/2 Antigen and Antibodies, Fourth Generation, with Reflexes (09/12/2024 7:44 AM EST) HIV AB/AG Nonreactive Nonreactive [facility] Comment:HIV-1 p24 Ag and/or HIV-1/HIV-2 Ab not detected.A test result that is nonreactive does not exclude thepossibility of exposure to or infection with HIV-1 and/orHIV-2. Nonreactive results in this assay for individualswith prior exposure to HIV-1 and/or HIV-2 may be due toantigen and antibody levels that are below the limit ofdetection of this assay.The [employer] HIV Ag/Ab Combo assay result andsupplemental assay results should be interpreted inconjunction with the patient's clinical presentation,history and other laboratory results. If the results areinconsistent with clinical evidence, additional testing issuggested to confirm the result. Blood Venous blood specimen / Unknown 09/12/2024 7:44 AM EST 09/12/2024 7:46 AM EST us Shelia Saavedra MD LAB BLOOD ORDERABLES Final Result Performing Organization Address [facility]/ZIP Co de Phone Number [facility] [address] [place] [phone] * (ABNORMAL) Lipid Panel, Standard (09/12/2024 7:44 AM EST) Triglycerides 67 <150 mg/dL [facility] Comment:Desirable Triglyceri de: less than 150 mg/dLBorderline High Triglyceride 150-199 mg/dLHigh Triglyceride: 200-499 mg/dLVery High Triglyceride: greater than or equal to 5OO mg/dL Cholesterol 221(H) <200 mg/dL [facility] Comment:Desirable Cholestero l: less than 200 mg/dLBorderline High Cholesterol: 200-239 mg/dLHigh Cholesterol: greater than 239 mg/dL LDL Cholesterol Calculated 149(H) <100 mg/dL [facility] Comment:Desirable LDL: less than 100 mg/dLNear Optimal/Above Optimal LDL: 110- 129 mg/dLBorderline High LDL: 130-159 mg/dLHigh LDL: 160-189 mg/dLVery High LDL: greater than or equal to 190 mg/dL HDL Cholesterol 59 >40 mg/dL [facility] Comment:Desirable HDL: great er than 40 mg/dL Note: This HDL assay may give artificially low results in patients with liver disease. Blood Venous blood specimen / Unknown 09/12/2024 7:44 AM EST 09/12/2024 7:46 AM EST us Shelia Saavedra MD LAB BLOOD ORDERABLES Final Result [facility] [address] [place] [phone] * Colonoscopy (04/16/2016) Anatomical Region Laterality Modality Endoscopy Narrative 04/16/2016 Normal colonoscopy us Shelia Saavedra MD ENDOSCOPY PROCEDURE ORDERAB LES Final Result from Last 3 Months or Most Recently Relevant to Health Maintenance Insurance [facility] STANDARD DENTAL - [facility]SN PARTIAL (MEDICAID) * Guarantor: [place] Rg Account Type Relation to Patient Date of Phone Billing Address Personal/Family Self [address] [facility] MARGARITA A[place]13 Care Teams Tax Clerk Relationship Specialty Start Date End Date Shelia Saavedra MD [address] [facility] MARGARITA Lee13 PCP - General Internal Medicine 07/29/18
== END 2025-01-04 07:17 | disposition home or self-care (01) ==
LOC: HO.MRI 07:16
PROVIDERS: PCP Internal Medicine; Visit Provider Orthopaedic Surgery
DX: Z98.890 Other specified postprocedural states (principal)
CPT/HCPCS: 73221

== ENCOUNTER 2025-01-14 14:30 | Outpatient (AMB) | payer MEDICAID, SELFPAY ==
--- NOTE | 2025-01-14 14:31 | MHC.OFFVIS ---
Intake Visit Reasons: Telehealth-Lt shoulder MRI review Intake Note: Alvin is a 58 year old right hand dominant male who presents today VIA telephone for a Left Shoulder MRI review. Hx of Left RTC Repair - Biceps Tenotomy and SAD 09/25/23. Allergies grass pollen (GRASS POLLEN) Allergy (Severe, Verified 12/25/24 12:28) Shortness of Breath nut - unspecified (NUT - UNSPECIFIED) Allergy (Intermediate, Verified 12/25/24 12:28) throat itching HPI HPI Telehealth-Lt shoulder MRI review: Details: Alvin is a 58 year old right hand dominant male who presents today VIA telephone for a Left Shoulder MRI review. Hx of Left RTC Repair - Biceps Tenotomy and SAD 09/25/23. He has been having to modify his work activities because of pain. He had a contralateral rotator cuff repair and that went well so he is frustrated because he does not know why this 1 is not going so smoothly. It has been almost a year and a half and he got a repeat MRI. He is moving to [place] at the end of this month and wanted to have a telephone visit. 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 Mother No problems noted. 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 IMPRESSION: There are postoperative changes consistent with prior rotator cuff repair. There is evidence of intrasubstance delamination and degeneration of supraspinatus tendon extending 2 cm medially from the greater tuberosity. There is possible extension to the bursal surface. The tendon appears mildly thickened and frayed. There is evidence of tendinopathy involving lateral fibers of infraspinatus and subscapularis tendons. Suspected long biceps tenotomy. Acromioplasty. There is mild AC joint arthropathy and small A.C. Joint effusion. There is a 3 x 7 mm intra-articular body in the anterior superior joint, at the base of the acromion, just anterior to superior labrum. Intermediate signal through the base of the labrum at 2-3 o'clock is probably a physiologic foramen. Superior labrum is degenerated and frayed. Assessment & Plan Assessment & Plan (1) S/P arthroscopy of right shoulder: Comment: [facility] Repair Code(s): Z98.890 - Other specified postprocedural states Category: Surgical Plan: Alvin is 14 months status post right shoulder rotator repair with biceps tenotomy. The surgery was uncomplicated and the tear was repairable. His MRI shows some degenerative changes in the joint with a small loose body as well as tendinosis around the rotator cuff repair. I had a long discussion with him regarding how to treat this. I think at some point if his pain persists it would not be unreasonable for a shoulder arthroscopy but there is nothing identifiable to repair at this point. I explained that sometimes in the setting of prior rotator cuff surgery it is difficult to identify new changes to the rotator cuff. He is moving to [place] and I recommend he he see an orthopedic surgeon there if you still has pain. He can contact me at any time for assistance. Coding Level of Care Code Tele Est Pt Level 3 (88286) Diagnoses S/P arthroscopy of right shoulder Z98.890
--- OUTSIDE RECORDS SUMMARY | 2025-01-14 15:47 | XMS_ITS | Clinical Summary ---
Author Organization [employer] Address [address] [place] [address] Care Team Providers Care Guest Experience Manager Name Role Phone Shelia Saavedra MD Primary Care Provider [phone] Allergies No known active allergies Medications Diclofenac Sodium 1 % gel Apply topically every 12 (twelve) hours. 2 Active econazole nitrate 1 % cream Apply topically every 12 (twelve) hours. 2 Active Diclofenac Sodium 1 % gelIndications: Acute pain of left shoulder APPLY 2 GRAM'S TO AFFECTED AREA(s) THREE TIMES DAILY NEEDED 100 g 3 4 Active fluticasone (Flonase) 50 MCG/ACT nasal spray INHALE ONE SPRAY IN EACH NOSTRIL ONCE DAILY 16 g 3 5 Active naproxen sodium (Anaprox) 550 MG tablet TAKE ONE TABLET TWICE DAILY NEEDED FOR PAIN 30 tablet 3 5 Active simvastatin (Zocor) 20 MG tablet TAKE ONE TABLET EVERY DAY 90 tablet 1 5 Active cholecalciferol VITAMIN D (Vitamin D-3) 50 MCG (2000 UT) capsule TAKE ONE CAPSULE EVERY DAY 90 capsule 1 5 Active loratadine (Claritin) 10 MG tabletIndicatio ns:Seasonal allergies TAKE ONE TABLET EVERY DAY 90 tablet 1 5 Active EPINEPHrine (Epipen) 0.3 MG/0.3ML injection syringeIndicati ons: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 use as directed for allergic reaction and then call 911 2 mL 2 Active Active Problems Problem Noted Date Diagnosed [...] Encounters Date Type Department Care Team Description 01/04/2025 Orders Only [facility] External Provider, [facility] 12/28/2024 10:15 AM EDT Clinical Support [facility] [address] [place] [address] Josseline Hartman RN Encounter for immunization 12/28/2024 Travel 12/17/2024 Results Follow-Up [facility] [address] [place] [address] Shelia Saavedra MD XR Hand 3+Views Bilateral 12/15/2024 2:00 PM EDT Office Visit [facility] [address] [place] [address] Shelia Saavedra MD 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); Pain in both hands; Bunion of great toe; Callus; Left lower quadrant pain; 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 12/15/2024 Travel 12/15/2024 Refill [facility] [address] [place] [address] Shelia Saavedra MD Seasonal allergies 11/25/2024 Telephone [facility] [address] [place], [place] [phone] Shelia Saavedra MD Nurse Triage 10/19/2024 11:30 AM EDT Clinical Support [facility] [address] [place] [address] Jennifer Anderson RN Encounter for immunization 10/19/2024 [...] 85 12/15/2024 2:08 PM EDT Temperature 36.6 C (97.9 F) 12/15/2024 2:08 PM EDT Respiratory Rate 20 12/15/2024 2:08 PM EDT [...] Description 02/24/2025 8:00 AM EDT Office Visit [facility] [address] [place] [address] Evon Dick Health Maintenance Due Date Last [...] Procedure Name Priority Date/Time Associated Diagnosis Comments MR SHOULDER WO CONTRAST LEFT Routine 01/04/2025 7:30 AM EDT XR HAND 3+ VIEWS BILATERAL Routine 12/17/2024 [...] Recently Relevant to Health Maintenance Results * MR Shoulder w/o Contrast Left (01/04/2025 7:30 AM EDT) Anatomical Region Laterality Modality Upper Extremities, Shoulder Left Magn etic Resonance 01/04/2025 7:30 AM EDT Narrative 01/04/2025 11:43 AM EDT [address] [address] Magnetic Resonance Report Signed Patient: Cuba Sultana MR#: [id number] : 1965 Acct:[id number] Age/Sex: 59 / M ADM Date: 01/04/25 Loc: .MRI Attending Dr: Salomón Barragan MD Ordering Physician: Salomón Barragan MD Date of Service: 01/04/25 Procedure(s): MR shoulder LT wo con Accession Number(s): [id number] cc: Shelia Saavedra MD; Salomón Barragan MD EXAMINATION: MR SHOULDER WITHOUT CONTRAST, LEFT CLINICAL INFORMATION: Left shoulder pain since surgery, though improved since surgery. History of rotator cuff repair and tendon release 1-2 years ago TECHNIQUE: Multiplanar multisequence imaging through an upper extremity joint without contrast. PRIOR: MRI March 13, 2021 X-ray of March 11, 2023 FINDINGS: Rotator Cuff: There is somewhat globular intermediate and high fluid signal in supraspinatus tendon extending 2 cm from the footprint possibly extending to the bursal surface. There is minimal striated intermediate signal within subscapularis and infraspinatus tendons near footprint. There are changes from prior rotator cuff repair. Labrum: There is linear increased signal coursing under the anterior labrum at 2-3:00 o'clock is more evident on the current examination. There is intermediate signal in the superior labrum, increased from the prior. There is a 3 x 7 mm low signal filling defect in the joint capsule just anterior to superior labrum, at the base of the acromion. Long biceps tendon: The long biceps tendon is visible in the mid and lower bicipital groove. Long biceps tendon is attenuated in the upper biceps groove and the intra-articular portion. Acromioclavicular joint: Acromium appears thinner than on the prior examination consistent with acromioplasty. Small medium sized marginal osteophytes are evident at the distal clavicle. AC joint is intact with a small effusion. There is no subacromial subdeltoid bursal effusion. Axillary pouch: The axillary pouch is intact. Articular cartilage: There are no articular cartilage defects. Bones/Marrow: There are to retraction anchors placed related to prior rotator cuff repair. Soft tissues: There is no fatty streaking or muscle atrophy. There is no muscle edema. MR/MR shoulder LT wo con IMPRESSION: There are postoperative changes consistent with prior rotator cuff repair. There is evidence of intrasubstance delamination and degeneration of supraspinatus tendon extending 2 cm medially from the greater tuberosity. There is possible extension to the bursal surface. The tendon appears mildly thickened and frayed. There is evidence of tendinopathy involving lateral fibers of infraspinatus and subscapularis tendons. Suspected long biceps tenotomy. Acromioplasty. There is mild AC joint arthropathy and small A.C. Joint effusion. There is a 3 x 7 mm intra-articular body in the anterior superior joint, at the base of the acromion, just anterior to superior labrum. Intermediate signal through the base of the labrum at 2-3 o'clock is probably a physiologic foramen. Superior labrum is degenerated and frayed. Electronically signed by: Xiang Santoyo MD 01/04/2025 11:41 AM EDT RP Dictated By: Xiang Santoyo MD Signed By: <Electronically signed by Xiang Santoyo MD in OV> 01/04/25 1141 DD/ 0730 TD/TT: 01/04/25 0800 Travel Accommodation Inspector: Procedure Note Donotuseinterpreter, Image - 01/04/2025 [place] [address] Magnetic Resonance Report Signed Patient: Cuba Sultana#: MM [id number] : 1965Acct:[id number] Age/Sex: 59 / MADM Date: 01/04/25 Loc: HO.MRI Attending Dr: Salomón Barragan MD Ordering Physician: Salomón Barragan MD Date of Service: 01/04/25 Procedure(s): MR shoulder LT wo con Accession Number(s): [id number] cc: Shelia Saavedra MD; Salomón Barragan MD EXAMINATION: MR SHOULDER WITHOUT CONTRAST, LEFT CLINICAL INFORMATION: Left shoulder pain since surgery, though improved since surgery. History of rotator cuff repair and tendon release 1-2 years ago TECHNIQUE: Multiplanar multisequence imaging through an upper extremity joint without contrast. PRIOR: MRI March 13, 2021 X-ray of March 11, 2023 FINDINGS: Rotator Cuff: There is somewhat globular intermediate and high fluid signal in supraspinatus tendon extending 2 cm from the footprint possibly extending to the bursal surface. There is minimal striated intermediate signal within subscapularis and infraspinatus tendons near footprint. There are changes from prior rotator cuff repair. Labrum: There is linear increased signal coursing under the anterior labrum at 2-3:00 o'clock is more evident on the current examination. There is intermediate signal in the superior labrum, increased from the prior. There is a 3 x 7 mm low signal filling defect in the joint capsule just anterior to superior labrum, at the base of the acromion. Long biceps tendon: The long biceps tendon is visible in the mid and lower bicipital groove. Long biceps tendon is attenuated in the upper biceps groove and the intra-articular portion. Acromioclavicular joint: Acromium appears thinner than on the prior examination consistent with acromioplasty. Small medium sized marginal osteophytes are evident at the distal clavicle. AC joint is intact with a small effusion. There is no subacromial subdeltoid bursal effusion. Axillary pouch: The axillary pouch is intact. Articular cartilage: There are no articular cartilage defects. Bones/Marrow: There are to retraction anchors placed related to prior rotator cuff repair. Soft tissues: There is no fatty streaking or muscle atrophy. There is no muscle edema. MR/MR shoulder LT wo con IMPRESSION: There are postoperative changes consistent with prior rotator cuff repair. There is evidence of intrasubstance delamination and degeneration of supraspinatus tendon extending 2 cm medially from the greater tuberosity. There is possible extension to the bursal surface. The tendon appears mildly thickened and frayed. There is evidence of tendinopathy involving lateral fibers of infraspinatus and subscapularis tendons. Suspected long biceps tenotomy. Acromioplasty. There is mild AC joint arthropathy and small A.C. Joint effusion. There is a 3 x 7 mm intra-articular body in the anterior superior joint, at the base of the acromion, just anterior to superior labrum. Intermediate signal through the base of the labrum at 2-3 o'clock is probably a physiologic foramen. Superior labrum is degenerated and frayed. Electronically signed by: Xiang Santoyo MD 01/04/2025 11:41 AM EDT Dictated By: Xiang Santoyo MD Signed By: <Electronically signed by Xiang Santoyo MD in OV> 01/04/25 1141 DD/ 0730 TD/TT: 01/04/25 0800 Travel Accommodation Inspector: [facility] External Provider IMG MRI PROCEDURES Edited Result - Final * XR Hand 3+Views Bilateral (12/17/2024 8:40 AM EDT) Anatomical Region Laterality Modality Upper Extremities, Hand Bilateral Radiogra phic Imaging 12/17/2024 8:40 AM EDT Narrative 12/17/2024 9:19 AM EDT [place] [address] XRay Report Signed Patient: Cuba Sultana MR#: [id number] : 1965 Acct:[id number] Age/Sex: 59 / M ADM Date: 12/17/24 Loc: [facility] Attending Dr: Shelia Saavedra MD Ordering Physician: Shelia Saavedra MD Date of Service: 12/17/24 Procedure(s): XR Hand Bilat min 3v Accession Number(s): [id number] cc: Shelia Saavedra MD EXAMINATION: XR HAND/WRIST, [...] Wai Ayoub MD 12/17/2024 09:16 AM EDT RP Dictated By: Wai Ayoub MD Signed By: <Electronically signed by Wai Ayoub MD in OV> 12/17/249[address] DD/ TD/TT: 12/17/24 0850 Travel Accommodation Inspector: Procedure Note Donotkwadwointerpreter, Image - 12/17/2024 [place] [address] XRay Report Signed Patient: Cuba Sultana#: MM [id number] : 1965Acct:[id number] Age/Sex: 59 / MADM Date: 12/17/24 Loc: HO.XRAY Attending Dr: Shelia Saavedra MD Ordering Physician: Shelia Saavedra MD Date of Service: 12/17/24 Procedure(s): XR Hand Bilat min 3v Accession Number(s): [id number] cc: Shelia Saavedra MD EXAMINATION: XR HAND/WRIST, [...] Wai Ayoub MD 12/17/2024 09:16 AM EDT RP Dictated By: Wai Ayoub MD Signed By: <Electronically signed by Wai Ayoub MD in OV> 12/17/24 0916 DD/ TD/TT: 12/17/24 0850 Travel Accommodation Inspector: us Shelia Saavedra MD IMG XR PROCEDURES Edited Re sult - Final * Hepatitis C Antibody with Reflex to HCV, RNA, Quantitative, Real-Time PCR (09/12/2024 7:44 AM EST) Hepatitis C Antibody Nonreactive Nonreactive [facility] Comment:Antibodies to HCV no t detected; does not exclude early acuteHCV infection. Blood Venous blood specimen / Unknown 09/12/2024 7:44 AM EST 09/12/2024 7:46 AM EST us Shelia Saavedra MD LAB BLOOD ORDERABLES Final Result Performing Organization Address [facility] Co de Phone Number [facility] [address] [place] [phone] * HIV-1/2 Antigen and Antibodies, Fourth Generation, with Reflexes (09/12/2024 7:44 AM EST) Pathologist [facility] HIV AB/AG Nonreactive Nonreactive [facility] Comment:HIV-1 p24 Ag and/or HIV-1/HIV-2 Ab not detected.A test result that is nonreactive does not exclude thepossibility of exposure to or infection with HIV-1 and/orHIV-2. Nonreactive results in this assay for individualswith prior exposure to HIV-1 and/or HIV-2 may be due toantigen and antibody levels that are below the limit ofdetection of this assay.[employer] HIV Ag/Ab Combo assay result andsupplemental assay results should be interpreted inconjunction with the patient's clinical presentation,history and other laboratory results. If the results areinconsistent with clinical evidence, additional testing issuggested to confirm the result. Blood Venous blood specimen / Unknown 09/12/2024 7:44 AM EST 09/12/2024 7:46 AM EST us Shelia Saavedra MD LAB BLOOD ORDERABLES Final Result Performing Organization Address [facility] Co de Phone Number [facility] [address] [place] [phone] * (ABNORMAL) Lipid Panel, Standard (09/12/2024 7:44 AM EST) Triglycerides 67 <150 mg/dL [facility] Comment:Desirable Triglyceri de: less than 150 mg/dLBorderline High Triglyceride 150-199 mg/dLHigh Triglyceride: 200-499 mg/dLVery High Triglyceride: greater than or equal to 5OO mg/dL Cholesterol 221(H) <200 mg/dL [facility] Comment:Desirable Cholestero l: less than 200 mg/dLBorderline High Cholesterol: 200-239 mg/dLHigh Cholesterol: greater than 239 mg/dL LDL Cholesterol Calculated 149(H) <100 mg/dL [facility] Comment:Desirable LDL: less than 100 mg/dLNear Optimal/Above Optimal LDL: 110- 129 mg/dLBorderline High LDL: 130-159 mg/dLHigh LDL: 160-189 mg/dLVery High LDL: greater than or equal to 190 mg/dL HDL Cholesterol 59 >40 mg/dL [facility] Comment:Desirable HDL: great er than 40 mg/dL Note: This HDL assay may give artificially low results in patients with liver disease. Blood Venous blood specimen / Unknown 09/12/2024 7:44 AM EST 09/12/2024 7:46 AM EST us Shelia Saavedra MD LAB BLOOD ORDERABLES Final Result [facility] [address] [place] [phone] [phone] * Colonoscopy (04/16/2016) Anatomical Region Laterality Modality Endoscopy Narrative 04/16/2016 Normal colonoscopy us Shelia Saavedra MD ENDOSCOPY PROCEDURE ORDERAB LES Final Result from Last 3 Months or Most Recently Relevant to Health Maintenance Insurance [facility] [place] [address] [facility] STANDARD DENTAL - [place]SN PARTIAL (MEDICAID) Care Teams Guest Experience Manager Relationship Specialty Start Date End Date Shelia Saavedra MD [address] [place] [address] [place]ARITA [place] [phone] PCP - General Internal Medicine 07/29/18
== END 2025-01-14 15:02 | disposition home or self-care (01) ==
LOC: HO.HOS 14:30
PROVIDERS: PCP Internal Medicine; Visit Provider Orthopaedic Surgery
DX: Z47.89 Encounter for other orthopedic aftercare (principal); Z98.890 Other specified postprocedural states
CPT/HCPCS: 99213

== ENCOUNTER → 2025-01-14 14:30 | Outpatient (BNVA) | payer SELFPAY | PROVIDERS: PCP Internal Medicine; Visit Provider Orthopaedic Surgery ==